=== PATIENT | male | born 1955 | race Caucasian/White ===

== ENCOUNTER 2020-01-29 11:48 | Outpatient (REF) | payer OTHER, SELFPAY | END 2020-01-29 11:49 | disposition home or self-care (01) | LOC: HO.WFDLDS 11:48 | PROVIDERS: Visit Provider Internal Medicine | DX: Z20.828 Contact with and (suspected) exposure to other viral communicable diseases (principal) | CPT/HCPCS: C9803; U0003 ==

== ENCOUNTER 2023-11-16 15:26 | Outpatient (AMB) | payer MEDICARE, OTHER, SELFPAY ==
--- NOTE | 2023-11-16 15:16 | MHC.PC.OV ---
Vital Signs 11/16/23 15:43 Height 5 ft 7.13 in Weight 189 lb BMI 29.5 BP 126/74 Blood Pressure Location Lt brachial Respiration 16 Pulse 92 Pulse Source Pulse Oximeter Pulse Oximetry (%) 96 Oxygen Delivery Method Room Air Intake Visit Reasons: [facility]era from [facility]/sick with cough of 2+weeks Intake Note: New patient visit [employer] Required: No Allergies No Known Allergies Allergy (Verified 11/16/23 15:36) Tobacco use date assessed: 11/16/23 Fall risk assessment: No Falls in past year Last assessed Fall Risk: 11/16/23 Dental Screening Dental Screen Date: 11/16/23 Did you have a dental visit in the last 12 months?: No Did you have a dental problem in the last 6 months where you did not have access to dental care?: Yes Was dental information given to patient?: Patient declined (Patient will go through the [place]) HPI HPI Comments History of Present Illness Details 68 year male with a past medical history of type hyperlipidemia, tobacco use, presenting to [facility]. He was recently seen in the emergency room after presenting with persistent shortness of breath and wheezing. CXR (-) for pneumonia. ACS r/o though EKG with non specific ST changes. He is frequently short of breath and has chest heaviness at times. Given steroids, breathing treatments discharged on prednisone albuterol. He has been using his sisters nebulizer machine and her vials. He just quit smoking ~3 weeks ago. CV: History of hyperlipidemia. On pravastatin. Exertional dyspnea as noted Due for colon cancer screening. ROS see HPI PHYSICAL EXAM: GENERAL: Alert and oriented x 3. NAD EYES: EOMI. Anicteric. HENT: Moist mucous membranes. No scleral icterus. No cervical lymphadenopathy. LUNGS: Clear to auscultation bilaterally. CARDIOVASCULAR: Regular rate and rhythm. No murmur. No JVD. ABDOMEN: Soft, non-tender +bs EXTREMITIES: No edema. Non-tender. SKIN: No rashes or lesions. Warm. NEUROLOGIC: No focal neurological deficits. CN II-XII grossly intact PSYCHIATRIC: Cooperative. Appropriate mood and affect [facility] Social History Housing: House Patient Tobacco Use Status: Former Tobacco user Cigarette Packs Per Day: 1 Years Smoked: 51 e-Cigarette/Vaping Use: Never Used Second Hand Smoke Exposure: No service: Yes Current occupational status: retired Cognitive needs: No Hearing needs: No Vision needs: Yes (needs glasses, [facility]) Questionnaire AUDIT C Alcohol Use Questionnaire (AUDIT-C) 1. How often do you have a drink containing alcohol?: Never 3. How often do you have six or more drinks on one occasion?: Never Total Score: 0 Physical exam (Primary Care) Vital Signs: Last Vital Signs Pulse 92 11/16/23 15:43 Resp 16 11/16/23 15:43 BP 126/74 11/16/23 15:43 Pulse Ox 96 11/16/23 15:43 Oxygen Delivery Method Room Air 11/16/23 15:43 BMI result Body Mass Index 29.5 Tobacco/Smoking Status: Tobacco use Status Tobacco use date assessed 11/16/23 11/16/23 15:46 Patient Tobacco Use Status Former Tobacco user 11/16/23 15:46 e-Cigarette/Vaping Use Never Used 11/16/23 15:46 Coding Level of Care Code New Pt Level 4 (57489) Complex EM visit Add On G2211 Diagnoses Chronic obstructive pulmonary disease with acute exacerbation J44.1 COPD type: COPD with acute exacerbation Exertional dyspnea R06.09 Encounter to establish care Z76.89 Assessment & Plan Assessment & Plan (1) COPD (chronic obstructive pulmonary disease): Code(s): J44.9 - Chronic obstructive pulmonary disease, unspecified Category: Medical Qualifiers: COPD type: COPD with acute exacerbation Qualified Code(s): J44.1 - Chronic obstructive pulmonary disease with (acute) exacerbation Plan: Prednisone completed Still coughing more than baseline. Wheezing has improved. Azithromycin ordered Referral to pulmonary placed PFTs ordered (2) Exertional dyspnea: Code(s): R06.09 - Other forms of dyspnea Category: Medical Plan: Stress test ordered (3) Encounter to establish care: Code(s): Z76.89 - Persons encountering health services in other specified circumstances Category: Medical Plan: 68 y/o to establish care. Past medical, surgical, social and family history reviewed. Orders: Orders Complete Blood Count Auto Diff 11/16/23 E78.5 - Hyperlipidemia, unspecified, R05.9 - Cough, unspecified, Z13.228 - Encounter for screening for other metabolic disorders, Z76.89 - Persons encountering health services in other specified circumstances Lipid Panel 11/16/23 E78.5 - Hyperlipidemia, unspecified, R05.9 - Cough, unspecified, Z13.228 - Encounter for screening for other metabolic disorders, Z76.89 - Persons encountering health services in other specified circumstances Comprehensive Met. Panel 11/16/23 E78.5 - Hyperlipidemia, unspecified, R05.9 - Cough, unspecified, Z13.228 - Encounter for screening for other metabolic disorders, Z76.89 - Persons encountering health services in other specified circumstances Hemoglobin A1c 11/16/23 E78.5 - Hyperlipidemia, unspecified, R05.9 - Cough, unspecified, Z13.228 - Encounter for screening for other metabolic disorders, Z76.89 - Persons encountering health services in other specified circumstances IRON PROFILE 11/16/23 E78.5 - Hyperlipidemia, unspecified, R05.9 - Cough, unspecified, Z13.228 - Encounter for screening for other metabolic disorders, Z76.89 - Persons encountering health services in other specified circumstances PFT pulmonary function test 11/16/23 J44.9 - Chronic obstructive pulmonary disease, unspecified CA stress test 11/16/23 R06.09 - Other forms of dyspnea Referrals Pulmonology Referral J44.9 - Chronic obstructive pulmonary disease, unspecified Medications: New albuterol sulfate 90 mcg/actuation 2 inhalations inhalation .every 4 hour PRN 8.5 grams 3RF shortness of breath or wheezing pravastatin 20 mg PO BEDTIME 90 tabs 3RF azithromycin 500 mg PO DAILY 6 tabs 0RF 6 days Trelegy Ellipta 200-62.5-25 mcg (smzjmyewlis-hpwbckynz-qrohytye) 1 inh inhalation DAILY 3 ea 3RF NS J44.9 - Chronic obstructive pulmonary disease, unspecified albuterol sulfate 2.5 mg (3 mL) inhalation Q4-6H PRN 90 mL 3RF shortness of breath or wheezing
[2023-11-16 15:43] VITALS: BP 126/74; PULSE 92; RESP 16; O2SAT 96; BMI 29.5
== END 2023-11-16 16:17 | disposition home or self-care (01) ==
PROVIDERS: Visit Provider Internal Medicine
DX: J44.1 Chronic obstructive pulmonary disease with (acute) exacerbation (principal); R06.09 Other forms of dyspnea; Z76.89 Persons encountering health services in other specified circumstances

== ENCOUNTER → 2023-11-16 15:26 | Outpatient (BNVA) | payer MEDICARE, SELFPAY | PROVIDERS: Visit Provider Internal Medicine | DX: J44.1 Chronic obstructive pulmonary disease with (acute) exacerbation (principal); R06.09 Other forms of dyspnea; Z76.89 Persons encountering health services in other specified circumstances | CPT/HCPCS: 99202 ==

== ENCOUNTER 2023-11-24 13:17 | Outpatient (AMB) | payer MEDICARE, SELFPAY ==
--- NOTE | 2023-11-24 12:37 | MHC.OFFVIS ---
Vital Signs 11/24/23 13:19 Height 5 ft 7.13 in Weight 190 lb 2 oz BMI 29.7 BP 130/76 Blood Pressure Location Lt brachial Position Sitting Pulse 82 Pulse Source Pulse Oximeter Pulse Oximetry (%) 96 Oxygen Delivery Method Room Air Intake Visit Reasons: COPD Allergies No Known Allergies Allergy (Verified 11/24/23 13:22) HPI HPI COPD: Details: Dave is a pleasant 68 year old male, former smoker, recently quit 1 month ago with 50+ pyh with underlying COPD and HLD. He was referred by PCP for pulmonary evaluation. He was seen at [facility] ED on 11/03 with worsening respiratory symptoms related to COPD exacerbation, treated with prednisone and discharged. CXR revealed findings suggestive of emphysema. He denies prior ED evaluations/admission for respiratory symptoms. He followed up with PCP on 11/15 who started patient on Trelegy and gave azithromycin 500 mg x 5 days given chest congestion and productive cough. He continues to report dyspnea with moderate exertion, cough and wheezing, however did not picking supervisor Trelegy. He has been using albuterol MDI/neb frequently. He denies prior h/o asthma. He reports significant environmental allergies as a child and recently noted symptoms recurring in the spring/fall. He does have cats at home which he is reportedly allergic to. 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 [facility] Social History (Reviewed 11/24/23 @ 13:21 by Xochilt Soares [facility]) Housing: House Patient Tobacco Use Status: Former Tobacco user Cigarette Packs Per Day: 1 Years Smoked: 51 e-Cigarette/Vaping Use: Never Used Second Hand Smoke Exposure: No service: Yes Current occupational status: retired Cognitive needs: No Hearing needs: No Vision needs: Yes (needs glasses, will go [facility]) Review of Systems Const Denies chills, Denies excessive sweating, Denies fever(s), Denies headache(s) and Denies night sweats Eyes Denies dry eyes, Denies irritation and Denies itchy eyes ENT Reports Normal hearing present, Denies headache(s), Denies nasal congestion, Denies nasal discharge, Denies post nasal drip and Denies sore throat Card Denies chest pain, Denies chest pain at rest, Denies chest pain with activity, Denies claudication, Denies leg edema, Reports dyspnea on exertion, Denies orthopnea and Denies paroxysmal nocturnal dyspnea Resp Denies chest congestion, Reports cough, Denies excessive phlegm production, Denies pain on inspiration, Denies pain with cough, Reports dyspnea on exertion, Denies stridor and Reports wheezing Musc Denies myalgias Neuro Reports Normal hearing present and Denies headache(s) Endo Denies excessive sweating Gaurav/Lymph Denies lymphadenopathy Aller/Immun Denies itchy eyes, Denies seasonal rhinorrhea and Reports wheezing Physical Exam Vital Signs: Last Vital Signs Pulse 82 11/24/23 13:19 BP 130/76 11/24/23 13:19 Pulse Ox 96 11/24/23 13:19 Oxygen Delivery Method Room Air 11/24/23 13:19 BMI result Body Mass Index 29.7 Const General: cooperative, healthy appearing, comfortable, no acute distress, well developed and alert Nutritional Appearance: obese Orientation/consciousness: patient oriented x3 Limitations: no limitations HEENT Head: Yes normal to inspection, Yes normocephalic and Yes atraumatic Ears: hearing grossly normal bilaterally and external ears normal Eyes General: appearance normal, both eyes and all related structures Eyelids: Yes eyelids normal Sclerae: sclerae normal EOM: EOMs intact bilaterally Neck Neck: Yes normal visual inspection and Yes no lymphadenopathy Lymphatic: no lymphadenopathy noted Chest Chest palpation & inspection: normal inspection of the chest Resp Effort & Inspection: normal respiratory effort, able to speak in complete sentences, no audible wheezes, no cough, no stridor, not tachypneic, no tripod positioning and no use of accessory muscles Auscultation: wheezes expiratory wheezes and throughout and diminished lung sounds Cardio Jugular venous distension: no JVD Rate: regular rate Rhythm: regular rhythm Skin Other: warm, dry General skin exam: no rashes or lesions noted Neuro General: patient oriented x3 Cranial nerves: Yes Normal hearing present Cognition (Neuro): normal cognition Gait exam (Neuro): Normal gait present Extrem General: Yes normal to inspection, Yes capillary refill normal, Yes no clubbing, cyanosis or edema and Yes no pedal edema Psych Appearance: grossly normal and well kempt Speech and movement: Normal speech and movement present and Clear speech present Affect: normal affect Attitude: cooperative Thought process: Normal thought process present Thought content: Normal thought content present Insight: Good insight present (Psych) Judgement: Good judgement present (Psych) Assessment & Plan Assessment & Plan (1) COPD (chronic obstructive pulmonary disease): Code(s): J44.9 - Chronic obstructive pulmonary disease, unspecified Category: Medical Qualifiers: COPD type: COPD with acute exacerbation Qualified Code(s): J44.1 - Chronic obstructive pulmonary disease with (acute) exacerbation (2) Nicotine dependence, cigarettes, uncomplicated: Code(s): F17.210 - Nicotine dependence, cigarettes, uncomplicated Category: Medical Plan Dave's symptoms are likely related to underlying COPD, unknown severity. Will send for PFT to assess as well as RAST given multiple allergies. Will also send for chest CT given significant smoking history to assess for any underlying parenchymal disease such as emphysema. He is requesting this order be sent to [facility]. Encouraged patient to picking supervisor Trelegy as he has suboptimal effect with albuterol. Discussed importance of good oral hygiene to prevent thrush. He is aware to call office if there are any issues obtaining inhaler. On exam patient with wheezing throughout. Will send prednisone. All questions were answered and patient is in agreement of plan. Will follow up to review results or sooner if needed. Orders: Orders Resp Allergy Profile Region I Today Z91.09 - Other allergy status, other than to drugs and biological substances PFT pulmonary function test Today J44.1 - Chronic obstructive pulmonary disease with (acute) exacerbation Immunoglobulin E Today Z91.09 - Other allergy status, other than to drugs and biological substances CT chest wo IV con Today F1210 - Nicotine dependence, cigarettes, uncomplicated Medications: New prednisone 40 mg (2 x 20 mg) PO DAILY 10 tabs 0RF Coding Level of Care Code New Pt Level 4 (99117) Diagnoses Chronic obstructive pulmonary disease with acute exacerbation J44.1 COPD type: COPD with acute exacerbation Nicotine dependence, cigarettes, uncomplicated F17.210
[2023-11-24 13:19] VITALS: BP 130/76; PULSE 82; O2SAT 96; BMI 29.7
== END 2023-11-24 14:05 | disposition home or self-care (01) ==
PROVIDERS: PCP Internal Medicine; Referring Provider Internal Medicine; Visit Provider Nurse Practitioner Family
DX: J44.1 Chronic obstructive pulmonary disease with (acute) exacerbation (principal); F17.210 Nicotine dependence, cigarettes, uncomplicated
CPT/HCPCS: 99204

== ENCOUNTER 2023-11-24 14:07 | Outpatient (REF) | payer OTHER, SELFPAY ==
[2023-11-24 17:39] LABS: MANUAL DIFF FLAG NO
[2023-11-24 17:44] LABS: Basophils Absolute Auto 0.1 X10*3/uL (0.0-0.2); Basophils Percent Auto 0.9 % (0-2); Eosinophils Absolute Auto 0.6 X10*3/uL (0.0-0.4); Eosinophils Percent Auto 7.9 % (0-4); Hematocrit 47.5 % (42.0-52.0); Hemoglobin 15.7 g/dl (14.0-18.0); Imm Gran Abs Auto 0.04 X10*3/uL (0.00-0.03); Imm Gran Pct Auto 0.6 % (0.0-0.4); Lymphocytes Absolute Auto 1.8 X10*3/uL (1.2-4.9); Lymphocytes Percent Auto 25.2 % (20-40); Mean Corpuscular HGB Conc 33.1 g/dl (31.0-36.0); Mean Corpuscular Volume 90.6 fL (80.0-98.0); Mean Platelet Volume 10.9 fL (9.4-12.4); Monocytes Absolute Auto 0.6 X10*3/uL (0.1-1.2); Neutrophils Percent Auto 57.4 % (45-73); Platelet Count 287 X10*3/uL (160-400); Red Blood Count 5.24 X10*6/uL (4.60-5.80); Red Cell Distribution Width 13.4 % (11.0-16.0)
[2023-11-24 17:54] LABS: Alanine Aminotransferase 24 U/L (0-40); Albumin Level 4.4 g/dL (3.5-5.0); Alkaline Phosphatase 73 U/L (39-117); Anion Gap 12 (12-20); Aspartate Amino Transferase 21 U/L (5-37); Bilirubin Total 0.7 mg/dL (0.0-1.0); Blood Urea Nitrogen 7 mg/dL (9-16); Calcium 9.7 mg/dL (8.4-10.2); Carbon Dioxide 28 mmol/L (22-29); Chloride 104 mmol/L (96-108); Cholesterol 204 mg/dL (<200); Estimated Average Glucose 111 mg/dL; Estimated Glomerular Filt Rate > 60; Glucose Random 85 mg/dL (60-115); HDL Cholesterol 68 mg/dL (>40); Hemoglobin A1C 143.3982 umol/L; Hemoglobin A1c % 5.5 % (<6.0); Iron 123 mcg/dL (45-160); LDL Cholesterol Calculated 122 mg/dL (<100); Percent Iron Saturation 45 % (15-50); Sodium 140 mmol/L (135-145); Total Hemoglobin (HGBA1C) 3970.8163 umol/L; Total Iron Binding Capacity 271 mcg/dL (228-428); Total Protein 7.6 g/dL (6.5-8.0); Triglycerides 74 mg/dL (<150); Unsaturated Iron Binding 148 ug/dL
[2023-11-25 19:09] LABS: Immunoglobulin E 423 kU/L (<OR=114)
[2023-11-29 10:26] LABS: Immunoglobulin E 422 (H)
[2023-11-29 10:27] LABS: Class Cat Dander 5; Class Cockroach 0; Class Dermatophagoides farinae 0; Class Dog Dander 2; Class Mouse Urine Protein 1; D002 - IgE D farinae <0.10; E001 - IgE Cat Dander 91.20 (H); E005 - IgE Dog Dander 3.25 (H); E072-IgE Mouse Urine 0.41 (H); I006-IgE Cockroach, German <0.10
[2023-11-29 10:28] LABS: Class Aspergillus fumigatus 0; Class Cladosporium herbarum 0; Class Timothy Grass 0/1; G006 - IgE Timothy Grass 0.21 (H); M002 - IgE Cladosporium herbar <0.10; M003 - IgE Aspergillus fumigat <0.10
[2023-11-29 10:29] LABS: Class Alternaria alternata 1; Class Mountain Cedar 0/1; Class Oak 0/1; Class Walnut Tree 0/1; M006 - IgE Alternaria alternat 0.38 (H); T006 - IgE Cedar, Mountain 0.32 (H); T007 - IgE Oak, White 0.24 (H); T010 - IgE Walnut 0.20 (H); T011 - IgE Maple Leaf Sycamore 0.33 (H)
[2023-11-29 10:30] LABS: Class Common Ragweed 0; Class Cottonwood 0/1; Class Derm. pterony 0; Class Mugwort 0; Class Sycamore 0/1; Class White Ash 0/1; Class White Mulberry 0/1; D001 IgE D pteronyssinus <0.10; T014 - IgE Cottonwood 0.27 (H); T015 - IgE Ash, White 0.26 (H); T070 - IgE White Mulberry 0.13 (H); W001 - IgE Ragweed, Short <0.10; W006 - IgE Mugwort <0.10
[2023-11-29 10:31] LABS: Class Bermuda Grass 0/1; G002 IgE Bermuda Grass 0.14 (H); M001 IgE Penicillium chrysogen <0.10
[2023-11-29 10:32] LABS: Class Birch 0/1; Class Penicillium crysogenum 0; T003 IgE Common Silver Birch 0.23 (H); T008 IgE Elm, American 0.13 (H)
[2023-11-29 10:33] LABS: Class Elm 0/1; Class Maple Box Elder 0/1; Class Rough Pigweed 0/1; Class Sheep Sorrel 0; T001 IgE Maple/Box Elder 0.34 (H); W014 IgE Pigweed, Common 0.14 (H); W018 IgE Sheep Sorrel <0.10
== END 2023-11-24 14:08 | disposition home or self-care (01) ==
LOC: HO.WFDLDS 14:07
PROVIDERS: Nurse Practitioner Family; Visit Provider Internal Medicine
DX: Z76.89 Persons encountering health services in other specified circumstances (principal); E78.5 Hyperlipidemia, unspecified; R05.9 Cough, unspecified; Z13.228 Encounter for screening for other metabolic disorders; Z91.09 Other allergy status, other than to drugs and biological substances; J44.1 Chronic obstructive pulmonary disease with (acute) exacerbation; F17.210 Nicotine dependence, cigarettes, uncomplicated; Z13.1 Encounter for screening for diabetes mellitus
CPT/HCPCS: 36415; 80053; 80061; 82785; 83036; 83540; 85025; 86003; 99202

== ENCOUNTER 2023-12-30 13:53 | Outpatient (REF) | payer MEDICARE, SELFPAY ==
[2023-12-30 11:28] VITALS: PULSE 91; O2SAT 96
--- NOTE | 2023-12-30 13:58 | PFT_ITS ---
indication: Lung nodule Spirometry [ FEV1 to FVC 81%; FEV1 2.04 L; FVC 2.52 L. No significant response to bronchodilators noted. Maximum voluntary ventilation 105% predicted] Lung Volumes [ total lung capacity 76%] Diffusion Capacity [ DLCO 73% predicted] comparisons [ none] Interpretation [ no obstructive ventilatory defects. No significant response to bronchodilators noted. Normal maximum voluntary ventilation. The patient does have a restrictive ventilatory defect consistent mild restrictive lung disease. In addition to that there is a mild diffusion impairment. Clinical correlation warranted.] MTDD
--- NOTE | 2023-12-31 13:10 | PFT_ITS ---
Indication: COPD Spirometry [FEV1 to FVC 31%; FEV1 1.24 L; FVC 3.98 L. there is a significant response to bronchodilators noted.] Lung Volumes [Total lung capacity 106% predicted; residual volume 126% predicted] Diffusion Capacity [DLCO 80% predicted] Comparisons [none] Interpretation [There is an obstructive ventilatory defect consistent with severe COPD. There was a significant response to bronchodilators noted. Significant air trapping due to the COPD. Diffusing capacity low normal. Clinical correlation warranted.] MTDD
== END 2023-12-30 13:54 | disposition home or self-care (01) ==
LOC: HO.RESP 13:53
PROVIDERS: PCP Internal Medicine; Visit Provider Internal Medicine
DX: J44.1 Chronic obstructive pulmonary disease with (acute) exacerbation (principal)
CPT/HCPCS: 94010; 94640; 94727; 94729

== ENCOUNTER → 2023-12-30 13:58 | Outpatient (BNV) | payer MEDICARE, SELFPAY | PROVIDERS: PCP Internal Medicine; Visit Provider Hospitalist | DX: J44.1 Chronic obstructive pulmonary disease with (acute) exacerbation (principal) | CPT/HCPCS: 94060; 94727; 94729 ==

== ENCOUNTER → 2023-12-31 13:10 | Outpatient (BNV) | payer MEDICARE, SELFPAY | PROVIDERS: PCP Internal Medicine; Visit Provider Hospitalist | DX: J44.9 Chronic obstructive pulmonary disease, unspecified (principal) | CPT/HCPCS: 94060; 94727; 94729 ==

== ENCOUNTER 2024-01-11 13:54 | Outpatient (AMB) | payer OTHER, SELFPAY ==
--- NOTE | 2024-01-11 13:56 | A.OFFVIS_ITS ---
Vital Signs 01/11/24 13:57 Height 5 ft 7.13 in Weight 201 lb 2 oz BMI 31.4 BP 142/70 H Blood Pressure Location Rt brachial Position Sitting Pulse 81 Pulse Source Pulse Oximeter Pulse Oximetry (%) 100 Oxygen Delivery Method Room Air Intake Visit Reasons: COPD Allergies No Known Allergies Allergy (Verified 01/11/24 14:00) HPI HPI COPD: Details: Dave is a pleasant 68 year old male, former smoker, recently quit 1 month ago with 50+ pyh with underlying COPD and HLD. He was recently seen at [facility] ED on 11/03 with worsening respiratory symptoms related to COPD exacerbation, treated with prednisone and discharged with moderate improvement in symptoms. He then followed up with PCP on 11/15 who started patient on Trelegy and gave azithromycin 500 mg x 5 days given chest congestion and productive cough. He continues to report dyspnea with moderate exertion, cough and wheezing, however did not waste picker Trelegy due to costs and had been using albuterol MDI/neb frequently. At the last visit he was started on Symbicort in addition to Spiriva which he receives through the [place] and [facility]. He was also given prednisone as he had moderate wheezing on exam. He reports significant improvements in symptoms with intermittent productive cough and minimal dyspnea/wheezing. Today he presents to review RAST testing and PFT. Orders placed for chest CT however this has not been performed yet. [facility] Social History (Reviewed 01/11/24 @ 14:02 by Xochilt Soares [facility]) Housing: House Patient Tobacco Use Status: Former Tobacco user Cigarette Packs Per Day: 1 Years Smoked: 51 e-Cigarette/Vaping Use: Never Used Second Hand Smoke Exposure: No service: Yes Current occupational status: retired Cognitive needs: No Hearing needs: No Vision needs: Yes (needs glasses, will go to [place]) Review of Systems Const Denies chills, Denies excessive sweating, Denies fever(s), Denies headache(s) and Denies night sweats Eyes Denies dry eyes, Denies irritation and Denies itchy eyes ENT Reports Normal hearing present, Denies headache(s), Denies nasal congestion, Denies nasal discharge, Denies post nasal drip and Denies sore throat Card Denies chest pain, Denies chest pain at rest, Denies chest pain with activity, Denies claudication, Denies leg edema, Reports dyspnea on exertion, Denies orthopnea and Denies paroxysmal nocturnal dyspnea Resp Denies chest congestion, Reports cough, Denies excessive phlegm production, Denies pain on inspiration, Denies pain with cough, Reports dyspnea on exertion, Denies stridor and Reports wheezing Musc Denies myalgias Neuro Reports Normal hearing present and Denies headache(s) Endo Denies excessive sweating Gaurav/Lymph Denies lymphadenopathy Aller/Immun Denies itchy eyes, Denies seasonal rhinorrhea and Reports wheezing Physical Exam Vital Signs: Last Vital Signs Pulse 81 01/11/24 13:57 BP 142/70 H 01/11/24 13:57 Pulse Ox 100 01/11/24 13:57 Oxygen Delivery Method Room Air 01/11/24 13:57 BMI result Body Mass Index 31.4 Const General: cooperative, healthy appearing, comfortable, no acute distress, well developed and alert Nutritional Appearance: obese Orientation/consciousness: patient oriented x3 Limitations: no limitations HEENT Head: Yes normal to inspection, Yes normocephalic and Yes atraumatic Ears: hearing grossly normal bilaterally and external ears normal Eyes General: appearance normal, both eyes and all related structures Eyelids: Yes eyelids normal Sclerae: sclerae normal EOM: EOMs intact bilaterally Neck Neck: Yes normal visual inspection and Yes no lymphadenopathy Lymphatic: no lymphadenopathy noted Chest Chest palpation & inspection: normal inspection of the chest Resp Effort & Inspection: normal respiratory effort, able to speak in complete sentences, no audible wheezes, no cough, no stridor, not tachypneic, no tripod positioning and no use of accessory muscles Auscultation: no wheezes and diminished lung sounds Cardio Jugular venous distension: no JVD Rate: regular rate Rhythm: regular rhythm Skin Other: warm, dry General skin exam: no rashes or lesions noted Neuro General: patient oriented x3 Cranial nerves: Yes Normal hearing present Cognition (Neuro): normal cognition Gait exam (Neuro): Normal gait present Extrem General: Yes normal to inspection, Yes capillary refill normal, Yes no clubbing, cyanosis or edema and Yes no pedal edema Psych Appearance: grossly normal and well kempt Speech and movement: Normal speech and movement present and Clear speech present Affect: normal affect Attitude: cooperative Thought process: Normal thought process present Thought content: Normal thought content present Insight: Good insight present (Psych) Judgement: Good judgement present (Psych) Assessment & Plan Assessment & Plan (1) COPD (chronic obstructive pulmonary disease): Code(s): J44.9 - Chronic obstructive pulmonary disease, unspecified Category: Medical Qualifiers: COPD type: COPD with acute exacerbation Qualified Code(s): J44.1 - Chronic obstructive pulmonary disease with (acute) exacerbation (2) Nicotine dependence, cigarettes, uncomplicated: Code(s): F17.210 - Nicotine dependence, cigarettes, uncomplicated Category: Medical Plan Reviewed PFT which revealed an obstructive ventilatory defect consistent with severe COPD. There was a significant response to bronchodilators noted. Elevated lung volumes suggestive of air trapping due to COPD. Diffusing capacity low normal, 80%. Awaiting chest CT to assess for any underlying parenchymal condition. Reviewed RAST which revealed multiple environmental allergies including cat. Discussed ways to minimize allergen exposures and has been doing well with zyrtec. Advised to continue symbicort 1 inhalation twice daily and spiriva as he has had significant improvement in symptoms. All questions were answered and patient is in agreement of plan. Will follow up in three months or sooner if needed. Coding Level of Care Code Est Pt Level 4 (64586) Diagnoses Chronic obstructive pulmonary disease with acute exacerbation J44.1 COPD type: COPD with acute exacerbation Nicotine dependence, cigarettes, uncomplicated F17.210
[2024-01-11 13:57] VITALS: BP 142/70; PULSE 81; O2SAT 100; BMI 31.4
--- OUTSIDE RECORDS SUMMARY | 2024-01-18 14:44 | XMS_ITS ---
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 This section includes the names of all active insurance providers for the patient. Insurance Provider Type of Coverage Plan Name Start of Policy Coverage End of Policy Coverage Group Number Member ID Insurance Provider's Telephone Number Policy Chao's Name Patient's Relationship to Policy Chao MEDICARE (WNR) MEDICARE (M) PART B Jul 09, 2020 PART B [id number] [id number] AMARA CHI PATIENT MEDICARE (WNR) MEDICARE (M) PART A Jan 09, 2020 PART A [id number] CHI MALONEY PATIENT Selected Encounter This section includes the information on record at [place] for the Encounter. Date/Time Encounter Type Encounter Description Reason Pro vider Source Oct 07, 2023 04:28 PM Outpatient Encounter ADMIN PAT ACTIVTIES (MASNONCT) IHE Encounter Template Text not used by [place] Plan of Treatment: Future Appointments (+ 6 months) and Future Tests (+/- 45 days) The Plan of Treatment section includes future care activities for the patient from all [facility]. This section includes future appointments and future orders which are active, pending or scheduled. Future Appointments This section includes appointments that were scheduled to occur 6 months from the date of the Encounter, up to a maximum of 20 appointments. The data comes from all [facility]. Appointment Date/Time Appointment Type Appointme nt Facility Name Mar 20, 2024 02:00 PM AMBULATORY - MEDICINE [facility] Active, Pending, and Scheduled Orders This section includes a listing of several types of active, pending, and scheduled orders, including clinic medications orders, diagnostic test orders, procedure orders and consult orders; where the start date of the order is 45 days before the date of the Encounter or 45 days after the date of theEncounter. The data comes from all [facility]. Test Date/Time Test Type Test Details Facility Name Sep 21, 2023 12:00 AM Laboratory - Chemi stry Order OCCULT BLOOD FIT X1 SCREEN(IN-HOUSE) [facility] Oct 30, 2023 12:00 AM Laboratory - Chemi stry Order BASIC METABOLIC PANEL (non-fasting) BLOOD (SST-SERUM) [facility] Oct 30, 2023 12:00 AM Laboratory - Chemi stry Order LIVER FUNCTION BLOOD (SST-SERUM) [facility] Oct 30, 2023 12:00 AM Laboratory - Chemi stry Order LIPID PANEL FASTING BLOOD (SST-SERUM) [facility] Oct 30, 2023 12:00 AM Laboratory - Chemi stry Order VITAMIN D (25-OH) BLOOD (SST-SERUM) [facility] Lab Results: +/- 30 days of the encounter This section includes the Chemistry and Hematology Lab Results on record with [place] for the patient. Radiology Reports and Pathology Reports are provided separately, in subsequent sections. Lab Results This section contains the Chemistry/Hematology Results that were resulted 30 days before or 30 daysafter the date of the Encounter. Date/Time Source Result Type Result - Unit Interpretation Reference Range Comment Sep 21, 2023 01:54 PM [facility] LIPID PANEL FASTING Specimen Type: SERUM No comment entered. Ordering Provider: PAPA LANGLEY Report Released Date/Time: Sep 21, 2023 01:41 PM Reporting Lab: [address] [address] Performing Lab: [address] [address] CHOLESTEROL 201 mg/dL H TRIGLYCERIDE 69 mg/dL 0-150 LDL calculated 129 mg/dL 0-129 CHOL/HDL 3.5 HDL CHOLESTEROL 58 mg/dL 40-60 Sep 21, 2023 01:54 PM [facility] BASIC METABOLIC PANEL (non-fasting) Specimen Type: SERUM No comment entered. Ordering Provider: PAPA LANGLEY Report Released Date/Time: Sep 21, 2023 01:41 PM Reporting Lab: [address] [address] Performing Lab: [address] [address] UREA NITROGEN 8 mg/dL 7-25 GLUCOSE 80 mg/dL 65-100 SODIUM 138 mmol/L 135-145 POTASSIUM 4.2 mmol/L 3.5-5.0 CHLORIDE 104 mmol/L 100-110 CO2 23 meq/L 20-30 CREATININE, Serum 0.85 mg/dL 0.50-1.40 eGFR(CKD-EPI 2020) >90 mL/min >60 Sep 21, 2023 01:54 PM [facility] VITAMIN D (25-OH) Specimen Type: SERUM No comment entered. Ordering Provider: PAPA LANGLEY Report Released Date/Time: Sep 21, 2023 01:41 PM Reporting Lab: [address] [address] Performing Lab: [address] [address] VITAMIN D (25-OH) 26 ng/mL 20-50 Sep 21, 2023 01:54 PM [facility] LIVER FUNCTION Specimen Type: SERUM No comment entered. Ordering Provider: PAPA LANGLEY Report Released Date/Time: Sep 21, 2023 01:41 PM Reporting Lab: [address] [address] Performing Lab: [address] [address] PROTEIN,TOTAL 7.5 g/dL 6.0-8.3 ALBUMIN 4.2 g/dL 3.5-5.0 ALKALINE PHOSPHATASE 69 U/L 40-150 AST 21 U/L 5-34 ALT 21 U/L BILIRUBIN, TOTAL 0.6 mg/dL 0.2-1.2 Encounter Notes: All associated encounter notes This section contains the clinical notes associated to the Encounter. Date/Time Encounter Note(s) Provider Source Oct 07, 2023 04:28 PM ADMINISTRATIVE NOTE: LOCAL TITLE: CCC: SCHEDULING ADMINISTRATION STANDARD TITLE: ADMINISTRATIVE NOTE DATE OF NOTE: OCT 07, 2023@16:28:34 ENTRY DATE: OCT 07, 2023@16:28:34 AUTHOR: MONIQUE KNOX EXP COSIGNER: URGENCY: STATUS: COMPLETED CCC: SCHEDULING ADMINISTRATION Has ADDENDA Patient Demographics Patient Name: CHI MALONEY Patient Primary Phone: [phone] Patient Primary [address] [address] [place] [address] Patient : 1955 Patient Age: 68 Current Location: [facility] Call Back Number: [phone] Caller/Recipient Relation to Patient: Self If Other Describe Relation to Patient: OTHER Caller Name: AMARA Scheduling Patient Expects Callback: Yes Administrative Administrative Note Reason: Returned Call Administrative Note Comments: 's returning missed phone regarding recent blood test result. Please reached out to vet at [phone]. Thanks IMPORTANT: This note was created by [facility] Clinical Contact Center staff. Please do not alert the staff member by adding them as a signer for future communications. Alerts are not monitored by this user. /valentín/ MONIQUE MORLEY Signed: 10/07/2023 16:28 Receipt Acknowledged By: 10/08/2023 11:35 /valentín/ JADIEL LARSEN LPN LPN 10/08/2023 08:43 /valentín/ MAURA WOODS,RN-BC REGISTERED NURSE (RN) 10/08/2023 ADDENDUM STATUS: COMPLETED Lab results were provided to . /valentín/ MAURA WOODS,RN-BC REGISTERED NURSE (RN) Signed: 10/08/2023 08:46 [facility]OMONI[facility]
--- OUTSIDE RECORDS SUMMARY | 2024-01-18 14:44 | XMS_ITS | Continuity of Care Document ---
Author Name [facility] Organization [facility] Care Team Providers Care Manager Developmental Name Role Phone [facility] Unavailable Unavailable Problems Combined list of problems from Department of Defense and Veterans Affairs facilities. It does not include entries that were removed or entered in error. Problem Status Onset Date Problem Type Date of Resolution Comments Source cannabinoid user Active Condition [facility] Chronic venous insufficiency Active Condition Mar 10, 2019 Entered By: ROSANGELA LANGLEY Comment: with symptomatic varicositiesMar 10, 2019 Entered By: ROSANGELA LANGLEY Comment: followed by Dr. Rakan Gasca, [facility] Co-management Active Condition Feb Entered By: ROSANGELA LANGLEY Comment: Dr. Saida Gomez, [facility] [place] [facility] Hyperlipidemia (SCT [id number]) Active Condition Mar 10, 2019 Entered By: ROSANGELA LANGLEY Comment: on pravastatinNov 14, 2019 Entered By: ROSANGELA LANGLEY Comment: LDL 03/2019 226; 08/2019 176 [facility] Insomnia Active Condition Jun 03 Entered By: CESAR CHRISTIAN Comment: reviewed [facility] Obstructive sleep apnea Active Condition Jul 09, 2020 Entered By: ROSANGELA LANGLEY Comment: 06/2020 overall Apnea-Hypopnea Index of 9.5/hr. [facility] Smokes tobacco daily (SNOMED CT [id number]) Active Condition [place] Tobacco use Active Condition Mar 10, 2019 Entered By: ROSANGELA LANGLEY Comment: 1 ppdJun 03, 2021 Entered By: CESAR CHRISTIAN Comment: reviewed [facility] Diagnosis: ICD-10-CM Z00.01 Encounter for general adult medical exam w abnormal findings Active Diagnosis [facility] [place] Diagnosis: ICD-10-CM E78.5 Hyperlipidemia, unspecified Active Diagnosis [place] Diagnosis: ICD-10-CM G47.00 Insomnia, unspecified Active Diagnosis [place] Diagnosis: ICD-10-CM Z13.6 Encounter for screening for cardiovascular disorders Active Diagnosis [facility] Diagnosis: ICD-10-CM Z72.0 Tobacco use Active Diagnosis [place] Medications Combined list of outpatient medications from Department of Defense and Veterans Affairs facilities.Medications provided include 1) outpatient medications from the last 15 months, and 2) patient-reported medications. Medication Details Route Status Patient Instructions Prescription Expires Prescription Number Last Dispense Date Ordering Provider Order Date Order Qty Source CETIRIZINE HCL 10MG TAB TAKE ONE TABLET BY MOUTH ONCE DAILY FOR ALLERGIE S ORAL ACTIVE 12/31/2024 [id number] MICHELINE LANGLEY O 2023 90 IELD FLUTICASONE 500MCG/SALM ETEROL 50MCG INHL,ORAL,D ISKUS,60 INHALE 1 PUFF BY MOUTH TWICE DAILY FOR [place] PREVENTI ON WITH COPD - RINSE MOUTH AFTER USE INSTEAD OF BRETZI RESPIR ATORY (INHAL ATION) ACTIVE 12/31/2024 [id number] MICHELINE LANGLEY O 2023 3 IELD MELATONIN 5MG CAP/TAB TAKE ONE CAPSULE/ TABLET BY MOUTH AT BEDTIME NEEDED FOR INSOMNIA ORAL 04/02/2023 [id number] FRANCISCA CHRISTIAN 2022 90 IELD PRAVASTATIN NA 20MG TAB TAKE ONE TABLET BY MOUTH ONCE DAILY FOR CHOLESTE ROL ORAL ACTIVE 06/17/2024 [id number] MICHELINE LANGLEY O 2023 90 IELD PRAVASTATIN NA 20MG TAB TAKE ONE TABLET BY MOUTH ONCE DAILY FOR CHOLESTE ROL ORAL DISCONT INUED 06/23/2023 [id number] MICHELINE LANGLEY O 2022 90 IELD TIOTROPIUM 2.5MCG/ACTU AT INHL,ORAL,6 0D,4GM INHALE 2 PUFFS BY MOUTH ONCE DAILY FOR [place] PREVENTI ON WITH COPD RESPIR ATORY (INHAL ATION) ACTIVE 12/31/2024 [id number] SHIVAM, APOLINARI O 2023 3 IELD TIOTROPIUM 2.5MCG/ACTU AT INHL,ORAL,6 0D,4GM INHALE 2 PUFFS BY MOUTH ONCE DAILY FOR BRONCHOS [place] PREVENTI ON WITH COPD RESPIR ATORY (INHAL ATION) 05/16/2023 [id number] SHIVAM, APOLINARI O 2023 3 IELD TRAZODONE HCL 100MG TAB TAKE ONE-HALF TO ONE TABLET BY MOUTH AT BEDTIME NEEDED -FOR SLEEP ORAL 09/22/2023 [id number] 3 SHIVAM, APOLINARI O 2022 90 IELD Immunizations Combined list of available immunizations from the Department of Defense and Veterans Affairs facilities. Immunization Series Date Given Administered By Site Reaction Lot Number CVX Code Drug Clinical Science Consultant Status Comments Source PNEUMOCOCCAL CONJUGATE PCV20, POLYSACCHARID E MSI039 CONJUGATE, ADJUVANT, PF 2022 WADE LARSEN RIGHT DELTO ID [id number] 216 complet ed [facility] TDAP 2022 WADE LARSEN RIGHT DELTO ID L 115 complet ed [facility] INFLUENZA, UNSPECIFIED FORMULATION 2022 88 complet ed [facility] INFLUENZA, UNSPECIFIED FORMULATION 2021 88 complet ed [facility] COVID-19 (MODERNA), MRNA, LNP-S, PF, 100 MCG/0.5ML DOSE OR 50 MCG/0.25ML DOSE 3 2020 207 complet ed [facility] INFLUENZA VACCINE, QUADRIVALENT, ADJUVANTED 2020 205 complet ed [facility] COVID-19 (MODERNA), MRNA, LNP-S, PF, 100 MCG/0.5 ML DOSE 2 2020 207 complet ed MOD; [id number]; 1 [facility] COVID-19 (MODERNA), MRNA, LNP-S, PF, 100 MCG/0.5 ML DOSE 1 2020 207 complet ed MOD; [id number]; 1 [place] INFLUENZA, INJECTABLE, QUADRIVALENT, PRESERVATIVE FREE 2019 150 complet ed [place] INFLUENZA, SEASONAL, INJECTABLE 2018 141 complet ed [facility] DTAP, UNSPECIFIED FORMULATION 2012 107 complet ed Site: Left Deltoid [place] PNEUMOCOCCAL, UNSPECIFIED FORMULATION 2012 109 complet ed Site: Right Deltoid [place] FLU,3 YRS (HISTORICAL) 2012 88 complet ed Site: Left Deltoid [place] Results Combined list of recent chemistry, hematology and other laboratory results from Department of Defense and Veterans Affairs, ranging from 15 months to all on record, depending upon the facility. Order Name Results Value Reference Range Date Interpretation Specimen Comments Source BASIC METABOLIC PANEL (non-fast ing) UREA NITROGEN [MASS/VOLUM E] IN SERUM OR PLASMA 8 mg/dL 7 - 25 09/20 Specimen Type: SERUM No comment entered. Ordering Provider: AMAIRANI LANGLEY Report Released Date/Time: Sep 21, 2023 01:41 PM Reporting Lab: [facility] [address] [facility] [address] Performing Lab: [facility] [address] [facility] [address] [facility] BASIC METABOLIC PANEL (non-fast ing) GLUCOSE [MASS/VOLUM E] IN SERUM OR PLASMA 80 mg/dL 65 - 100 09/20 Specimen Type: SERUM No comment entered. Ordering Provider: AMAIRANI LANGLEY Report Released Date/Time: Sep 21, 2023 01:41 PM Reporting Lab: [facility] [address] [facility] [address] Performing Lab: [facility] [employer] [address] [facility] BASIC METABOLIC PANEL (non-fast ing) SODIUM [MOLES/VOLU ME] IN SERUM OR PLASMA 138 mmol/L 135 - 145 09/20 Specimen Type: SERUM No comment entered. Ordering Provider: AMAIRANI LANGLEY Report Released Date/Time: Sep 21, 2023 01:41 PM Reporting Lab: [facility] [place] [facility] [address] [address] [facility] [address] Performing Lab: [facility] [place] [facility] [address] [facility] [facility] [address] [facility] [place] [facility] BASIC METABOLIC PANEL (non-fast ing) POTASSIUM [MOLES/VOLU ME] IN SERUM OR PLASMA 4.2 mmol/L 3.5 - 5.0 09/20 Specimen Type: SERUM No comment entered. Ordering Provider: AMAIRANI LANGLEY Report Released Date/Time: Sep 21, 2023 01:41 PM Reporting Lab: [facility] [place] [facility] [address] [address] [facility] [address] Performing Lab: [place] [facility] [address] [address] [facility] [place] [facility] BASIC METABOLIC PANEL (non-fast ing) CHLORIDE [MOLES/VOLU ME] IN SERUM OR PLASMA 104 mmol/L 100 - 110 09/20 Specimen Type: SERUM No comment entered. Ordering Provider: AMAIRANI LANGLEY Report Released Date/Time: Sep 21, 2023 01:41 PM Reporting Lab: [facility] [place] [address] [address] Performing Lab: [place] [facility] [place] [facility] [address] [facility] [facility] [address] [facility] [place] [facility] BASIC METABOLIC PANEL (non-fast ing) CARBON DIOXIDE, TOTAL [MOLES/VOLU ME] IN SERUM OR PLASMA 23 meq/L 20 - 30 09/20 Specimen Type: SERUM No comment entered. Ordering Provider: AMAIRANI LANGLEY Report Released Date/Time: Sep 21, 2023 01:41 PM Reporting Lab: [facility] [place] [facility] [address] [facility] [address] Performing Lab: [place] [facility] [place] [address] [address] [facility] BASIC METABOLIC PANEL (non-fast ing) CREATININE [MASS/VOLUM E] IN SERUM OR PLASMA 0.85 mg/dL 0.50 - 1.40 09/20 Specimen Type: SERUM No comment entered. Ordering Provider: AMAIRANI LANGLEY Report Released Date/Time: Sep 21, 2023 01:41 PM Reporting Lab: [facility] [address] [facility] [address] Performing Lab: [address] [address] [facility] BASIC METABOLIC PANEL (non-fast ing) GLOMERULAR FILTRATION RATE/1.73 SQ M.PREDICTED [VOLUME RATE/AREA] IN SERUM, PLASMA OR BLOOD BY CREATININE- BASED FORMULA (CKD-EPI 2020) >90mL/ min 60 09/20 Specimen Type: SERUM No comment entered. Ordering Provider: AMAIRANI LANGLEY Report Released Date/Time: Sep 21, 2023 01:41 PM Reporting Lab: [address] [address] Performing Lab: [address] [address] [facility] LIPID PANEL FASTING CHOLESTEROL [MASS/VOLUM E] IN SERUM OR PLASMA 201 mg/dL 09/20 H Specimen Type: SERUM No comment entered. Ordering Provider: AMAIRANI LANGLEY Report Released Date/Time: Sep 21, 2023 01:41 PM Reporting Lab: [address] [address] Performing Lab: [address] [address] [facility] LIPID PANEL FASTING TRIGLYCERID E [MASS/VOLUM E] IN SERUM OR PLASMA 69 mg/dL 0 - 150 09/20 Specimen Type: SERUM No comment entered. Ordering Provider: AMAIRANI LANGLEY Report Released Date/Time: Sep 21, 2023 01:41 PM Reporting Lab: [facility] [address] [facility] [address] Performing Lab: [facility] TRN [facility] [address] [facility] [address] [facility] LIPID PANEL FASTING CHOLESTEROL IN LDL [MASS/VOLUM E] IN SERUM OR PLASMA BY CALCULATION 129 mg/dL 0 - 129 09/20 Specimen Type: SERUM No comment entered. Ordering Provider: AMAIRANI LANGLEY Report Released Date/Time: Sep 21, 2023 01:41 PM Reporting Lab: [facility]ITALRNORTH MISSISSIP[facility] CENTERTRN [facility]OSPITALUSEUNIV[facility] [address] [facility] [address] Performing Lab: [facility]OSPITALRST. VINCENT'S CHILTONN [facility] HOSPITALUSEUNIVERSITY OF [facility] [address] [facility] [address] [facility] LIPID PANEL FASTING CHOLESTEROL .TOTAL/CHOL ESTEROL IN HDL [MASS RATIO] IN SERUM OR PLASMA 3.5 09/20 Specimen Type: SERUM No comment entered. Ordering Provider: AMAIRANI LANGLEY Report Released Date/Time: Sep 21, 2023 01:41 PM Reporting Lab: [facility]OSPITALRST. VINCENT'S CHILTONN [facility]OSPITALUSEUNIVERSITY [facility] [address] [facility] [address] Performing Lab: [facility]ITALRNORTH MISSISSIP[facility] MEDICAL CENTERTRN [facility]OSPITALUSEUNIVERSITY OF [facility] [address] [facility] [facility] [address] [facility] LIPID PANEL FASTING CHOLESTEROL IN HDL [MASS/VOLUM E] IN SERUM OR PLASMA 58 mg/dL 40 - 60 09/20 Specimen Type: SERUM No comment entered. Ordering Provider: AMAIRANI LANGLEY Report Released Date/Time: Sep 21, 2023 01:41 PM Reporting Lab: [facility]ITALRNORTH MISSISSIPPI MEDICAL CENTERTRN [facility]OSPITALUSEUNIVERSITY [facility] [address] [facility] [address] Performing Lab: [facility]ITALRNORTH MISSISSIP[facility] MEDICAL CENTERTRN [facility]OSPITALUSEUNIVERSITY OF [facility] [address] [facility] [address] [facility] LIVER FUNCTION PROTEIN [MASS/VOLUM E] IN SERUM OR PLASMA 7.5 g/dL 6.0 - 8.3 09/20 Specimen Type: SERUM No comment entered. Ordering Provider: SHIVAM,AP OLINARIO Report Released Date/Time: Sep 21, 2023 01:41 PM Reporting Lab: [facility] [place] [facility] [address] [facility] [address] Performing Lab: [facility] [place] [facility] [address] [facility] [address] [facility] [place] [facility] LIVER FUNCTION ALBUMIN [MASS/VOLUM E] IN SERUM OR PLASMA 4.2 g/dL 3.5 - 5.0 09/20 Specimen Type: SERUM No comment entered. Ordering Provider: AMAIRANI LANGLEY Report Released Date/Time: Sep 21, 2023 01:41 PM Reporting Lab: [facility] [place] [facility] [address] [address] Performing Lab: [facility] [place] [facility] [address] [facility] [address] [place] [facility] [place] [facility] LIVER FUNCTION ALKALINE PHOSPHATASE [ENZYMATIC ACTIVITY/VO LUME] IN SERUM OR PLASMA 69 U/L 40 - 150 09/20 Specimen Type: SERUM No comment entered. Ordering Provider: AMAIRANI LANGLEY Report Released Date/Time: Sep 21, 2023 01:41 PM Reporting Lab: [facility] [place] [facility] [address] [address] Performing Lab: [facility] [place] [facility] [address] [facility] [address] [facility] [place] [facility] LIVER FUNCTION ASPARTATE AMINOTRANSF ERASE [ENZYMATIC ACTIVITY/VO LUME] IN SERUM OR PLASMA 21 U/L 5 - 34 09/20 Specimen Type: SERUM No comment entered. Ordering Provider: AMAIRANI LANGLEY Report Released Date/Time: Sep 21, 2023 01:41 PM Reporting Lab: [facility] [place] [facility] [address] [address] Performing Lab: [facility] [place] [facility] [address] [address] [facility] [place] [facility] LIVER FUNCTION ALANINE AMINOTRANSF ERASE [ENZYMATIC ACTIVITY/VO LUME] IN SERUM OR PLASMA 21 U/L 09/20 Specimen Type: SERUM No comment entered. Ordering Provider: AMAIRANI LANGLEY Report Released Date/Time: Sep 21, 2023 01:41 PM Reporting Lab: [facility] [address] [facility] [address] Performing Lab: [facility] [address] [facility] [address] [facility] LIVER FUNCTION BILIRUBIN.T OTAL [MASS/VOLUM E] IN SERUM OR PLASMA 0.6 mg/dL 0.2 - 1.2 09/20 Specimen Type: SERUM No comment entered. Ordering Provider: AMAIRANI LANGLEY Report Released Date/Time: Sep 21, 2023 01:41 PM Reporting Lab: [facility] [address] [address] Performing Lab: [address] [address] [facility] VITAMIN D (25-OH) 25-HYDROXYV ITAMIN D3 [MASS/VOLUM E] IN SERUM OR PLASMA 26 ng/mL 20 - 50 09/20 Specimen Type: SERUM No comment entered. Ordering Provider: AMAIRANI LANGLEY Report Released Date/Time: Sep 21, 2023 01:41 PM Reporting Lab: [address] [address] Performing Lab: [address] [address] [facility] HEMOGLOBI N A1C PANEL HEMOGLOBIN A1C/HEMOGLO BIN.TOTAL IN BLOOD BY HPLC 5.0 4.0 - 5.6 04/14 Specimen Type: BLOOD Comment: Values obtained from A1C measurement s can vary. For atypical A1C assays, a reported value of 7.0 could actually be between 6.72 and 7.28 if measured by a reference method. A reported value of 9.0 could actually be between 8.73 and 9.27. Ref: http://www. ngsp.org/[place] Pdata.asp Ordering Provider: AMAIRANI LANGLEY Report Released Date/Time: Apr 08, 2023 09:54 AM Reporting Lab: [facility] [address] [address] Performing Lab: [facility] [address] [address] [facility] [place] TSH THYROTROPIN [UNITS/VOLU ME] IN SERUM OR PLASMA 3.60 u[IU]/ mL 0.35 - 5.00 04/14 Specimen Type: SERUM No comment entered. Ordering Provider: AMAIRANI LANGLEY Report Released Date/Time: Apr 08, 2023 09:54 AM Reporting Lab: [facility] [address] [address] Performing Lab: [facility] [place] [facility] [address] [facility] [address] [place] [facility] [place] [facility] CALCIUM CALCIUM [MASS/VOLUM E] IN SERUM OR PLASMA 9.0 mg/dL 8.5 - 10.2 04/14 Specimen Type: SERUM No comment entered. Ordering Provider: AMAIRANI LANGLEY Report Released Date/Time: Apr 08, 2023 09:54 AM Reporting Lab: [facility] [address] [address] Performing Lab: [facility] [place] [facility] [address] [address] [place] [facility] [facility] MAGNESIUM MAGNESIUM [MASS/VOLUM E] IN SERUM OR PLASMA 2.1 mg/dL 1.6 - 2.6 04/14 Specimen Type: SERUM No comment entered. Ordering Provider: AMAIRANI LANGLEY Report Released Date/Time: Apr 08, 2023 09:54 AM Reporting Lab: [facility] [address] [facility] [address] Performing Lab: [facility] [address] [address] [facility] [place] [facility] VITAMIN D (25-OH) 25-HYDROXYV ITAMIN D3 [MASS/VOLUM E] IN SERUM OR PLASMA 24 ng/mL 20 - 50 04/14 Specimen Type: SERUM No comment entered. Ordering Provider: AMAIRANI LANGLEY Report Released Date/Time: Apr 08, 2023 09:54 AM Reporting Lab: [facility] [place] [address] [address] Performing Lab: [facility] [place] [address] [address] [place] [facility] [place] [facility] MICROALBU MIN CREATININ E RATIO PANEL MICROALBUMI N/CREATININ E [MASS RATIO] IN URINE cancmg /g 0 - 29.9 04/14 Specimen Type: URINE No comment entered. Ordering Provider: AMAIRANI LANGLEY Report Released Date/Time: Apr 08, 2023 09:54 AM Reporting Lab: [facility] [place] [place] [address] [address] Performing Lab: [place] [facility] [place] [address] [address] [facility] MICROALBU MIN CREATININ E RATIO PANEL MICROALBUMI N [MASS/VOLUM E] IN URINE < 0.5mg/ dL 04/14 Specimen Type: URINE No comment entered. Ordering Provider: AMAIRANI LANGLEY Report Released Date/Time: Apr 08, 2023 09:54 AM Reporting Lab: [facility] [place] [address] [address] Performing Lab: [facility] [place] [address] [address] [facility] [facility] MICROALBU MIN CREATININ E RATIO PANEL CREATININE [MASS/VOLUM E] IN URINE 51.63 mg/dL 04/14 Specimen Type: URINE No comment entered. Ordering Provider: AMAIRANI LANGLEY Report Released Date/Time: Apr 08, 2023 09:54 AM Reporting Lab: [facility] [place] [address] [address] Performing Lab: [facility] [place] [facility] [address] [facility] [address] [facility] [place] [facility] Vital Signs Combined list of inpatient and outpatient Vital Signs from Department of Defense and Veterans Affairs, ranging from 12 months to all on record, depending upon the facility. Vital Sign Value Date Comments Source SYSTOLIC BLOOD PRESSURE 119 09/21/19 24 14:28:36 [facility] [place] DIASTOLIC BLOOD PRESSURE 79 024 14:28:36 [facility] [place] PULSE OXIMETRY 97 09/21/2023 14:28:36 [facility] WEIGHT 196.4 09/21/2023 14:28:36 [facility] BMI 29kg/m2 09/21/2023 14:28:36 [facility] PAIN 0 09/21/2023 14:28:36 [facility] HEIGHT 69 09/21/2023 14:28:36 [facility] TEMPERATURE 96.6 09/21/2023 14:28:36 [facility] PULSE 87 09/21/2023 14:28:36 [facility] [place] RESPIRATION 20 09/21/2023 14:28:36 [facility] [place] [facility] SYSTOLIC BLOOD PRESSURE 122 02/15/19 24 15:04:21 [facility] [place] [facility] DIASTOLIC BLOOD PRESSURE 78 024 15:04:21 [facility] [place] [facility] PULSE OXIMETRY 98% 02/15/2023 15:04:21 [facility] WEIGHT 201 02/15/2023 15:04:21 [facility] [place] [facility] BMI 30kg/m2 02/15/2023 15:04:21 [facility] [place] PAIN 0 02/15/2023 15:04:21 [facility] HEIGHT 69 02/15/2023 15:04:21 [facility] [place] [facility] TEMPERATURE 96.9 02/15/2023 15:04:21 [facility] [place] [facility] PULSE 82 02/15/2023 15:04:21 [facility] RESPIRATION 20 02/15/2023 15:04:21 [facility] [place] [facility] Encounters Combined list of: 1) Encounters from Department of Veterans Affairs facilities going back up to thelast 18 months. 2) Encounters from the Department of [facility] facilities going back up to 280 months. Location Location Details Encounter Type Encounter Number Reason For Visit Attending Provider ADM Date DC Date Status Disposition Source [facility] [place] [facility] Outpatient Encounter [id number] 09[place]18 [place] [facility] [facility] [place] [facility] Outpatient Encounter [id number] 09[place]21 [place] [facility] [facility] OFFICE O/P EST MOD 30-39 MIN [id number] Diagnos is: ICD-10- CM Z72.0 Tobacco use<br/ > Steven LANGLEY 09/21 [facility] ELECTROCAR DIOGRAM REPORT [id number] Diagnos is: ICD-10- CM Z13.6 Encount er for screeni ng for cardiov ascular disorde rs
IFEOMA [place] 09/21 [facility] LD OFFICE O/P EST LOW 20-29 MIN [id number] Diagnos is: ICD-10- CM G47.00 Insomni a, unspeci fied
OLE CHRISTIAN 09/30 [facility] [place] [facility] Outpatient Encounter [id number] 12/21 [place] [facility] [place] [facility] [place] [facility] Out[facility] Encounter [id number] 12/21 [facility] [place] En[facility] [id number] 01/11 [facility] [place] En[facility] [id number] 01/21 [facility] [place] En[facility] [id number] 01/21 [facility] [place] [facility] OFFICE O/P EST MOD 30 MIN [id number] Diagnos is: ICD-10- CM Z00.01 Encount er for general adult medical exam w abnorma l finding s
SHIVAM,A POLINARIO 02/15 [place] [facility] OFF[facility] O/P EST MOD 30 MIN [id number] Diagnos is: ICD-10- CM E78.5 Hyperli pidemia , unspeci fied
SHIVAM,A POLINARIO 04/28 [place] [facility] En[facility] [id number] 06/14 [facility] [place] En[facility] [id number] 06/14 [facility] En[facility] [id number] 06/15 [facility] Encounter [id number] 06/21 [facility] Outpatient Encounter [id number] ELIZA ESCOBAR 06/21 [facility] Outpatient Encounter [id number] 06/30 [facility] Outpatient Encounter [id number] 08/15 [facility] [place] OFFICE O/P EST MOD 30 MIN [id number] Diagnos is: ICD-10- CM Z00.01 Encount er for general adult medical exam w abnorma l finding s
Steven LANGLEY 09/20 [facility] Outpatient Encounter [id number] 10/06 [facility] Out[facility] Encounter [id number] 1.10/06 [facility] Out[facility] Encounter [id number] [facility] Outpatient Encounter [id number] 11/04 [facility] Out[facility] Encounter [id number] 12/28 [facility] Out[facility] Encounter [id number] 12/28 [facility] Encounter [id number] 1.12/28 [facility] Outpatient Encounter [id number] 12/30 [facility] Social History Combined list of available smoking, tobacco, and other social history from Department of Defense and Veterans Affairs facilities. 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 [place] Plan of Care List of future care activities from Department of Veterans Affairs facilities. Additional future care activities may be listed in the Assessment and Plan section. Date/Time Care Activity Care Activity Detail Facili ty 03/20/2024 AMBULATORY - MEDICINE AMBULATORY - MEDICI [facility] [place] [facility]
--- OUTSIDE RECORDS SUMMARY | 2024-01-18 14:44 | XMS_ITS | Encounter Summary ---
Author Name [facility] [place] Organization [place] Address [address] [place] [address] Care Team Providers Care Central Office Operator Name Role Phone SHERI LANGLEY Primary Care [...] PART B Jul 09, 2020 PART B [id number] CHI MALONEY PATIENT MEDICARE (WNR) MEDICARE (M) PART A Jan 09, 2020 PART A [id number] [id number] CHI MALONEY PATIENT Selected Encounter This section includes the information on record at [place] for the Encounter. Date/Time Encounter Type Encounter Description Reason Pro vider Source Oct 07, 2023 10:00 AM Outpatient Encounter PRIMARY CARE/MEDICINE IHE Encounter Template Text not used by [place] Plan of Treatment: Future Appointments (+ 6 [...] 20 appointments. The data comes from all [facility]. Appointment Date/Time Appointment Type Appointme nt Facility Name Mar 20, 2024 02:00 PM AMBULATORY - MEDICINE [facility] Active, Pending, and Scheduled Orders This section includes a listing of several types of active, pending, and scheduled orders, including clinic medications orders, diagnostic test orders, procedure orders and consult orders; where the start date of the order is 45 days before the date of the Encounter or 45 days after the date of theEncounter. The data comes from all [facility]. Test Date/Time Test Type Test Details Facility Name Sep 21, 2023 12:00 AM Laboratory - Chemi stry Order OCCULT BLOOD FIT X1 SCREEN(IN-HOUSE) [facility] Oct 30, 2023 12:00 AM Laboratory - Chemi stry Order BASIC METABOLIC PANEL (non-fasting) BLOOD (SST-SERUM) [facility] Oct 30, 2023 12:00 AM Laboratory - Chemi stry Order LIPID PANEL FASTING BLOOD (SST-SERUM) [facility] Oct 30, 2023 12:00 AM Laboratory - Chemi stry Order LIVER FUNCTION BLOOD (SST-SERUM) [facility] Oct 30, 2023 12:00 AM Laboratory - Chemi stry Order VITAMIN D (25-OH) BLOOD (SST-SERUM) [facility] Lab Results: +/- 30 days of the encounter This section includes the Chemistry and Hematology Lab Results on record with [place] for the patient. Radiology Reports and Pathology Reports are provided separately, in subsequent sections. Lab Results This section contains the Chemistry/Hematology Results that were resulted 30 days before or 30 daysafter the date of the Encounter. Date/Time Source Result Type Result - Unit Interpretation Reference Range Comment Sep 21, 2023 01:54 PM [facility] BASIC METABOLIC PANEL (non-fasting) Specimen Type: SERUM No comment entered. Ordering Provider: PAPA LANGLEY Report Released Date/Time: Sep 21, 2023 01:41 PM Reporting Lab: [address] [address] Performing Lab: [address] [address] UREA NITROGEN 8 mg/dL 7-25 GLUCOSE 80 mg/dL 65-100 SODIUM 138 mmol/L 135-145 POTASSIUM 4.2 mmol/L 3.5-5.0 CHLORIDE 104 mmol/L 100-110 CO2 23 meq/L 20-30 CREATININE, Serum 0.85 mg/dL 0.50-1.40 eGFR(CKD-EPI 2020) >90 mL/min >60 Sep 21, 2023 01:54 PM [facility] LIPID PANEL FASTING Specimen Type: SERUM No comment entered. Ordering Provider: PAPA LANGLEY Report Released Date/Time: Sep 21, 2023 01:41 PM Reporting Lab: [address] [address] Performing Lab: [address] [address] CHOLESTEROL 201 mg/dL H TRIGLYCERIDE 69 mg/dL 0-150 LDL calculated 129 mg/dL 0-129 CHOL/HDL 3.5 HDL CHOLESTEROL 58 mg/dL 40-60 Sep 21, 2023 01:54 PM [facility] VITAMIN D (25-OH) Specimen Type: SERUM No comment entered. Ordering Provider: PAPA LANGLEY Report Released Date/Time: Sep 21, 2023 01:41 PM Reporting Lab: [address] [address] Performing Lab: [address] [address] VITAMIN D (25-OH) 26 ng/mL 20-50 Sep 21, 2023 01:54 PM [facility] LIVER FUNCTION Specimen Type: SERUM No comment entered. Ordering Provider: PAPA LANGLEY Report Released Date/Time: Sep 21, 2023 01:41 PM Reporting Lab: [address] [address] Performing Lab: [address] [address] PROTEIN,TOTAL 7.5 g/dL 6.0-8.3 ALBUMIN 4.2 g/dL 3.5-5.0 ALKALINE PHOSPHATASE 69 U/L 40-150 AST 21 U/L 5-34 ALT 21 U/L BILIRUBIN, TOTAL 0.6 mg/dL 0.2-1.2 Encounter Notes: All associated encounter notes This section contains the clinical notes associated to the Encounter. Date/Time Encounter Note(s) Provider Source Oct 07, 2023 10:00 AM LETTERS: LOCAL TITLE: PATIENT LETTER (T) STANDARD TITLE: LETTERS DATE OF NOTE: OCT 07, 2023@10:00 ENTRY DATE: OCT 07, 2023@10:00:32 AUTHOR: ARAVIND GRACE COSIGNER: URGENCY: STATUS: COMPLETED DEPARTMENT OF [facility] [place] Toll Free Number Primary Care Telephone Assistance can be reached at extension [phone] [facility] scheduling can be reached at extension [phone] [facility] scheduling can be reached at ext [phone] [facility] Outpatient [address] [address] [phone] * [phone] * CHI MALONEY [address], [place] [address] Date: OCT 07, 2023 Dear : Our goal at the [facility] is to provide you with quality medical care. We have been trying to reach you unsuccessfully to schedule a appt with you at the [facility], [address] [place] [address] Please call us at Wednesday through Wednesday, 8am-4pm to schedule this appointment. Sincerely, Office Staff for: Primary Care [facility] [address] [place] [address] T [phone] Upcoming Appointments: No data available APPOINTMENT ABBREVIATION BUSTOS (SPOPC OR SO = [facility], [facility]) (GOPC OR GO = [place], [address] [facility]) (NHM or NO = [facility]) (VVC - Video Call) (Tel-X Telephone Visit) (TH - Telehealth) CHI MALONEY [address], [place], [address] [place], Sincerely, Your Primary Care Team [facility] [address] [facility] [address] [place] [address] [place] [address] [phone] [facility] [address] [place] [address] [place] [address] [phone] [facility] [address] [facility],[address]st Floor [address] [place] [phone] [place] [address] ARAVIND GRACE [place]
--- OUTSIDE RECORDS SUMMARY | 2024-01-18 14:44 | XMS_ITS ---
Author Name [facility] [place] Organization [facility] Address [address] [place] [address] Care Team Providers Care Hand Roller Engraver Name Role Phone SHERI LANGLEY Primary Care [...] PART B Jul 09, 2020 PART B [id number] AMARA CHI PATIENT MEDICARE (WNR) MEDICARE (M) PART A Jan 09, 2020 PART A [id number] [id number] CHI MALONEY PATIENT Selected Encounter This section includes the information on record at [place] for the Encounter. Date/Time Encounter Type Encounter Description Reason Pro vider Source Oct 07, 2023 01:21 PM Outpatient Encounter ADMIN PAT ACTIVTIES (MASNONCT) IHE Encounter Template Text not used by [place] Plan of Treatment: Future Appointments (+ 6 [...] 20 appointments. The data comes from all [facility]. Appointment Date/Time Appointment Type Appointme nt Facility Name Mar 20, 2024 02:00 PM AMBULATORY - MEDICINE [facility] Active, Pending, and Scheduled Orders This section includes a listing of several types of active, pending, and scheduled orders, including clinic medications orders, diagnostic test orders, procedure orders and consult orders; where the start date of the order is 45 days before the date of the Encounter or 45 days after the date of theEncounter. The data comes from all [facility]. Test Date/Time Test Type Test Details Facility Name Sep 21, 2023 12:00 AM Laboratory - Chemi stry Order OCCULT BLOOD FIT X1 SCREEN(IN-HOUSE) STOOL [facility] Oct 30, 2023 12:00 AM Laboratory - Chemi stry Order BASIC METABOLIC PANEL (non-fasting) BLOOD (SST-SERUM) [facility] Oct 30, 2023 12:00 AM Laboratory - Chemi stry Order LIPID PANEL FASTING BLOOD (SST-SERUM) [facility] Oct 30, 2023 12:00 AM Laboratory - Chemi stry Order LIVER FUNCTION BLOOD (SST-SERUM) [facility] Oct 30, 2023 12:00 AM Laboratory - Chemi stry Order VITAMIN D (25-OH) BLOOD (SST-SERUM) [facility] Lab Results: +/- 30 days of the encounter This section includes the Chemistry and Hematology Lab Results on record with [place] for the patient. Radiology Reports and Pathology Reports are provided separately, in subsequent sections. Lab Results This section contains the Chemistry/Hematology Results that were resulted 30 days before or 30 daysafter the date of the Encounter. Date/Time Source Result Type Result - Unit Interpretation Reference Range Comment Sep 21, 2023 01:54 PM [facility] BASIC METABOLIC PANEL (non-fasting) Specimen Type: SERUM No comment entered. Ordering Provider: PAPA LANGLEY Report Released Date/Time: Sep 21, 2023 01:41 PM Reporting Lab: [address] [address] Performing Lab: [address] [place] [address] UREA NITROGEN 8 mg/dL 7-25 GLUCOSE 80 mg/dL 65-100 SODIUM 138 mmol/L 135-145 POTASSIUM 4.2 mmol/L 3.5-5.0 CHLORIDE 104 mmol/L 100-110 CO2 23 meq/L 20-30 CREATININE, Serum 0.85 mg/dL 0.50-1.40 eGFR(CKD-EPI 2020) >90 mL/min >60 Sep 21, 2023 01:54 PM [facility] LIPID PANEL FASTING Specimen Type: SERUM No comment entered. Ordering Provider: PAPA LANGLEY Report Released Date/Time: Sep 21, 2023 01:41 PM Reporting Lab: [address] [address] Performing Lab: [address] [address] CHOLESTEROL 201 mg/dL H TRIGLYCERIDE 69 mg/dL 0-150 LDL calculated 129 mg/dL 0-129 CHOL/HDL 3.5 HDL CHOLESTEROL 58 mg/dL 40-60 Sep 21, 2023 01:54 PM [facility] VITAMIN D (25-OH) Specimen Type: SERUM No comment entered. Ordering Provider: PAPA LANGLEY Report Released Date/Time: Sep 21, 2023 01:41 PM Reporting Lab: [address] [address] Performing Lab: [address] [address] VITAMIN D (25-OH) 26 ng/mL 20-50 Sep 21, 2023 01:54 PM [facility] LIVER FUNCTION Specimen Type: SERUM No comment entered. Ordering Provider: PAPA LANGLEY Report Released Date/Time: Sep 21, 2023 01:41 PM Reporting Lab: [address] [address] Performing Lab: [address] [address] PROTEIN,TOTAL 7.5 g/dL 6.0-8.3 ALBUMIN 4.2 g/dL 3.5-5.0 ALKALINE PHOSPHATASE 69 U/L 40-150 AST 21 U/L 5-34 ALT 21 U/L BILIRUBIN, TOTAL 0.6 mg/dL 0.2-1.2 Encounter Notes: All associated encounter notes This section contains the clinical notes associated to the Encounter. Date/Time Encounter Note(s) Provider Source Oct 07, 2023 01:22 PM ADMINISTRATIVE NOTE: LOCAL TITLE: CCC: SCHEDULING ADMINISTRATION STANDARD TITLE: ADMINISTRATIVE NOTE DATE OF NOTE: OCT 07, 2023@13:22 ENTRY DATE: OCT 07, 2023@13:22 AUTHOR: NOAH FIELDS EXP COSIGNER: URGENCY: STATUS: COMPLETED CCC: SCHEDULING ADMINISTRATION Has ADDENDA Patient Demographics Patient Name: CHI MALONEY Patient Primary Phone: [phone] Patient Primary Address: [address] [place], [place] [id number] Patient : 1955 Patient Age: 68 Caller/Recipient Relation to Patient: Self Administrative Administrative Note Reason: Other Administrative Note Comments: [place] is requesting a call back. Reason: would like to know the results of his labs done a couple of weeks ago. Patient is getting low on his cholesterol medication and would like to know if he should continue it. requests Pact Team call him tomorrow. IMPORTANT: This note was created by [facility] Clinical Contact Center staff. Please do not alert the staff member by adding them as a signer for future communications. Alerts are not monitored by this user. /valentín/ NOAH FIELDS Visn 1 [facility] AMSA Signed: 10/07/2023 13:22 Receipt Acknowledged By: 10/08/2023 16:31 /valentín/ JADIEL LARSEN LPN LPN 10/07/2023 13:52 /valentín/ MAURA WOODS,RN-BC REGISTERED NURSE (RN) 10/07/2023 ADDENDUM STATUS: COMPLETED Left a vm message requesting him to call the clinic back to discuss his concerns. /valentín/ MAURA WOODS,RN-BC REGISTERED NURSE (RN) Signed: 10/07/2023 14:05 NOAH FIELDS [place] [facility]
--- OUTSIDE RECORDS SUMMARY | 2024-01-18 14:45 | XMS_ITS | Encounter Summary ---
Author Name [facility] [place] Organization [place] Address [address] [place] [address] Care Team Providers Care Provider Education Specialist Name Role Phone SHERI LANGLEY Primary Care [...] PART B Jul 09, 2020 PART B [id number] CHI MALONEY PATIENT MEDICARE (WNR) MEDICARE (M) PART A Jan 09, 2020 PART A [id number] [id number] SAI MALONEYALD PATIENT Selected Encounter This section includes the information on record at [place] for the Encounter. Date/Time Encounter Type Encounter Description Reason Pro vider Source July 01, 2023 02:18 PM Outpatient Encounter PRIMARY CARE/MEDICINE IHE Encounter Template Text not used by [place] Plan of Treatment: Future Appointments (+ 6 [...] 20 appointments. The data comes from all [place] treatment facilities. Appointment Date/Time Appointment Type Appointme nt Facility Name Sep 09, 2023 02:30 PM AM[place]ULATORY - [place]ICINE [place] [facility] [place] [facility] Sep 21, 2023 02:00 PM [facility] [place] [facility] Encounter Notes: All associated encounter notes This section contains the clinical notes associated to the Encounter. Date/Time Encounter Note(s) Provider Source July 01, 2023 02:18 PM ADMINISTRATIVE NOT E: LOCAL TITLE: ADMINISTRATIVE NOTE STANDARD TITLE: ADMINISTRATIVE NOTE DATE OF NOTE: JULY 01, 2023@14:18 ENTRY DATE: JULY 01, 2023@14:18:53 AUTHOR: NARAYAN CALDWELL EXP COSIGNER: URGENCY: STATUS: COMPLETED ADMINISTRATIVE NOTE Has ADDENDA Please request Colonoscopy/biopsy/lab results/ immunization and medication list from Dr. Saida Gomez, [facility] /valentín/ MAURA WOODS,RN-BC REGISTERED NURSE (RN) Signed: 07/01/2023 14:20 Receipt Acknowledged By: 07/01/2023 15:28 /valentín/ ARAVIND EARLY 07/01/2023 ADDENDUM STATUS: COMPLETED Parks Worker requested medical records from [facility] /valentín/ ARAVIND EARLY Signed: 07/01/2023 15:28 NARAYAN CALDWELL
--- OUTSIDE RECORDS SUMMARY | 2024-01-18 14:45 | XMS_ITS | Encounter Summary ---
Author Name [facility] [place] Address [address] [place] [address] Care Team Providers Care Barrel Scraper Name Role Phone SHERI LANGLEY Primary Care [...] PART B Jul 09, 2020 PART B [id number] [id number] CHI MALONEY PATIENT MEDICARE (WNR) MEDICARE (M) PART A Jan 09, 2020 PART A [id number] [id number] CHI MALONEY PATIENT Selected Encounter This section includes the information on record at [place] for the Encounter. Date/Time Encounter Type Encounter Description Reason Provider Source June 22, 2023 11:10 AM Outpatient Encounter TELEPHONE TRIAGE PRANAV ESCOBAR Shaan Encounter Template Text not used by [place] Plan of Treatment: Future Appointments (+ 6 [...] 20 appointments. The data comes from all [place] treatment facilities. Appointment Date/Time Appointment Type Appointme nt Facility Name Sep 09, 2023 02:30 PM AMBULATORY - [place]ICINE [place] [facility] [place] [facility] Sep 21, 2023 02:00 PM AMBULATORY - MEDICINE [facility] NTR [facility] Encounter Notes: All associated encounter notes This section contains the clinical notes associated to the Encounter. Date/Time Encounter Note(s) Provider Source June 22, 2023 11:10 AM RN PROGRESS NOTE: LOCAL TITLE: CCC: CLINICAL TRIAGE STANDARD TITLE: RN PROGRESS NOTE DATE OF NOTE: JUNE 22, 2023@11:10:09 ENTRY DATE: JUNE 22, 2023@11:10:09 AUTHOR: PRANAV ESCOBAR EXP COSIGNER: URGENCY: STATUS: COMPLETED CCC: CLINICAL TRIAGE Has ADDENDA Patient Demographics Patient Name: CHI MALONEY Patient Primary Address: [address] [place] [address] Patient Primary Phone: [phone] Patient : 1955 Patient Age: 68 Call Back Number: [phone] Caller/Recipient Relation to Patient: Self Emergency Contact: JUAN MONTOYA Triage Summary Chief Complaint: R/S physical Nursing Plan and Disposition Advised of [place] Act UC Benefits Other course(s) of action Generated msg to PACT/Provider Nurse Summary Nurse Summary: [place] calling to reschedule appointment for yearly Physical. He reports current ? allergy symptoms but declines Triage or acute scheduling Forwarding to PC team for f/u scheduling Clinical Contact Center Codes Clinic/Location: V1 CWM PHONE CCC RN /valentín/ PRANAV ESCOBAR VISN1 ROBB RN Signed: 06/22/2023 11:10 Receipt Acknowledged By: 06/22/2023 11:27 /es/ ARAVIND EARLY 06/24/2023 10:23 /es/ JADIEL LARSEN LPN LPN 06/22/2023 11:39 /es/ MAURA WOODS,RN-BC REGISTERED NURSE (RN) 06/22/2023 ADDENDUM STATUS: COMPLETED [employer] spoke to and informed him of his next scheduled appt on 08/16/23 @ 2:00 pm. Also advised of sick call hours if needed. /valentín/ ARAVIND EARLY Signed: 06/22/2023 11:26 PRANAV ESCOBAR [facility]
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
--- OUTSIDE RECORDS SUMMARY | 2024-01-18 14:45 | XMS_ITS ---
Author Name [facility] of [facility] ([place]) Organization [facility] Address [address] [place] [id number] Care Team Providers Care Joint Terminal Attack Controller Name Role Phone SHERI LANGLEY Primary Care [...] PART B Jul 09, 2020 PART B [id number] [facility]ARA [facility] PATIENT MEDICARE (WNR) MEDICARE (M) PART A Jan 09, 2020 PART A [id number] [facility] PATIENT Selected Encounter This section includes the information on record at [place] for the Encounter. Date/Time Encounter Type Encounter Description Reason Pro vider Source Aug 16, 2023 07:14 AM Outpatient Encounter ADMIN PAT ACTIVTIES (MASNONCT) IHE Encounter Template Text not used by [place] Plan of Treatment: Future Appointments (+ 6 [...] 20 appointments. The data comes from all [facility]. Appointment Date/Time Appointment Type Appointme nt Facility Name Sep 09, 2023 02:30 PM AMBULATORY - MEDICINE [facility] Sep 21, 2023 02:00 PM AMBULATORY - MEDICINE [facility] Active, Pending, and Scheduled Orders This section includes a listing of several types of active, pending, and scheduled orders, including clinic medications orders, diagnostic test orders, procedure orders and consult orders; where the start date of the order is 45 days before the date of the Encounter or 45 days after the date of theEncounter. The data comes from all [facility]. Test Date/Time Test Type Test Details Facility Name Sep 21, 2023 12:00 AM Laboratory - Chemi stry Order OCCULT BLOOD FIT X1 SCREEN(IN-HOUSE) STOOL [facility]EC[facility] Encounter Notes: All associated encounter notes This section contains the clinical notes associated to the Encounter. Date/Time Encounter Note(s) Provider Source Aug 16, 2023 07:14 AM ADMINISTRATIVE NOT E: LOCAL TITLE: CCC: SCHEDULING ADMINISTRATION STANDARD TITLE: ADMINISTRATIVE NOTE DATE OF NOTE: AUG 16, 2023@07:14 ENTRY DATE: AUG 16, 2023@07:14:32 AUTHOR: QUIQUELARISA JACINTO COSIGNER: URGENCY: STATUS: COMPLETED Verify Patient Demographics Successfully verified patient demographics vet cancelled his appt for 08/15 @ 2:00PM with pact pcp and R/s for 09/20 @ 2:00PM /valentín/ LARISA EARLY Signed: 08/16/2023 07:15 Receipt Acknowledged By: 08/16/2023 08:39 /valentín/ LARISA [facility]
--- OUTSIDE RECORDS SUMMARY | 2024-01-18 14:46 | XMS_ITS | Encounter Summary ---
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 Date/Time Encounter Type Encounter Description Reason Provider Source Feb 15, 2023 02:30 PM OFFICE O/P EST MOD 30 MIN PRIMARY CARE/MEDICINE ICD-10-CM Z00.01 Encounter for general adult medical exam w abnormal findings RICKY LANGLEY IHShaan Encounter Template Text not used by [place] Assessments - Encounter Diagnoses This section includes the primary and secondary diagnoses documented for the Encounter. Date/Time Primary/Secondary Diagnosis Diagnosis Name Provider Source Feb 15, 2023 04:35 PM PRIMARY Encounter for general adult medical exam w abnormal findings ANNELIESE LANGLEY [place] Feb 15, 2023 04:35 PM SECONDARY Hyperlipidemia, unspecified SHIVAMANNELIESE Harris [place] Feb 15, 2023 04:35 PM SECONDARY Tobacco use ANNELIESE LANGLEY [place] Plan of Treatment: Future Appointments (+ 6 months) and Future Tests (+/- 45 days) The Plan of Treatment section includes future care activities for the patient from all [place] treatmentfacilities. This section includes future appointments and future orders which are active, pending or scheduled. Future Appointments This section includes appointments that were scheduled to occur 6 months from the date of the Encounter, up to a maximum of 20 appointments. The data comes from all [place] treatment facilities. Appointment Date/Time Appointment Type Appointme nt Facility Name Apr 29, 2023 12:30 PM AMBULATORY - MEDICINE [facility] Social History: Smoking Status (Most current) and Tobacco Use (All prior to encounter date) This section includes the most current, and the historical, smoking and tobacco- related health factors from the [place] facility where the Encounter took place. Current Smoking Status This section includes the most current smoking, or tobacco-related health factor, from the [place] facility where the Encounter took place. Date/Time Current Smoking Status Comment Facil itnam June 22, 2022 02:30 PM VA-TOBACCO USER EVERY DAY [place] Tobacco Use History This section includes a history of the smoking, or tobacco-related health factors, that were collected on or before the date of the Encounter. The data comes from the [place] facility where the Encounter took place. Date/Time Smoking Status/Tobacco Use Comment F acility June 22, 2022 02:30 PM VA-TOBACCO USE ADVICE [facility] June 22, 2022 02:30 PM VA-TOBACCO USE CARE TRANSITION MGR NO [place] June 22, 2022 02:30 PM VA-TOBACCO USE MED NO [place] June 22, 2022 02:30 PM VA-TOBACCO USE WI 30 MIN OF WAKEUP [place] June 22, 2022 02:30 PM VA-TOBACCO USER EVERY DAY [facility] Jun 03, 2021 01:30 PM VA-TOBACCO USE 30 YEARS OR MORE [facility] Jun 03, 2021 01:30 PM VA-TOBACCO USE ADVICE [place] Jun 03, 2021 01:30 PM VA-TOBACCO USE CARE TRANSITION MGR NO [place] Jun 03, 2021 01:30 PM VA-TOBACCO USE MED NO [place] Jun 03, 2021 01:30 PM VA-TOBACCO USE WI 30 MIN OF WAKEUP [place] Jun 03, 2021 01:30 PM VA-TOBACCO USER EVERY DAY [facility] Apr 22, 2020 01:00 PM VA-TOBACCO USE 30 YEARS OR MORE [place] Apr 22, 2020 01:00 PM VA-TOBACCO USE ADVICE [place] Apr 22, 2020 01:00 PM VA-TOBACCO USE CARE TRANSITION MGR NO [place] Apr 22, 2020 01:00 PM VA-TOBACCO USE MED NO [place] Apr 22, 2020 01:00 PM VA-TOBACCO USE WI 30 MIN OF WAKEUP [place] Apr 22, 2020 01:00 PM VA-TOBACCO USER EVERY DAY [facility] Feb 21, 2019 12:24 PM VA-TOBACCO USE 30 YEARS OR MORE [place] Feb 21, 2019 12:24 PM VA-TOBACCO USE ADVICE [place] Feb 21, 2019 12:24 PM VA-TOBACCO USE CARE TRANSITION MGR NO [place] Feb 21, 2019 12:24 PM VA-TOBACCO USE MED NO [place] Feb 21, 2019 12:24 PM VA-TOBACCO USE WI 30 MIN OF RIVERSIDEUP [place] Feb 21, 2019 12:24 PM VA-TOBACCO USER EVERY DAY [facility] Apr 20, 2012 09:05 AM CURRENT SMOKER pt smokes a half a pack of cigaretts a day. [facility] Apr 20, 2012 09:05 AM V1-PT DECLINES REF TO TOBACCO CESS PRGM [place] Apr 20, 2012 09:05 AM V1-PT THINKING ABO UT QUIT TOBACCO USE [place] Encounter Notes: All associated encounter notes This section contains the clinical notes associated to the Encounter. Date/Time Encounter Note(s) Provider Source Apr 08, 2023 10:00 AM ADDENDUM: LOCAL TITLE: Addendum STANDARD TITLE: ADDENDUM DATE OF NOTE: APR 08, 2023@10:00:09 ENTRY DATE: APR 08, 2023@10:00:09 AUTHOR: SHERI LANGLEY EXP COSIGNER: URGENCY: STATUS: COMPLETED Apparently was unable to do labs amd cancelled his [facility] appt. Noted he also has not been able to do his PFT. Studies reordered. Ms. Nava - please reschedule VVC in one week for discussion of labs. 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 Daughter and two grandkids lives with him. Antitiffanie. Rents half og house to [id number] Problem list and medications reviewed. Last Labs: summer 2022 Active problems - Computerized Problem List is the source for the followin. Obstructive sleep apnea 06/2020 overall Apnea-Hypopnea Index of 9.5/hr. 2. cannabinoid user 3. Insomnia reviewed 4. Hyperlipidemia (SCT [id number]) on pravastatin LDL 03/2019 226; 08/2019 176 5. Tobacco use 1 ppd reviewed 6. Chronic venous insufficiency with symptomatic varicosities followed by Dr. Rakan Gasca, Vascular 7. Co-management Dr. Saida Gomez, [facility] 8. 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 In the interim significant lifestyle changes including intentional weight loss, cessation of alcohol intake, dramatic decrease in tobacco use (switched to cheaper cigarettes of which makes him sick). Comanagement -similarly declined usual preventative measures including pulmonary function tests/colon cancer screening/etc. Suspected COPD - declined PFT; trial of anticholinergic agent History of tobacco use -declines cancer screening; encouraged to continue smoking cessation completely. History of alcohol use Intentional weight loss > May recheck lipids, video appointment for follow-up Chronic issues reviewed briefly; no changes to management unless specified above. RTC 6 months with labs. TIME ATTESTATION: Time spent directly with the patient was ( x ) 30 minutes More than 50% of the time spent with the patient included counselling regarding the admission Medical Review, History and Physical Examination, discussion of the findings, both remote and local data in the medical record, management, and patient education for the annotated medical conditions above. Discussed with patient and agrees to plan. VA and Non VA meds were reconciled. Today's documentation was made using voice recognition software. This note may contain spelling/grammatical errors secondary to this software. Patient provided copies of labs/studies and medication list. Upcoming Appointments: 06/22/2023 14:00 CWM/SO/PACT 9 Med Reconciliation: Active Outpatient Medications (including Supplies): Active Outpatient Medications Status 1) MELATONIN 5MG CAP/TAB TAKE ONE CAPSULE/TABLET BY ACTIVE MOUTH AT BEDTIME NEEDED FOR INSOMNIA 2) PRAVASTATIN NA 20MG TAB TAKE ONE TABLET BY MOUTH ONCE ACTIVE DAILY FOR CHOLESTEROL 3) TRAZODONE HCL 100MG TAB TAKE ONE-HALF TO ONE TABLET ACTIVE BY MOUTH AT BEDTIME NEEDED -FOR SLEEP Medication (Local) Status No local medications found. Medication (Remote) Status No remote medications found. /valentín/ SHERI LANGLEY MD PHYSICIAN Signed: 02/15/2023 16:35 04/08/2023 ADDENDUM STATUS: COMPLETED Supervisor Sound Technician scheduled VVC on 04/29/23 @ 12:30 pm. /valentín/ ARAVIND EARLY Signed: 04/08/2023 10:28 SHERI LANLGEY [place] Feb 15, 2023 03:05 PM PREVENTIVE MEDICIN E NURSING NOTE: LOCAL TITLE: CLINICAL REMINDERS/NURSING STANDARD TITLE: PREVENTIVE MEDICINE NURSING NOTE DATE OF NOTE: FEB 15, 2023@15:05 ENTRY DATE: FEB 15, 2023@15:05:18 AUTHOR: JADIEL LARSENIGNER: URGENCY: STATUS: COMPLETED CLINICAL REMINDERS/NURSING Has ADDENDA Suicide Screen: C-SSRS Screening [place] Suicide Severity Rating Scale (C-SSRS) screener 1. Over the past month, have you wished you were or wished you could go to sleep and not wake up? No 2. Over the past month, have you had any actual thoughts of killing yourself? No 3. Over the past month, have you been thinking about how you might do this? Response not required due to responses to other questions. 4. Over the past month, have you had these thoughts and had some intention of acting on them? Response not required due to responses to other questions. 5. Over the past month, have you started to work out or worked out the details of how to kill yourself? Response not required due to responses to other questions. 6. If yes, at any time in the past month did you intend to carry out this plan? Response not required due to responses to other questions. 7. In your lifetime, have you ever done anything, started to do anything, or prepared to do anything to end your life (for example, collected pills, obtained a gun, gave away valuables, went to the roof but didn't jump)? No 8. If YES, was this within the past 3 months? Response not required due to responses to other questions. BMI>30/>24.99 High Risk: Patient declines to discuss weight management. Patient declined weight discussion. Discussed revisiting at a future visit. Influenza Immunization: The patient has received the seasonal influenza vaccine for the current season at another location. Documented: INFLUENZA, UNSPECIFIED FORMULATION Historical Date Administered: 2022 Exact date unknown Outside Location: Outside Healthcare Provider Information Source: SOURCE UNSPECIFIED COVID-19 Immunization: Refused Moderna Monovalent COVID-19 vaccine Immunization: COVID-19 (MODERNA), MRNA, LNP-S, PF, 50 MCG/0.5 ML (AGES 12+ YEARS) Refusal Reason: PATIENT DECISION Patient refuses the COVID-19 (MODERNA), MRNA, LNP-S, PF, 50 MCG/0.5 ML (AGES 12+ YEARS) immunization Date Documented: 02/15/23 15:08 Eye Care At-Risk Screen : Patient identified to be at risk for the following eye condition(s): MACULAR DEGENERATION: Macular Degeneration Risk Factors Information: Reminder Term: VA-AMD RISK FACTORS Encounter Diagnosis: 09/21/2022@13:30 Z72.0 (ICD-10-CM) Tobacco use rank: PRIMARY Prov. Narr. - Tobacco use ([facility] [id number]) Action: Referral Ordered: Comprehensive Eye Exam Patient has active eye problems/symptoms. Schedule for a comprehensive eye exam ordered. MED REC COMPLETED BY PROVIDER Screen for Abd Aortic Aneurysm: The patient declines to undergo ultrasound to screen for possible abdominal aortic aneurysm. Comment: REFUSED ULTRASOUND. MED REC COMPLETED BY PROVIDER DURING VISIT. /valentín/ JADIEL LARSEN LPN LPN Signed: 02/15/2023 15:12 06/29/2023 ADDENDUM STATUS: COMPLETED Influenza Immunization: The patient has received the seasonal influenza vaccine for the current season at another location. Documented: INFLUENZA, UNSPECIFIED FORMULATION Historical Date Administered: Oct 24, 2021 Outside Location: Outside Healthcare Provider Information Source: [employer] COVID-19 Immunization: Moderna Patient received a prior dose of the Moderna COVID-19 Vaccine. 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 Daughter and two grandkids lives with him. Rents half og house to [id number] Problem list and medications reviewed. Last Labs: summer 2022 Active problems - Computerized Problem List is the source for the followin. Obstructive sleep apnea 06/2020 overall Apnea-Hypopnea Index of 9.5/hr. 2. cannabinoid user 3. Insomnia reviewed 4. Hyperlipidemia ([facility] [id number]) on pravastatin LDL 03/2019 226; 08/2019 176 5. Tobacco use 1 ppd reviewed 6. Chronic venous insufficiency with symptomatic varicosities followed by Dr. Rakan Gasca, [facility] 7. Co-management Dr. Saida Gomez, [facility] 8. 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 In the interim significant lifestyle changes including intentional weight loss, cessation of alcohol intake, dramatic decrease in tobacco use (switched to cheaper cigarettes of which makes him sick). Comanagement -similarly declined usual preventative measures including pulmonary function tests/colon cancer screening/etc. Suspected COPD - declined PFT; trial of anticholinergic agent History of tobacco use -declines cancer screening; encouraged to continue smoking cessation completely. History of alcohol use Intentional weight loss > May recheck lipids, video appointment for follow-up Chronic issues reviewed briefly; no changes to management unless specified above. RTC 6 months with labs. TIME ATTESTATION: Time spent directly with the patient was ( x ) 30 minutes More than 50% of the time spent with the patient included counselling regarding the admission Medical Review, History and Physical Examination, discussion of the findings, both remote and local data in the medical record, management, and patient education for the annotated medical conditions above. Discussed with patient and agrees to plan. VA and Non VA meds were reconciled. Today's documentation was made using voice recognition software. This note may contain spelling/grammatical errors secondary to this software. Patient provided copies of labs/studies and medication list. Upcoming Appointments: 06/22/2023 14:00 CWM/SO/PACT 9 Med Reconciliation: Active Outpatient Medications (including Supplies): Active Outpatient Medications Status 1) MELATONIN 5MG CAP/TAB TAKE ONE CAPSULE/TABLET BY ACTIVE MOUTH AT BEDTIME NEEDED FOR INSOMNIA 2) PRAVASTATIN NA 20MG TAB TAKE ONE TABLET BY MOUTH ONCE ACTIVE DAILY FOR CHOLESTEROL 3) TRAZODONE HCL 100MG TAB TAKE ONE-HALF TO ONE TABLET ACTIVE BY MOUTH AT BEDTIME NEEDED -FOR SLEEP Medication (Local) Status No local medications found. Medication (Remote) Status No remote medications found. /shekhar LANGLEY MD PHYSICIAN Signed: 02/15/2023 16:35 04/08/2023 ADDENDUM STATUS: COMPLETED Apparently was unable to do labs amd cancelled his VVC appt. Noted he also has not been able to do his PFT. Studies reordered. Ms. Nava - please reschedule VVC in one week for discussion of labs. /shekhar LANGLEY MD PHYSICIAN Signed: 04/08/2023 10:01 Receipt Acknowledged By: 04/08/2023 10:28 /shekhar EARLY 04/08/2023 ADDENDUM STATUS: COMPLETED Supervisor Sound Technician scheduled VVC on 04/29/23 @ 12:30 pm. /shekhar EARLY Signed: 04/08/2023 10:28 SHERI LANGLEY [facility]
--- OUTSIDE RECORDS SUMMARY | 2024-01-18 14:46 | XMS_ITS | Encounter Summary ---
Author Name [facility] [place] Organization [place] Address [address] [place] [address] Care Team Providers Care Silo Man Name Role Phone SHERI LANGLEY Primary Care [...] PART B Jul 09, 2020 PART B [id number] [facility] PATIENT MEDICARE (WNR) MEDICARE (M) PART A Jan 09, 2020 PART A [id number] [facility] MALONE[facility] PATIENT Selected Encounter This section includes the information on record at [place] for the Encounter. Date/Time Encounter Type Encounter Description Reason Provider Source Apr 29, 2023 12:30 PM OFFICE O/P EST MOD 30 MIN PRIMARY CARE/MEDICINE ICD-10-CM E78.5 Hyperlipidemia, unspecified SHIVAM,APOLI NARIO IHE Encounter Template Text not used by [facility] Assessments - Encounter Diagnoses This section includes the primary and secondary diagnoses documented for the Encounter. Date/Time Primary/Secondary Diagnosis Diagnosis Name Provider Source Apr 29, 2023 01:14 PM PRIMARY Hyperlipidemia, unspecified SHIVAM,APOLIN ARIO JACKPOT Apr 29, 2023 01:14 PM SECONDARY Tobacco use ANNELIESE LANGLEY JACKPOT Plan of Treatment: Future Appointments (+ 6 months) and Future Tests (+/- 45 days) The Plan of Treatment section includes future care activities for the patient [facility] [place] [facility]. This section includes future appointments and future orders which are active, pending or scheduled. Future Appointments This section includes appointments that were scheduled to occur 6 months from the date of the Encounter, up to a maximum of 20 appointments. The data comes from all [facility] facilities. Appointment Date/Time Appointment Type Appointme nt Facility Name Sep 09, 2023 02:30 PM AMBULATORY - MEDICINE [facility] Sep 21, 2023 02:00 PM AMBULATORY MEDICINE [facility] Active, Pending, and Scheduled Orders This section includes a listing of several types of active, pending, and scheduled orders, including clinic medications orders, diagnostic test orders, procedure orders and consult orders; where the start date of the order is 45 days before the date of the Encounter or 45 days after the date of theEncounter. The data comes from all [facility]. Test Date/Time Test Type Test Details Facility Name Apr 08, 2023 12:00 AM Laboratory - Chemi stry Order OCCULT BLOOD FIT X1 SCREEN(IN-HOUSE) STOOL FECES SP [facility] Lab Results: +/- 30 days of the encounter This section includes the Chemistry and Hematology Lab Results on record with [place] for the patient. Radiology Reports and Pathology Reports are provided separately, in subsequent sections. Lab Results This section contains the Chemistry/Hematology Results that were resulted 30 days before or 30 daysafter the date of the Encounter. Date/Time Source Result Type Result - Unit Interpretation Reference Range Comment Apr 15, 2023 12:00 PM [facility] HEMOGLOBIN A1C PANEL Specimen Type: BLOOD Comment: Values obtained from A1C measurements can vary. For atypical A1C assays, a reported value of 7.0 could actually be between 6.72 and 7.28 if measured by a reference method. A reported value of 9.0 could actually be between 8.73 and 9.27. Ref: http://www.ngs p.org/CAPdata. asp Ordering Provider: RICKY LANGLEY Report Released Date/Time: Apr 08, 2023 09:54 AM Reporting Lab: [facility] [place] [facility] [address] [facility] [address] Performing Lab: [place] [facility] [address] [facility] [address] HEMOGLOBIN A1C 5.0 4.0-5.6 Apr 15, 2023 12:00 PM [facility] TSH Specimen Type: SERUM No comment entered. Ordering Provider: RICKY LANGLEY Report Released Date/Time: Apr 08, 2023 09:54 AM Reporting Lab: [facility] [address] [facility] [address] Performing Lab: [facility] [address] [address] TSH 3.60 u[IU]/mL 0.35-5.00 Apr 15, 2023 12:00 PM [facility] CALCIUM Specimen Type: SERUM No comment entered. Ordering Provider: RICKY LANGLEY Report Released Date/Time: Apr 08, 2023 09:54 AM Reporting Lab: [facility] [address] [address] Performing Lab: [facility] [address] [address] CALCIUM 9.0 mg/dL 8.5-10.2 Apr 15, 2023 12:00 PM [facility] MAGNESIUM Specimen Type: SERUM No comment entered. Ordering Provider: RICKY LANGLEY Report Released Date/Time: Apr 08, 2023 09:54 AM Reporting Lab: [facility] [address] [address] Performing Lab: [facility] [address] [address] MAGNESIUM 2.1 mg/dL 1.6-2.6 Apr 15, 2023 12:00 PM [facility] VITAMIN D (25-OH) Specimen Type: SERUM No comment entered. Ordering Provider: RICKY LANGLEY Report Released Date/Time: Apr 08, 2023 09:54 AM Reporting Lab: [facility] [address] [facility] [address] Performing Lab: [facility] [address] [address] VITAMIN D (25-OH) 24 ng/mL 20-50 Apr 15, 2023 12:00 PM [facility] MICROALBUMIN CREATININE RATIO PANEL Specimen Type: URINE No comment entered. Ordering Provider: RICKY LANGLEY Report Released Date/Time: Apr 08, 2023 09:54 AM Reporting Lab: [address] [address] Performing Lab: [address] [address] MICROALBUMIN/C REATININE RATIO canc mg/g 0-29.9 MICROALBUMIN,Q UANTITATIVE < 0.5 mg/dL RR UNAVAIL CREATININE URINE 51.63 mg/dL Apr 15, 2023 12:00 PM [facility] VITAMIN B12 Specimen Type: SERUM No comment entered. Ordering Provider: RICKY LANGLEY Report Released Date/Time: Apr 08, 2023 09:54 AM Reporting Lab: [facility] [address] [facility] [address] Performing Lab: [address] [address] VITAMIN B12 333 pg/mL 200-900 Apr 15, 2023 12:00 PM [facility] BASIC METABOLIC PANEL (fasting) Specimen Type: SERUM No comment entered. Ordering Provider: RICKY LANGLEY Report Released Date/Time: Apr 08, 2023 09:54 AM Reporting Lab: [facility] [address] [facility] [address] Performing Lab: [address] [address] UREA NITROGEN 9 mg/dL 7-25 GLUCOSE 88 mg/dL 65-100 SODIUM 140 mmol/L 135-145 POTASSIUM 4.2 mmol/L 3.5-5.0 CHLORIDE 105 mmol/L 100-110 CO2 25 meq/L 20-30 CREATININE, Serum 0.84 mg/dL 0.50-1.40 eGFR(CKD-EPI 2020) >90 mL/min >60 Apr 15, 2023 12:00 PM [facility] LIPID PANEL FASTING Specimen Type: SERUM No comment entered. Ordering Provider: RICKY LANGLEY Report Released Date/Time: Apr 08, 2023 09:54 AM Reporting Lab: [address] [address] Performing Lab: [address] [address] CHOLESTEROL 198 mg/dL TRIGLYCERIDE 71 mg/dL 0-150 LDL calculated 121 mg/dL 0-129 CHOL/HDL 3.1 HDL CHOLESTEROL 63 mg/dL H 40-60 Apr 15, 2023 12:00 PM [facility] LIVER FUNCTION Specimen Type: SERUM No comment entered. Ordering Provider: RICKY LANGLEY Report Released Date/Time: Apr 08, 2023 09:54 AM Reporting Lab: [address] [address] Performing Lab: [address] [address] PROTEIN,TOTAL 7.6 g/dL 6.0-8.3 ALBUMIN 4.0 g/dL 3.5-5.0 ALKALINE PHOSPHATASE 68 U/L 40-150 AST 20 U/L 5-34 ALT 18 U/L BILIRUBIN, TOTAL 0.6 mg/dL 0.2-1.2 Apr 15, 2023 12:00 PM [facility] CBC AND DIFF (AUTO) Specimen Type: BLOOD No comment entered. Ordering Provider: RICKY LANGLEY Report Released Date/Time: Apr 08, 2023 09:54 AM Reporting Lab: [address] [address] Performing Lab: [facility] [address] [facility] [address] WBC 8.87 10*3/uL 4.50-11.00 RBC 5.25 10*6/uL 4.23-5.66 HGB 16.1 g/dL 12.8-17 HCT 48.1 39.2-50.4 MCV 91.6 fL 82-99 MCHC 33.5 g/dL 30.8-35.1 PLT 244 10*3/uL 140-360 RDW-CV 13.5 12.0-16.0 [place], Abs 0.72 10*3/uL 0.30-1.10 MCH 30.7 pg 26.2-32.6 Neut % 66.9 43.7-75.8 Lymph % 21.4 14.0-42.3 [place] % 8.1 5.1-13.7 Eos % 2.3 0.4-6.8 Baso % 0.7 0.1-2.0 Neut, Abs 5.94 10*3/uL 2.20-7.60 Lymph, Abs 1.90 10*3/uL 1.00-3.20 Eos, Abs 0.20 10*3/uL 0.03-0.44 Baso, Abs 0.06 10*3/uL 0.01-0.13 Immature Gran % 0.6 0.0-0.7 Immature Gran, Abs 0.05 10*3/uL 0.00-0.06 Social History: Smoking Status (Most current) and Tobacco Use (All prior to encounter date) This section includes the most current, and the historical, smoking and tobacco- related health factors from the [place] facility where the Encounter took place. Current Smoking Status This section includes the most current smoking, or tobacco-related health factor, from the [place] facility where the Encounter took place. Date/Time Current Smoking Status Comment Viky itnam June 22, 2022 02:30 PM VA-TOBACCO USE [place] 30 MIN OF WAKE UP JACKPOT Tobacco Use History This section includes a history of the smoking, or tobacco-related health factors, that were collected on or before the date of the Encounter. The data comes from the [place] facility where the Encounter took place. 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 JACKPOT June 22, 2022 02:30 PM VA-TOBACCO USE MED NO JACKPOT June 22, 2022 02:30 PM VA-TOBACCO USE WI 30 MIN OF WAKEUP JACKPOT June 22, 2022 02:30 PM VA-TOBACCO USER EVERY DAY JACKPOT Jun 03, 2021 01:30 PM VA-TOBACCO USE 30 YEARS OR MORE JACKP[place] Jun 03, 2021 01:30 PM VA-TOBACCO USE ADVICE [place] Jun 03, 2021 01:30 PM VA-TOBACCO USE STAFF MECHANICAL ENGINEER NO JACKPOT Jun 03, 2021 01:30 PM VA-TOBACCO USE MED NO JACKPOT Jun 03, 2021 01:30 PM VA-TOBACCO [place] 30 MIN [place] Jun 03, 2021 01:30 PM VA-TOBACCO USER EVERY DAY JACKPOT Apr 22, 2020 01:00 PM VA-TOBACCO USE 30 YEARS OR MORE JACKP[place] Apr 22, 2020 01:00 PM VA-TOBACCO USE ADVICE [place] Apr 22, 2020 01:00 PM VA-TOBACCO USE STAFF MECHANICAL ENGINEER NO JACKPOT Apr 22, 2020 01:00 PM VA-TOBACCO USE MED NO JACKPOT Apr 22, 2020 01:00 PM VA-TOBACCO USE WI 30 MIN OF [facility] Apr 22, 2020 01:00 PM VA-TOBACCO USER EVERY DAY JACKPOT Feb 21, 2019 12:24 PM VA-TOBACCO USE 30 YEARS OR MORE JACKPOT Feb 21, 2019 12:24 PM VA-TOBACCO USE ADVICE JACKPOT Feb 21, 2019 12:24 PM VA-TOBACCO USE STAFF MECHANICAL ENGINEER NO JACKPOT Feb 21, 2019 12:24 PM VA-TOBACCO USE MED NO JACKPOT Feb 21, 2019 12:24 PM VA-TOBACCO USE [place] 30 MIN OF [place] Feb 21, 2019 12:24 PM VA-TOBACCO USER EVERY DAY JACKP[place] Apr 20, 2012 09:05 AM CURRENT SMOKER pt smokes a half a pack of cigaretts a day. JACKPOT Apr 20, 2012 09:05 AM V1-PT DECLINES REF TO TOBACCO CESS PRGM JACKPOT Apr 20, 2012 09:05 AM V1-PT THINKING ABO UT QUIT TOBACCO USE JACKPOT Encounter Notes: All associated encounter notes This section contains the clinical notes associated to the Encounter. Date/Time Encounter Note(s) Provider Source Apr 29, 2023 12:47 PM PHYSICIAN TELEPHON E ENCOUNTER NOTE: LOCAL TITLE: TELEPHONE NOTE/MD STANDARD TITLE: PHYSICIAN TELEPHONE ENCOUNTER NOTE DATE OF NOTE: APR 29, 2023@12:47 ENTRY DATE: APR 29, 2023@12:47:57 AUTHOR: SHERI LANGLEY EXP COSIGNER: URGENCY: STATUS: COMPLETED Called SAI MALONEYJAK HDZ , a 68 year old WHITE MALE PATIENT PHONE - PHONE NUMBER [CELLULAR] - NONE FOUND APR 29, 2023 12:48 Cig 1/2 ppd (down) No other cncerns; has LDCT for lung CA with outside specialist [facility]'ll be using [facility]. Discussed med; no changes at this time (declines melatonin renewal) He's trying to get off trazodone. Last Labs: Report Released Date/Time: Apr 15, 2023@16:22 Provider: SHERI LANGLEY Specimen: URINE. [place] [id number] Specimen Collection Date: Apr 15, 2023@12:00 Test name Result units Ref. range Site Code mALB/Cr canc mg/G 0 - 29.9 [631] CALCIUM 9.0 mg/dL 8.5 - 10.2 [631] VITAMIN B12 333 pg/mL 200 - 900 [631] TSH 3.60 uIU/mL 0.35 - 5.00 [631] CREATININE, Serum 0.84 mg/dL 0.50 - 1.40 [631] VITAMIN D (25-OH) 24 ng/mL 20 - 50 [631] eGFR(CKD-EPI 2020) >90 mL/min Ref: >=60 [631] SODIUM 140 mmol/L 135 - 145 [631] POTASSIUM 4.2 mmol/L 3.5 - 5.0 [631] CHLORIDE 105 mmol/L 100 - 110 [631] CO2 25 mEq/L 20 - 30 [631] UREA NITROGEN 9 mg/dL 7 - 25 [631] GLUCOSE 88 mg/dL 65 - 100 [631] PROTEIN,TOTAL 7.6 g/dL 6.0 - 8.3 [631] ALBUMIN 4.0 g/dL 3.5 - 5.0 [631] ALKALINE PHOSPHATASE 68 U/L 40 - 150 [631] AST 20 U/L 5 - 34 [631] BILIRUBIN, TOTAL 0.6 mg/dL 0.2 - 1.2 [631] CHOLESTEROL 198 mg/dL <7 - 199 [631] TRIGLYCERIDE 71 mg/dL 0 - 150 [631] LDL calculated 121 mg/dL 0 - 129 [631] CHOL/HDL 3.1 [631] ALT 18 U/L <6 - 55 [631] MAGNESIUM 2.1 mg/dL 1.6 - 2.6 [631] HDL CHOLESTEROL 63 H mg/dL 40 - 60 [631] HEMOGLOBIN A1C 5.0 % 4.0 - 5.6 [631] WBC 8.87 K/cmm 4.50 - 11.00 [631] Neut % 66.9 % 43.7 - 75.8 [631] Lymph % 21.4 % 14.0 - 42.3 [631] [place] % 8.1 % 5.1 - 13.7 [631] Eos % 2.3 % 0.4 - 6.8 [631] Baso % 0.7 % 0.1 - 2.0 [631] Immature Gran % 0.6 % 0.0 - 0.7 [631] Neut, Abs 5.94 K/cmm 2.20 - 7.60 [631] Lymph, Abs 1.90 K/cmm 1.00 - 3.20 [631] [place], Abs 0.72 K/cmm 0.30 - 1.10 [631] Eos, Abs 0.20 K/cmm 0.03 - 0.44 [631] Baso, Abs 0.06 K/cmm 0.01 - 0.13 [631] Immature Gran, Abs 0.05 K/cmm 0.00 - 0.06 [631] RBC 5.25 M/cmm 4.23 - 5.66 [631] HGB 16.1 g/dL 12.8 - 17 [631] HCT 48.1 % 39.2 - 50.4 [631] MCV 91.6 fl 82 - 99 [631] MCH 30.7 pg 26.2 - 32.6 [631] MCHC 33.5 g/dL 30.8 - 35.1 [631] RDW-CV 13.5 % 12.0 - 16.0 [631] PLT 244 K/cmm 140 - 360 [631] Last seen Feb 2023(excerpted and edited): ...ASSESSMENT & PLAN: 68 year old MALE [facility] comanage presents for semiannual [facility] encounter. In [...] May recheck lipids, video appointment for follow-up RTC 6 months with labs. IMPRESSION AND PLAN: Hyperlipidemia on low intensity pravastatin with high HDL; recheck in 6 mos Collection DT Spec CHOL HDL CHO/HDL LDL-c TRIG 04/15/2023 12:00 SERUM 198 63 H 3.1 121 71 09/21/2022 13:15 SERUM 249 H 63 H 4.0 169 H 85 03/05/2022 12:15 SERUM 214 H 58 3.7 144 H 59 05/03/2020 09:45 SERUM 160 55 2.9 94 57 08/29/2019 08:22 SERUM 238 H 50 4.8 176 H 62 Smoker - not ready to quit Mild Vit D def - discussed; declines supplementation; recheck in 6 mos RTC 6 mos for physical Problem List: (reviewed but not necessarily discussed with patient/family on this encounter) Active problems - Computerized Problem List is the source for the followin. Obstructive sleep apnea 06/2020 overall Apnea-Hypopnea Index of 9.5/hr. 2. cannabinoid user 3. Insomnia reviewed 4. Hyperlipidemia ([facility] [id number]) on pravastatin LDL 03/2019 226; 08/2019 176 5. Tobacco use 1 ppd reviewed 6. Chronic venous insufficiency with symptomatic varicosities followed by Dr. Rakan Gasca, Vascular 7. Co-management Dr. Saida Gomez, Latonya Corporama 8. Smokes tobacco daily (SNOMED CT [id number]) Active Meds: Active Outpatient Medications (including Supplies): Active Outpatient Medications Status 1) PRAVASTATIN NA 20MG TAB TAKE ONE TABLET BY MOUTH ONCE ACTIVE DAILY FOR CHOLESTEROL 2) TIOTROPIUM 2.5MCG/ACTUAT 60D ORAL INHL INHALE 2 PUFFS ACTIVE BY MOUTH ONCE DAILY FOR BRONCHOSPASM PREVENTION WITH COPD 3) TRAZODONE HCL 100MG TAB TAKE ONE-HALF TO ONE TABLET ACTIVE BY MOUTH AT BEDTIME NEEDED -FOR SLEEP Upcoming Appointments: 06/22/2023 14:00 CWM/SO/PACT 9 07/22/2023 08:30 NHM/PULMONARY FUNCTION TE 08/16/2023 14:00 CWM/SO/PACT 9 Recent Visits: Past Clinic Visits (Past 3 Months) 04/29/2023 12:30 CWM/SO/VVC/PACT 9 02/18/2023 12:30 CWM/SO/VVC/PACT 9 CANCELLED BY PATIENT 02/15/2023 14:30 CWM/SO/PACT 9 01/11/2023 14:00 CWM/SO/PACT 9 CANCELLED BY PATIENT 01/08/2023 14:00 CWM/SO/PACT 9 CANCELLED BY CLINIC 01/06/2023 14:30 SPOPC/MHC/LARROW CANCELLED BY PATIENT 12/21/2022 14:00 CWM/SO/PACT 9 CANCELLED BY CLINIC 12/17/2022 14:30 NHM/PULMONARY FUNCTION TE CANCELLED BY PATIENT 09/30/2022 14:30 SPOPC/MHC/LARROW 09/21/2022 13:30 CWM/SO/PACT 9 30 minutes spent in patient care and education Today's documentation was made using voice recognition software. This note may contain spelling/grammatical errors secondary to this software. /es/ SHERI LANGLEY MD PHYSICIAN Signed: 04/29/2023 13:14 SHERI LANGLEY JACKPOT
--- OUTSIDE RECORDS SUMMARY | 2024-01-18 14:46 | XMS_ITS | Encounter Summary ---
Author Name [facility] [place] Address [address] [place] [address] Care Team Providers Care Lithographers Printer Name Role Phone SHERI LANGLEY Primary Care [...] PART B Jul 09, 2020 PART B [id number] RC96 [id number] [facility] PATIENT MEDICARE (WNR) MEDICARE (M) PART A Jan 09, 2020 PART A [id number] RC96 SAI MALONEYALD PATIENT Selected Encounter This section includes the information on record at [place] for the Encounter. Date/Time Encounter Type Encounter Description Reason Pro vider Source Jan 21, 2023 12:00 AM Outpatient Encounter EVENT (HISTORICAL) IHE Encounter Template Text not used by [place] Plan of Treatment: Future Appointments (+ 6 [...] 20 appointments. The data comes from all [place] treatment facilities. Appointment Date/Time Appointment Type Appointme nt Facility Name Feb 15, 2023 02:30 PM AM[place]ULAT[place] [facility] Apr 29, 2023 12:30 PM [facility]
--- OUTSIDE RECORDS SUMMARY | 2024-01-18 14:46 | XMS_ITS ---
Author Name [facility] [place] [facility] [place] Address [address] [place] [place] [address] Care Team Providers Care Furniture Restorer Name Role Phone SHERI LANGLEY Primary Care [...] PART B Jul 09, 2020 PART B [id number] [id number] [facility] PATIENT MEDICARE (WNR) MEDICARE (M) PART A Jan 09, 2020 PART A [id number] [id number] [facility] PATIENT Selected Encounter This section includes the information on record at [place] for the Encounter. Date/Time Encounter Type Encounter Description Reason Pro vider Source Nov 05, 2023 11:41 AM Outpatient Encounter COMMUNITY CARE CONSULT IHE Encounter Template Text not used by VA Plan of Treatment: Future Appointments (+ 6 [...] 20 appointments. The data comes from all [facility]. Appointment Date/Time Appointment Type Appointme nt Facility Name Mar 20, 2024 02:00 PM AMBULATORY - MEDICINE [facility] Active, Pending, and Scheduled Orders This section includes a listing of several types of active, pending, and scheduled orders, including clinic medications orders, diagnostic test orders, procedure orders and consult orders; where the start date of the order is 45 days before the date of the Encounter or 45 days after the date of theEncounter. The data comes from all [facility]. Test Date/Time Test Type Test Details Facility Name Sep 21, 2023 12:00 AM Laboratory - Chemi stry Order OCCULT BLOOD FIT X1 SCREEN(IN-HOUSE) STOOL FECES [facility] Oct 30, 2023 12:00 AM Laboratory - Chemi stry Order BASIC METABOLIC PANEL (non-fasting) BLOOD (SST-SERUM) [facility] Oct 30, 2023 12:00 AM Laboratory - Chemi stry Order LIPID PANEL FASTING BLOOD (SST-SERUM) [facility] Oct 30, 2023 12:00 AM Laboratory - Chemi stry Order LIVER FUNCTION BLOOD (SST-SERUM) [facility] Oct 30, 2023 12:00 AM Laboratory - Chemi stry Order VITAMIN D (25-OH) BLOOD (SST-SERUM) [facility] Encounter Notes: All associated encounter notes This section contains the clinical notes associated to the Encounter. Date/Time Encounter Note(s) Provider Source Nov 05, 2023 12:52 PM ADDENDUM: LOCAL TITLE: Addendum STANDARD TITLE: ADDENDUM DATE OF NOTE: NOV 05, 2023@12:52:26 ENTRY DATE: NOV 05, 2023@12:52:26 AUTHOR: KASSY BELLAMY EXP COSIGNER: URGENCY: STATUS: COMPLETED AMSA--Please obtain records. Thanks /valentín/ Kassy Bellamy RN Registered Nurse (RN) Signed: 11/05/2023 12:52 Receipt Acknowledged By: 11/05/2023 12:56 /shekhar GRACE AMSA --- Original Document --- 11/05/23 COMMUNITY CARE-NEELA SELF PRESENTING CARE COORD PLAN NOTE: Emergency Notification Intake Date Presenting to the Facility: Oct Method of Contact: Notified from ECR worklist Notification ID: [id number] HSRM Referral [facility] Hospital Name: Hospital: [facility] Address: City: [facility]: [place] Zip Code: Phone : [facility] Point of Contact: Name: [facility] Phone: Chief complaint: Sob/ chest pain Primary Diagnosis: Disposition Unknown at time of intake note entry /es/ MIKE EARLY Signed: 11/05/2023 11:43 Receipt Acknowledged By: * AWAITING SIGNATURE * BRETT SORIANO * AWAITING SIGNATURE * JOHNNY TODD * AWAITING SIGNATURE * SHERI LANGLEY * AWAITING SIGNATURE * PETE HUNT * AWAITING SIGNATURE * PEG SAAVEDRA 11/05/2023 12:52 /valentín/ Kassy Bellamy, RN Registered Nurse (RN) for NARAYAN CALDWELL 11/05/2023 ADDENDUM STATUS: COMPLETED Transport Tank Technician requested ED summary from [facility]. /es/ ARAVIND EARLY Signed: 11/05/2023 12:56 [facility] Nov 05, 2023 11:41 AM NONVA NOTE: LOCAL TITLE: COMMUNITY CARE-NEELA SELF PRESENTING CARE COORD PLAN STANDARD TITLE: NONVA NOTE DATE OF NOTE: NOV 05, 2023@11:41 ENTRY DATE: NOV 05, 2023@11:41:49 AUTHOR: MIKE LI COSIGNER: URGENCY: STATUS: COMPLETED COMMUNITY CARE-NEELA SELF PRESENTING CARE COORD PLAN NOTE Has ADDENDA Emergency Notification Intake Date Presenting to the Facility: Oct Method of Contact: Notified from [employer] worklist Notification ID: [id number] HSRM Referral #: [facility] Hospital Name: Hospital: [facility] Address: City: [facility]: [place] Zip Code: Phone : [facility] Point of Contact: Name: [facility] Phone: Chief complaint: Sob/ chest pain Primary Diagnosis: Disposition Unknown at time of intake note entry /valentín/ MIKE LI AMSA Signed: 11/05/2023 11:43 Receipt Acknowledged By: * AWAITING SIGNATURE * BRETT SORIANO * AWAITING SIGNATURE * JOHNNY TODD * AWAITING SIGNATURE * SHERI LANGLEY * AWAITING SIGNATURE * PETE HUNT * AWAITING SIGNATURE * PEG SAAVEDRA 11/05/2023 12:52 /valentín/ Kassy Bellamy RN Registered Nurse (RN) for NARAYAN CALDWELL 11/05/2023 ADDENDUM STATUS: COMPLETED AMSA--Please obtain records. Thanks /valentín/ Kassy Bellamy RN Registered Nurse (RN) Signed: 11/05/2023 12:52 Receipt Acknowledged By: 11/05/2023 12:56 /valentín/ ARAVIND EARLY 11/05/2023 ADDENDUM STATUS: COMPLETED Transport Tank Technician requested ED summary from [facility]. /valentín/ ARAVIND GRACE AMSA Signed: 11/05/2023 12:56 MIKE LI KITTRELL
--- OUTSIDE RECORDS SUMMARY | 2024-01-18 14:46 | XMS_ITS | Encounter Summary ---
Author Name [facility] [place] Organization [place] Address [address] [place] [address] Care Team Providers Care Measurement Psychologist Name Role Phone SHERI LANGLEY Primary Care [...] PART B Jul 09, 2020 PART B [id number] CHI MALONEY PATIENT MEDICARE (WNR) MEDICARE (M) PART A Jan 09, 2020 PART A [id number] [id number] CHI MALONEY PATIENT Selected Encounter This section includes the information on record at [place] for the Encounter. Date/Time Encounter Type Encounter Description Reason Pro vider Source Jan 21, 2023 11:48 AM Outpatient Encounter PRIMARY CARE/MEDICINE IHE Encounter Template Text not used by [place] Plan of Treatment: Future Appointments (+ 6 [...] 15, 2023 02:30 PM AMBULATORY - MEDICINE [place] C NTRL [facility] Apr 29, 2023 12:30 PM AMBULATORY - MEDICINE [facility] Encounter Notes: All associated encounter notes This section contains the clinical notes associated to the Encounter. Date/Time Encounter Note(s) Provider Source Jan 21, 2023 11:48 AM PREVENTIVE MEDICIN E NURSING NOTE: LOCAL TITLE: CLINICAL REMINDERS/NURSING STANDARD TITLE: PREVENTIVE MEDICINE NURSING NOTE DATE OF NOTE: JAN 21, 2023@11:48 ENTRY DATE: JAN 21, 2023@11:48:08 AUTHOR: JADIEL LARSEN EXP COSIGNER: URGENCY: STATUS: COMPLETED Avg Risk Colorectal Cancer Screen: AVERAGE RISK colorectal cancer screening is due based on information available to this clinical reminder FOBT/FIT (Fecal Immunochemical Testing) has been ordered. See order tab for details. CALLED BY THIS DIRECTOR HR COMMUNICATIONS TO F/U ON FIT TEST ORDERED STATED HE MAY HAVE LOST IT OR THROWED IT AWAY. ORDERS UPDATED AND FIT TEST X2 MAILED TO THE /valentín/ JADIEL LARSEN LPN LPN Signed: 01/21/2023 12:00 JADIEL LARSEN [place]
--- OUTSIDE RECORDS SUMMARY | 2024-01-18 14:46 | XMS_ITS | Encounter Summary ---
Author Name Department [place] Organization [facility] [place] Address [address] [place] [address] Care Team Providers Care Chick Grader Name Role Phone SHERI LANGLEY Primary Care [...] PART B Jul 09, 2020 PART B [id number] CHI MALONEY PATIENT MEDICARE (WNR) MEDICARE (M) PART A Jan 09, 2020 PART A [id number] [id number] LINHCANDACESAI HO[place]ALD PATIENT Selected Encounter This section includes the information on record at [place] for the Encounter. Date/Time Encounter Type Encounter Description Reason Pro vider Source June 16, 2023 12:00 AM Outpatient Encounter EVENT (HISTORICAL) IHE Encounter Template Text not used by [place] Plan of Treatment: Future Appointments (+ 6 [...] 20 appointments. The data comes from all [place] treatment facilities. Appointment Date/Time Appointment Type Appointme nt Facility Name Sep 09, 2023 02:30 PM AMBULATORY - MEDICINE [facility] Sep 21, 2023 02:00 PM AMBULATORY - MEDICINE [facility] Encounter Notes: All associated encounter notes This section contains the clinical notes associated to the Encounter. Date/Time Encounter Note(s) Provider Source June 16, 2023 12:00 AM NONVA NOTE: LOCAL TITLE: NON-VA OUTPATIENT NOTES STANDARD TITLE: NONVA NOTE DATE OF NOTE: JUNE 16, 2023 ENTRY DATE: JUNE 22, 2023@14:13:14 AUTHOR: FLORES EMANUEL EXP COSIGNER: URGENCY: STATUS: COMPLETED VistA Imaging - Scanned Document SCANNED DOCUMENT SIGNATURE NOT REQUIRED Electronically Filed: 06/22/2023 by: FLORES EMANUEL NET MENDER FLORES EMANUEL [facility]
--- OUTSIDE RECORDS SUMMARY | 2024-01-18 14:46 | XMS_ITS | Encounter Summary ---
Author Name [facility] [place] Address [address] [place] [address] Care Team Providers Care Relocation Commissioner Name Role Phone SHERI LANGLEY Primary Care [...] PART B Jul 09, 2020 PART B [id number] CHI MALONEY PATIENT MEDICARE (WNR) MEDICARE (M) PART A Jan 09, 2020 PART A [id number] RC96 CHI MALONEY PATIENT Selected Encounter This section includes the information on record at [place] for the Encounter. Date/Time Encounter Type Encounter Description Reason Pro vider Source June 15, 2023 11:25 AM Outpatient Encounter PRIMARY CARE/MEDICINE IHE Encounter Template Text not used by [place] Plan of Treatment: Future Appointments (+ 6 [...] 20 appointments. The data comes from all [place] treatment facilities. Appointment Date/Time Appointment Type Appointme nt Facility Name Sep 09, 2023 02:30 PM AMBULATORY - MEDICINE [place] [facility] Sep 21, 2023 02:00 PM AMBULATORY - MEDICINE [facility] Encounter Notes: All associated encounter notes This section contains the clinical notes associated to the Encounter. Date/Time Encounter Note(s) Provider Source June 15, 2023 11:25 AM MEDICATION MGT NOT E: LOCAL TITLE: OUTPATIENT MEDICATION REQUEST STANDARD TITLE: MEDICATION MGT NOTE DATE OF NOTE: JUNE 15, 2023@11:25 ENTRY DATE: JUNE 15, 2023@11:25:19 AUTHOR: NARAYAN CALDWELL EXP COSIGNER: URGENCY: STATUS: COMPLETED Mail PRAVASTATIN TAB 20MG TAKE ONE TABLET BY MOUTH ONCE DAILY FOR CHOLESTEROL Collection DT Spec LDL-c HDL TRIG TSH B12 SR- VIT D25 04/15/2023 12:00 SERUM 121 63 H 71 3.60 333 24 09/21/2022 13:15 SERUM 169 H 63 H 85 3.53 03/05/2022 12:15 SERUM 144 H 58 59 3.64 25 05/03/2020 09:45 SERUM 94 55 57 4.00 25 08/29/2019 08:22 SERUM 176 H 50 62 /valentín/ MAURA WOODS,RN-BC REGISTERED NURSE (RN) Signed: 06/15/2023 11:25 Receipt Acknowledged By: 06/17/2023 16:07 /es/ SHERI LANGLEY MD PHYSICIAN [place]AN [place]
--- OUTSIDE RECORDS SUMMARY | 2024-01-18 14:46 | XMS_ITS ---
Author Name [facility] [place] Organization [place] Address [address] [place] [address] Care Team Providers Care Land Commissioner Name Role Phone SHERI LANGLEY Primary [...] PART B Jul 09, 2020 PART B [id number] CHI MALONEY PATIENT MEDICARE (WNR) MEDICARE (M) PART A Jan 09, 2020 PART A [id number] [id number] CHI MALONEY PATIENT Selected Encounter This section includes the information on record at [place] for the Encounter. Date/Time Encounter Type Encounter Description Reason Pro vider Source June 15, 2023 10:57 AM Outpatient Encounter PRIMARY CARE/MEDICINE IHE Encounter Template Text not used by [place] Plan of Treatment: Future Appointments (+ 6 [...] 20 appointments. The data comes from all [place] treatment facilities. Appointment Date/Time Appointment Type Appointme nt Facility Name Sep 09, 2023 02:30 PM AMBULATORY - MEDICINE [place] [facility] Sep 21, 2023 02:00 PM AMBULATORY - MEDICINE [facility] Encounter Notes: All associated encounter notes This section contains the clinical notes associated to the Encounter. Date/Time Encounter Note(s) Provider Source June 15, 2023 10:57 AM PRIMARY CARE NOTE: LOCAL TITLE: WALK-IN NOTE PRIMARY CARE (T) STANDARD TITLE: PRIMARY CARE NOTE DATE OF NOTE: JUNE 15, 2023@10:57 ENTRY DATE: JUNE 15, 2023@10:57:52 AUTHOR: ARAVIND GRACE EXP COSIGNER: URGENCY: STATUS: COMPLETED <====Click to Start Advanced Medical Support presents to the Primary Care clinic with the following request: [ X ]Medication Renewal/RefillPRAVASTATIN TAB 20MG [ ]Consultation with Team RN [ ]Symptoms [ ]Other The [place] states they are: [ ]Waiting [ ]Not Waiting No Walk in visit scheduled with PACT Nurse [ X ] At this encounter the 's demographics were verified. [ X ] At this encounter the 's Insurance information was verified. [ X ] At this encounter the below scheduled visits for the [place] were discussed and appointment reminder card was offered. Future appointments: 06/22/2023 14:00 CWM/SO/PACT 9 08/16/2023 14:00 CWM/SO/PACT 9 09/09/2023 14:30 NHM/PULMONARY FUNCTION TE 10/29/2023 14:15 SPOPC/EKG 10/29/2023 14:30 CWM/SO/PACT 9 [place] requesting medication refill on the following: PRAVASTATIN TAB 20MG /es/ ARAVIND EARLY Signed: 06/15/2023 10:58 Receipt Acknowledged By: 06/17/2023 11:15 /es/ JADIEL LARSEN LPN LPN 06/15/2023 11:24 /es/ MAURA WOODS,RN-BC REGISTERED NURSE (RN) ARAVIND GRACE
--- OUTSIDE RECORDS SUMMARY | 2024-01-18 14:47 | XMS_ITS ---
Author Name [facility] [place] Organization [place] Address [address] [place] [address] Care Team Providers Care Air Technician Name Role Phone SHERI LANGLEY Primary Care [...] PART B Jul 09, 2020 PART B [id number] CHI MALONEY PATIENT MEDICARE (WNR) MEDICARE (M) PART A Jan 09, 2020 PART A [id number] [id number] CHI MALONEY PATIENT Selected Encounter This section includes the information on record at [place] for the Encounter. Date/Time Encounter Type Encounter Description Reason Pro vider Source Dec 31, 2023 08:21 AM Outpatient Encounter TELEPHONE TRIAGE IHE Encounter Template Text not used by [...] 20, 2024 02:00 PM AMBULATORY - MEDICINE [place] C NTRL [place] [facility] Encounter Notes: All associated encounter notes This section contains the clinical notes associated to the Encounter. Date/Time Encounter Note(s) Provider Source Dec 31, 2023 08:21 AM RN PROGRESS NOTE: LOCAL TITLE: CCC: CLINICAL TRIAGE STANDARD TITLE: RN PROGRESS NOTE DATE OF NOTE: DEC 31, 2023@08:21:22 ENTRY DATE: DEC 31, 2023@08:21:23 AUTHOR: VERNON MCDONOUGH COSIGNER: URGENCY: STATUS: COMPLETED CCC: CLINICAL TRIAGE Has ADDENDA Patient Demographics Patient Name: CHI MALONEY Patient Primary Address: [address] [place] [address] Patient Primary Phone: [phone] Patient : 1955 Patient Age: 68 Caller/Recipient Relation to Patient: Self Caller Name: CHI MALONEY Emergency Contact: JUAN MONTOYA Triage Summary Conducted triage/discussed symptoms Pain Score: 0 (No Pain) Utilized the Triage Tool: Yes Chief Complaint: Difficulty Breathing (wheezing) System WHEN: Now Nurse's Recommendation / WHEN: Now System WHERE: Emergency department Nurse's Recommendation / WHERE: ED Other WHEN/WHERE modifier reason: Distance from Hospital COVID Screening Patient confirms the following symptoms Cough Shortness of breath POSITIVE symptom/s or exposure Patient Disposition Patient/Caregiver agrees to plan of care: Yes Patient WHERE: Refused Nursing Plan and Disposition Other course(s) of action Generated msg to PACT/Provider Provided guidance for worsening symptoms: *Caller/Patient* advised to call facilities [place] Clinical Contact Center or seek immediate medical attention for new or worsening symptoms Nurse Summary Nurse Summary: Vet called, requesting to speak with his PCP to discuss status of getting his Non-[place] meds filled at the [place] pharmacy C/o worsening difficulty breathing X3 mths especially when laying down at night Reports poor sleep and feels like he has phlegm in his throat His rescue inhaler and neb tx helps per Vet but using inhaler more than prescribed and running low Hx of COPD with flare ups per Vet Reports prescribed TIOTROPIUM 2.5MCG/ACTUAT 60D ORAL INHL not effective States he went to [facility] 5 weeks ago for same and saw his non-VA Media Clerk who prescribed Cetirizine and Budesonide-formoterol 160-4.5 mcg/actuation hfa aersol inhaler but can't afford to pay for it and still waiting to see if meds will be dispensed through the [place] pharmacy Vet declined to go to ER again for further eval, stating all I want is to speak with my PCP about my meds, I know when to get emergency care Discussed potential serious sequelae for delaying care, Vet verbalized understanding Will forward note to PACT for f/u per Vet's request Clinical Contact Center Codes Clinic/Location: V1 CWM PHONE CCC RN Decision Support System Output: Triage Complete Triage Date: 12/31/2023, 08:03 AM Triage Note: Decision Support Tool Used: TXCC Phone Triage 31 Dec 2023 12:56:56 +0000 [facility] Demographics 68 y/o Male Results CC: Difficulty Breathing (wheezing) Software suggested: Now Software suggested follow-up location: Emergency department Values and Measures Duration of CC: 3 Months Positive Responses HPI: dyspnea, severe HPI: wheezing, within past hour PMH: COPD VS: respiratory rate not taken Negative Responses Denies: HPI: blue discoloration, lips or nail beds Denies: HPI: difficulty speaking, sudden onset Denies: HPI: dysphagia, sudden onset Denies: HPI: dyspnea, struggling to breathe Denies: HPI: mental status change, confusion Denies: HPI: mental status change, lethargy Denies: HPI: swelling in face or mouth or tongue Denies: PMH: asthma Education Verbal Education Provided: Based on your responses, you should be treated in the emergency room. Take action: You need to see a provider now or your condition could worsen. Consider calling an ambulance. Sit in an upright position so that breathing is easier. Try to remain calm. IMPORTANT: This note was created by [facility] Clinical Contact Center staff. Please do not alert the staff member by adding them as a signer for future communications. Alerts are not monitored by this user. 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 [place] states he seen his pulmonology provider yesterday and his concerns addressed. /valentín/ MAURA WOODS,RN-BC REGISTERED NURSE (RN) Signed: 12/31/2023 16:11 [facility] [place] [facility]
--- OUTSIDE RECORDS SUMMARY | 2024-01-18 14:47 | XMS_ITS ---
Author Name [facility] [place] Organization [facility] Address [address] [place] [address] Care Team Providers Care Brick And Tile Making Machine Operator Name Role Phone SHERI LANGLEY Primary [...] PART B Jul 09, 2020 PART B [id number] AMARA CHI PATIENT MEDICARE (WNR) MEDICARE (M) PART A Jan 09, 2020 PART A [id number] [id number] CHI MALONEY PATIENT Selected Encounter This section includes the information on record at [place] for the Encounter. Date/Time Encounter Type Encounter Description Reason Pro vider Source Dec 29, 2023 09:58 AM Outpatient Encounter ADMIN PAT ACTIVTIES (MASNONCT) IHE Encounter Template Text not used by [place] Plan of Treatment: Future Appointments (+ 6 [...] 20 appointments. The data comes from all [place] treatment facilities. Appointment Date/Time Appointment Type Appointme nt Facility Name Mar 20, 2024 02:00 PM AMBULATORY - MEDICINE [facility] Encounter Notes: All associated encounter notes This section contains the clinical notes associated to the Encounter. Date/Time Encounter Note(s) Provider Source Dec 29, 2023 09:58 AM ADMINISTRATIVE NOTE: LOCAL TITLE: CCC: SCHEDULING ADMINISTRATION STANDARD TITLE: ADMINISTRATIVE NOTE DATE OF NOTE: DEC 29, 2023@09:58:14 ENTRY DATE: DEC 29, 2023@09:58:14 AUTHOR: PEG RUDOLPH EXP COSIGNER: URGENCY: STATUS: COMPLETED CCC: SCHEDULING ADMINISTRATION Has ADDENDA Patient Demographics Patient Name: CHI MALONEY Patient Primary Phone: [phone] Patient Primary [address]: [address] [place] [address] Patient : 1955 Patient Age: 68 Caller/Recipient Relation to Patient: Self Caller Name: CHI MALONEY Administrative Administrative Note Reason: Other Administrative Note Comments: [place] stated he has copd and would like to now receive an inhaler he spoke with an outside ice delivery driver, please call him to assist. He thought there was a fax sent over yesterday regarding this script. [phone] IMPORTANT: This note was created by [facility] Clinical Contact Center staff. Please do not alert the staff member by adding them as a signer for future communications. Alerts are not monitored by this user. /es/ PEG RUDOLPH VISN1 [facility] A[facility] Signed: 12/29/2023 09:58 Receipt Acknowledged By: 12/29/2023 15:03 /es/ JADIEL LARSEN LPN LPN 12/29/2023 10:58 /es/ MAURA WOODS,RN-BC REGISTERED NURSE (RN) 12/29/2023 ADDENDUM STATUS: COMPLETED Called and informed him we have not received his prescription yet. Chairlift Operator provided with the clinic fax number to provide to his ice delivery driver. Chairlift Operator also requested a MEANS test to be mailed to his home. Chairlift Operator reached out to the enrollment department and forward veterans message. /valentín/ MAURA WOODS,RN-BC REGISTERED NURSE (RN) Signed: 12/29/2023 11:02 PEG RUDOLPH [place] CNTRL [facility]
--- OUTSIDE RECORDS SUMMARY | 2024-01-18 14:47 | XMS_ITS | Encounter Summary ---
Author Name [place] Organization [place] Address [address] [place] [address] Care Team Providers Care Floor Attendant Name Role Phone SHERI LANGLEY Primary Care [...] PART B Jul 09, 2020 PART B [id number] CHI MALONEY PATIENT MEDICARE (WNR) MEDICARE (M) PART A Jan 09, 2020 PART A [id number] [id number] CHI MALONEY PATIENT Selected Encounter This section includes the information on record at [place] for the Encounter. Date/Time Encounter Type Encounter Description Reason Pro vider Source Dec 29, 2023 06:30 PM Outpatient Encounter PRIMARY CARE/MEDICINE IHE Encounter Template Text not used by [place] Plan of Treatment: Future Appointments (+ 6 [...] 20 appointments. The data comes from all [place] treatment facilities. Appointment Date/Time Appointment Type Appointme nt Facility Name Mar 20, 2024 02:00 PM AMBULATORY - MEDICINE [place] C [facility]TRL [facility] Encounter Notes: All associated encounter notes This section contains the clinical notes associated to the Encounter. Date/Time Encounter Note(s) Provider Source Dec 29, 2023 06:30 PM MEDICATION MGT NOT E: LOCAL TITLE: OUTPATIENT MEDICATION REQUEST STANDARD TITLE: MEDICATION MGT NOTE DATE OF NOTE: DEC 29, 2023@18:30 ENTRY DATE: DEC 29, 2023@18:30:57 AUTHOR: NARAYAN CALDWELL EXP COSIGNER: URGENCY: STATUS: COMPLETED PHARMACY STAPLER MACHINE [facility] Pulmonology Services [phone] F# [phone] Kim Brown NP NPI#: [id number] Oredr Date: 12/28/23 Cetirizine (Zyrtec) 10 mg tablet 10 mg PO daily as needed allergy symptoms Qty: 90 tab REFILL 3 Budesonide-formoterol 160-4.5 mcg/actuation hfa aersol inhaler 2 puff inhalation q12h #3 each 3 QTY 3 REFILL 3 /es/ MAURA WOODS,RN-BC REGISTERED NURSE (RN) Signed: 12/29/2023 18:45 Receipt Acknowledged By: * AWAITING SIGNATURE * SHERI LANGLEY [facility]
--- OUTSIDE RECORDS SUMMARY | 2024-01-18 14:47 | XMS_ITS | Encounter Summary ---
Author Name [place] Organization [place] Address [address] [place] [address] Care Team Providers Care Water Supply Technician Name Role Phone SHERI LANGLEY Primary [...] PART B Jul 09, 2020 PART B [id number] CHI MALONEY PATIENT MEDICARE (WNR) MEDICARE (M) PART A Jan 09, 2020 PART A [id number] CHI MALONEY PATIENT Selected Encounter This section includes the information on record at [place] for the Encounter. Date/Time Encounter Type Encounter Description Reason Pro vider Source Dec 29, 2023 11:03 AM Outpatient Encounter PRIMARY CARE/MEDICINE IHE Encounter [...] 20 appointments. The data comes from all [place] treatment facilities. Appointment Date/Time Appointment Type Appointme nt Facility Name Mar 20, 2024 02:00 PM AMBULATORY - [place]ICINE [place] [facility] Encounter Notes: All associated encounter notes This section contains the clinical notes associated to the Encounter. Date/Time Encounter Note(s) Provider Source Dec 29, 2023 11:03 AM MEDICATION MGT NOT E: LOCAL TITLE: OUTPATIENT MEDICATION REQUEST STANDARD TITLE: MEDICATION MGT NOTE DATE OF NOTE: DEC 29, 2023@11:03 ENTRY DATE: DEC 29, 2023@11:03:16 AUTHOR: NARAYAN CALDWELL EXP COSIGNER: URGENCY: STATUS: COMPLETED MAIL TIOTROPIUM 2.5MCG/ACTUAT 60D ORAL INHL OUT RX 02/15/2023 05/16/2023 02/15/2023 SHERI LANGLEY Sig: INHALE 2 PUFFS BY MOUTH ONCE DAILY FOR BRONCHOSPASM PREVENTION WITH ... [+] /valentín/ MAURA WOODS,RN-BC REGISTERED NURSE (RN) Signed: 12/29/2023 11:04 NARAYAN CALDWELL [place]
== END 2024-01-11 14:31 | disposition home or self-care (01) ==
PROVIDERS: PCP Internal Medicine; Visit Provider Nurse Practitioner Family
DX: J44.1 Chronic obstructive pulmonary disease with (acute) exacerbation (principal); F17.210 Nicotine dependence, cigarettes, uncomplicated
CPT/HCPCS: 99214

== ENCOUNTER → 2024-01-11 13:54 | Outpatient (BNVA) | payer OTHER, SELFPAY | PROVIDERS: PCP Internal Medicine; Visit Provider Nurse Practitioner Family ==

== ENCOUNTER 2024-08-08 13:40 | Outpatient (AMB) | payer OTHER, SELFPAY ==
--- OUTSIDE RECORDS SUMMARY | 2024-03-20 10:00 | XMS_ITS | Encounter Summary ---
Author Name [facility] [place] Organization [facility] [place] Address [address] [place] [id number] Care Team Providers Care Account Management Specialist Name Role Phone TUAN BACH Primary Care Provider Unavailabl e Insurance Providers: All historical and current Section [...] PART B Jul 09, 2020 PART B [id number] [facility] [id number] [facility] PATIENT MEDICARE (WNR) MEDICARE (M) PART B Jul 09, 2020 PART B [id number] [facility] PATIENT MEDICARE (WNR) MEDICARE (M) PART A Jan 09, 2020 PART A [id number] [facility] PATIENT MEDICARE (WNR) MEDICARE (M) PART A Jan 09, 2020 PART A [id number] [facility] PATIENT Selected Encounter This section includes the information on record at CT for the Encounter. Date/Time Encounter Type Encounter Description Reason Provider Source Mar 20, 2024 02:00 PM OFFICE O/P EST MOD 30 MIN PRIMARY CARE/MEDICINE ICD-10-CM J44.9 Chronic obstructive pulmonary disease, unspecified ISREALTUAN Simmons [facility] Encounter Template Text not used by CT Assessments - Encounter Diagnoses This section includes the primary and secondary diagnoses documented for the Encounter. Date/Time Primary/Secondary Diagnosis Diagnosis Name Provider Source May 14, 2024 12:09 PM PRIMARY Chronic obstructive pulmonary disease, unspecified TUAN BACH May 14, 2024 12:09 PM SECONDARY Hyperlipidemia, unspecified TUAN BACH TRAN Plan of Treatment: Future Appointments (+ 6 months) and Future Tests (+/- 45 days) The Plan of Treatment section includes future care activities for the patient from all CT treatmentfacilities. This section includes future appointments and future orders which are active, pending or scheduled. Active, Pending, and Scheduled Orders This section includes a listing of several types of active, pending, and scheduled orders, including clinic medications orders, diagnostic test orders, procedure orders and consult orders; where the start date of the order is 45 days before the date of the Encounter or 45 days after the date of theEncounter. The data comes from all CT treatment facilities. Test Date/Time Test Type Test Details Facility Name Feb 23, 2024 12:00 AM Laboratory - Chemi stry Order OCCULT BLOOD FIT X1 SCREEN (MFP ONLY) STOOL FECES SP CT [facility] Social History: Smoking Status (Most current) and Tobacco Use (All prior to encounter date) This section includes the most current, and the historical, smoking and tobacco- related health factors from the CT facility where the Encounter took place. Current Smoking Status This section includes the most current smoking, or tobacco-related health factor, from the CT facility where the Encounter took place. Date/Time Current Smoking Status Comment Viky ity Sep 21, 2023 02:00 PM VA-TOBACCO USER EVERY DAY [facility] Tobacco Use History This section includes a history of the smoking, or tobacco-related health factors, that were collected on or before the date of the Encounter. The data comes from the CT facility where the Encounter took place. 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 [facility] June 22, 2022 02:30 PM VA-TOBACCO USE MED NO [facility] June 22, 2022 02:30 PM VA-TOBACCO USE WI 30 MIN OF WAKEUP [facility] June 22, 2022 02:30 PM VA-TOBACCO USER EVERY DAY [facility] Jun 03, 2021 01:30 PM VA-TOBACCO USE 30 YEARS OR MORE [facility] Jun 03, 2021 01:30 PM VA-TOBACCO USE ADVICE [facility] Jun 03, 2021 01:30 PM 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 [facility] Jun 03, 2021 01:30 PM VA-TOBACCO USE MED NO [facility] Jun 03, 2021 01:30 PM VA-TOBACCO USE WI 30 MIN OF [facility] Jun 03, 2021 01:30 PM VA-TOBACCO USER EVERY DAY [facility] [place] Apr 22, 2020 01:00 PM VA-TOBACCO USE 30 YEARS OR MORE [facility] Apr 22, 2020 01:00 PM VA-TOBACCO USE ADVICE [facility] Apr 22, 2020 01:00 PM 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 [facility] Apr 22, 2020 01:00 PM VA-TOBACCO USE MED [facility] Apr 22, 2020 01:00 PM VA-TOBACCO USE WI 30 MIN OF [facility] Apr 22, 2020 01:00 PM VA-TOBACCO USER EVERY DAY [facility] [place] Feb 21, 2019 12:24 PM VA-TOBACCO USE 30 YEARS OR MORE [facility] Feb 21, 2019 12:24 PM VA-TOBACCO USE ADVICE [facility] Feb 21, 2019 12:24 PM 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 [facility] Apr 20, 2012 09:05 AM V1-PT DECLINES REF TO TOBACCO CESS PRGM [facility] Apr 20, 2012 09:05 AM V1-PT THINKING ABO UT QUIT TOBACCO USE [facility] Encounter Notes: All associated encounter notes This section contains the clinical notes associated to the Encounter. Date/Time Encounter Note(s) Provider Source Mar 20, 2024 09:10 AM PHYSICIAN NOTE: LOCAL TITLE: MD NOTE STANDARD TITLE: PHYSICIAN NOTE DATE OF NOTE: MAR 20, 2024@09:10 ENTRY DATE: MAR 20, 2024@09:10:20 AUTHOR: TUAN BACH EXP COSIGNER: URGENCY: STATUS: COMPLETED Primary Care Progress Note CC: is here to follow up the medical problems listed below HPI: he is feeling and doing well, better since quitting tobacco in 10/2023. He is seeing pulmonary in the community. 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 Obstructive sleep apnea 06/2020 overall Apnea-Hypopnea Index of 9.5/hr. 2. cannabinoid user 3. Insomnia reviewed 4. Hyperlipidemia ([facility] [id number]) on pravastatin LDL 03/2019 226; 08/2019 176 5. Tobacco use 1 ppd reviewed 6. Chronic venous insufficiency with symptomatic varicosities followed by Dr. Rakan Gasca, Vascular 7. Co-management Dr. Saida Gomez, [facility] 8. Smokes tobacco daily (SNOMED CT [id number]) Meds:Active Outpatient Medications (including Supplies): CETIRIZINE HCL 10MG TAB TAKE ONE TABLET BY MOUTH ONCE ACTIVE DAILY Indication: FOR ALLERGIES FLUTICAS 500/SALMETEROL 50 INHL DISK 60 INHALE 1 PUFF BY ACTIVE MOUTH TWICE DAILY - RINSE MOUTH AFTER USE INSTEAD OF BRETZI Indication: FOR BRONCHOSPASM PREVENTION WITH COPD PRAVASTATIN NA 20MG TAB TAKE ONE TABLET BY MOUTH ONCE ACTIVE DAILY FOR CHOLESTEROL TIOTROPIUM 2.5MCG/ACTUAT 60D ORAL INHL INHALE 2 PUFFS BY ACTIVE MOUTH ONCE DAILY Indication: FOR BRONCHOSPASM PREVENTION WITH COPD No Active Remote Medications for this patient All:Patient has answered NKA PEx: Wt: 196.4 lb [89.09 kg] (09/21/2023 14:); Ht: 69 in [175.3 cm] (09/21/2023:) Blood Pressure: 128/78 (03/20/2024 14:12) Pain: 0 (09/21/2023) Patient Height: 69 in [175.3 cm] (09/21/2023) Patient Weight: 224.7 lb [101.92 kg] (03/20/2024 14:12) Pulse: 88 (03/20/2024 14:12) Respiration: 20 (09/21/2023:) Temperature: 98.9 F [37.2 C] (03/20/2024 14:12) [place] is pleasant and appropriate; gait is normal; HEENT: PERRL, EOMI, mucous membranes are moist; neck is without nodes, bruits or JVD; lungs are CTA bilaterally, + occasional wheezes in the left base cleared with deep breathing, rales or rhonchi; heart is with rrr, no m,r,g. abd-soft and nontender; extrems are without cce; neuro--a&ox3 and coop, nonfocal; He has large diffuse varicose veins bilateral lower extremities Data: All available test results were reviewed with the SERUM Apr 14 Reference 2023 12:00 Units Ranges ------- B12 333 pg/mL 200 - 900 SERUM Aug Apr 14 Reference 2023 2023 13:54 12:00 Units Ranges ------- GLUCOSE 80 88 mg/dL 65 - 100 BUN 8 9 mg/dL 7 - 25 CREATININE 0.85 0.84 mg/dL .5 - 1.4 eGFR(IDMS) Ref: >=60 CREAT mg/dL .5 - 1.5 eGFR See Eval Ref: See Eval Sodium 138 140 mmol/L 135 - 145 K+/Pot 4.2 4.2 mmol/L 3.5 - 5 CL 104 105 mmol/L 100 - 110 CO2 23 25 mEq/L 20 - 30 CA 9.0 mg/dL 8.5 - 10.2 UricAci mg/dL 3.5 - 7.2 NH3/Amm PO4 mg/dL 2.5 - 5 T. PROT 7.5 7.6 g/dL 6 - 8.3 ALBUMIN 4.2 4.0 g/dL 3.5 - 5 T BILI 0.6 0.6 mg/dL .2 - 1.2 D. BILI mg/dL 0 - .5 AST 21 20 U/L 5 - 34 ALT 21 18 U/L <6 - 55 GGT U/L 10 - 65 ALK JESSICA 69 68 U/L 40 - 150 AMYLASE U/L 25 - 125 MAG 2.1 mg/dL 1.6 - 2.6 ACETONE Ref: Neg T3 Total ng/dL 35 - 193 Comments: a b SERUM Sep 20 Apr 14 Reference 2023 2023 13:54 12:00 Units Ranges ------- CHOL 201 H 198 mg/dL <7 - 199 TRIG 69 71 mg/dL 0 - 150 HDL 58 63 H mg/dL 40 - 60 LDL-d mg/dL <10 - 120 LDL 129 121 mg/dL 0 - 129 CHO/HDL 3.5 3.1 BLOOD Apr 14 Reference 2023 12:00 Units Ranges ------- HgbA1c Hgb-A1c % 4.4 - 6.1 Hgb-A1c % 3 - 6.1 HGB A1C % 4.4 - 6.4 Hgb-A1C % 3.4 - 6.1 HGB-A1c 5.0 % 4 - 5.6 SERUM Apr 14 Reference 2023 12:00 Units Ranges ------- T-U % 32 - 48 T4 ug/dL 4.5 - 12 TSH 3.60 uIU/mL .35 - 5 FTI ug/dL 6.3 - 12.4 T3FR pg/mL ANGELA AB IU/mL 0 - 2 TSIG % baseline BLOOD Apr 14 Reference 2023 12:00 Units Ranges ------- WBC 8.87 K/cmm 4.5 - 11 RBC 5.25 M/cmm 4.23 - 5.66 HGB 16.1 g/dL 12.8 - 17 HCT 48.1 % 39.2 - 50.4 MCV 91.6 fl 82 - 99 MCH 30.7 pg 26.2 - 32.6 MCHC 33.5 g/dL 30.8 - 35.1 RDW 13.5 % 12 - 16 PLT 244 K/cmm 140 - 360 Neut% 66.9 % 43.7 - 75.8 Lymph% 21.4 % 14 - 42.3 Beadle% 8.1 % 5.1 - 13.7 Eos% 2.3 % .4 - 6.8 Baso% 0.7 % .1 - 2 IG% 0.6 % 0 - .7 NeutAbs 5.94 K/cmm 2.2 - 7.6 LymAbs 1.90 K/cmm 1 - 3.2 MonoAbs 0.72 K/cmm .3 - 1.1 EosAbs 0.20 K/cmm .03 - .44 BasoAbs 0.06 K/cmm .01 - .13 IG,Abs 0.05 K/cmm 0 - .06 DATE TIME SPECIMEN TEST VALUE Ref ranges ------- Sep 21, 2023@13:54 SERUM VITAMIN D (25-OH): 26 ng/mL 20 - 50 Sep 21, 2023@13:54 SERUM eGFR(CKD-EPI 2020): >90 mL/min Ref: >=60 Apr 15, 2023@12:00 URINE mALB/Cr: canc mg/G 0 - 29.9 Apr 15, 2023@12:00 URINE MICROALBUMIN,QUANTITATIVE:< 0.5 mg/dL Ref: RR UNAVAIL Apr 15, 2023@12:00 URINE CREATININE URINE: 51.63 mg/dL Apr 15, 2023@12:00 SERUM VITAMIN D (25-OH): 24 ng/mL 20 - 50 Apr 15, 2023@12:00 SERUM eGFR(CKD-EPI 2020): >90 mL/min Ref: >=60 SERUM [place] May 03 Reference 2022 2020 12:15 09:45 Units Ranges ------- PSA 0.99 0.77 ng/mL 0 - 4 A/P: All instructions were explained for the , who expressed understanding and agreement. 1. Hx Tobacco abuse and COPD--continue meds; he has stopped cigarettes, and is seeing pulmonary. He states he will undergo lung cancer screening in that office. 2. Hyperlipidemia-- No known CAD, but he is at risk with hx tobacco abuse. Recommend more intensive therapy to get LDL closer to 100 or less. [place] is not interested in a change in his meds at this time. 3. HCM--colon screen--none documented prostate screen--will get PSA with next routine labs, and if normal, no further screening is indicated 4. FOllow up 1 year, or as needed. GOLDEN Vera--please check with the concerning any history of colonoscopy in the past, and whether he is interested in this. Thanks Medication Reconciliation: Outpatient: Has the patient been taking medications as documented in the EMLR? YES: The patient has been taking medications as documented in the EMLR. Essential Medication List for Review used to complete this medication reconciliation. INCLUDED IN THIS LIST: Alphabetical list of active outpatient prescriptions [facility]ensed from this [facility] (local) and dispensed from another CT or DoD facility (remote) as well as inpatient orders (local, pending and active), local clinic medications, locally documented non-VA medications, and local prescriptions that have or been discontinued in the past 90 days. - All changes in medications, including all non-VA/Herbal/OTC medications were entered into CPRS. - If there were any medications the patient should no longer take, they were discontinued. - The patient/caregiver was instructed to update this list, discard old lists, and take this list to the next appointment, whether with a VA or non-VA provider. /valentín/ Tuan Bach MD INTERNAL MEDICINE and RHEUMATOLOGY Signed: 05/14/2024 12:09 TUAN BACH
--- NOTE | 2024-08-08 13:43 | A.OFFPC_ITS ---
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: No Allergies No Known Allergies Allergy (Verified 08/08/24 13:48) Tobacco use date assessed: 08/08/24 Fall risk assessment: No Falls in past year Last assessed Fall Risk: 08/08/24 Dental Screening Dental Screen Date: 08/08/24 Did you have a dental visit in the last 12 months?: No Did you have a dental problem in the last 6 months where you did not have access to dental care?: Yes Was dental information given to patient?: Patient declined (plans to find a dentist to assist with dentures) HPI HPI Comments History of Present Illness Details 68 year male with a past medical history of type hyperlipidemia, tobacco use, severe COPD presenting to [facility] care. COPD: stable. He is following with pulmonary CV: History of hyperlipidemia. On pravastatin. Due for colon cancer screening. Cologuard ordered. ROS see HPI PHYSICAL EXAM: GENERAL: Alert and oriented x 3. NAD EYES: EOMI. Anicteric. HENT: Moist mucous membranes. No scleral icterus. No cervical lymphadenopathy. LUNGS: Clear to auscultation bilaterally. CARDIOVASCULAR: Regular rate and rhythm. No murmur. No JVD. ABDOMEN: Soft, non-tender +bs EXTREMITIES: No edema. Non-tender. SKIN: No rashes or lesions. Warm. NEUROLOGIC: No focal neurological deficits. CN II-XII grossly intact PSYCHIATRIC: Cooperative. Appropriate mood and affect [facility] Social History Housing: House Patient Tobacco Use Status: Former Tobacco user Cigarette Packs Per Day: 1 Years Smoked: 52 e-Cigarette/Vaping Use: Never Used Second Hand Smoke Exposure: No service: Yes Current occupational status: retired Cognitive needs: No Hearing needs: No Vision needs: Yes (needs glasses[facility]) Questionnaire PHQ-9 Over the last 2 weeks, how often have you been bothered by any of the following problems? 1. Little interest or pleasure in doing things: several days 2. Feeling down, depressed, or hopeless: not at all 3. Trouble falling or staying asleep, or sleeping too much: several days 4. Feeling tired or having little energy: several days 5. Poor appetite or overeating: several days 6. Feeling bad about yourself - or that you are a failure or have let yourself or your family down: not at all 7. Trouble concentrating on things, such as reading the newspaper or watching television: several days 8. Moving or speaking so slowly that other people could have noticed. Or the opposite - being so fidgety or restless that you have been moving around a lot more than usual: several days 9. Thoughts that you would be better off or of hurting yourself in some way: not at all Total score: 6 Depression Screening Interpretation: Positive Depression Screening Follow-up: Declines treatment Depression Screening Done: Yes 58239 - PHQ-9 Billing: Yes Source: Developed by Drs. Hugo Reid, Kelsi Driver, Sachin Hilton and colleagues, with an educational harrison from [employer]. Thrive Questionnaire Date Thrive assessed: 08/08/24 I am a: Patient What is your living situation today?: I have a steady place to live Within the past 12 months, did the food you bought not last and you didn't have the money to get more?: Never true Within the past 12 months, did you worry whether your food would run out before you got money to buy more?: Never true Do you have trouble paying for medicines?: No Do you have trouble getting transportation to medical appointments?: No Do you have trouble paying your heating and electricity bill?: No Do you have trouble taking care of your child, family member or friend?: No Do you have trouble with day-to-day activities such as bathing, preparing meals, shopping, managing finances, etc.?: No Are you currently unemployed and looking for a job?: No Are you interested in more education?: No Please select the resources that you would like help with: None Currently or been in a relationship where the following occur: No concerns reported THRIVE Score: 0 WILSON-7 AMB Questionnaire WILSON-7 Date WILSON - 7 assessed: 08/08/24 Feeling nervous, anxious, or on edge: 0 = Not at all Not being able to stop or control worryin = Not at all Worrying too much about different things: 0 = Not at all Trouble relaxin = Not at all Being so restless that it is hard to sit still: 0 = Not at all Becoming easily annoyed or irritable: 1 = Several days Feeling afraid as if something awful might happen: 0 = Not at all Total WILSON-7 score (0-4 normal; 5-9 mild; 10-14 moderate; 15-21 severe): 1 Source: Developed by Drs. Hugo Reid, Kelsi Driver, Sachin Hilton and colleagues, with an educational harrison from [employer]. WILSON-7 Assessment Billing WILSON-7 Assessment Tool: WILOSN-7 Assessment [id number] Physical exam (Primary Care) Vital Signs: Last Vital Signs Pulse 88 08/08/24 13:52 Resp 16 08/08/24 13:52 BP 130/82 08/08/24 13:52 Pulse Ox 96 08/08/24 13:52 Oxygen Delivery Method Room Air 08/08/24 13:52 BMI result Body Mass Index 34.9 Tobacco/Smoking Status: Tobacco use Status Tobacco use date assessed 08/08/24 08/08/24 13:45 Patient Tobacco Use Status Former Tobacco user 08/08/24 13:45 e-Cigarette/Vaping Use Never Used 08/08/24 13:45 PHQ-9: PHQ-9 Score PHQ-9: Total score 6 08/09/24 16:11 Depression Screening Interpretation: Positive Depression Screening Follow-up: Declines treatment Thrive Assessment: Date of Thrive Assessment Date Thrive assessed 08/08/24 08/08/24 13:56 Currently or been in a relationship where the following occur: No concerns reported Coding Level of Care Code Est Pt Prev Care >65y(92005) Diagnoses Physical exam Z00.00 Hyperlipidemia, unspecified hyperlipidemia type E78.5 Hyperlipidemia type: unspecified Chronic obstructive pulmonary disease with acute exacerbation J44.1 COPD type: COPD with acute exacerbation Additional Codes WILSON-7 Assessment Billing - WILSON-7 Assessment Tool: WILSON-7 Assessment [id number] ([id number]) PHQ-9 - 27160 - PHQ-9 Billing: Yes ([id number]) Assessment & Plan Assessment & Plan (1) Physical exam: Code(s): Z00.00 - Encounter for general adult medical examination without abnormal findings Category: Medical (2) Hyperlipidemia: Code(s): E78.5 - Hyperlipidemia, unspecified Category: Medical Qualifiers: Hyperlipidemia type: unspecified Qualified Code(s): E78.5 - Hyperlipidemia, unspecified (3) COPD (chronic obstructive pulmonary disease): Code(s): J44.9 - Chronic obstructive pulmonary disease, unspecified Category: Medical Qualifiers: COPD type: COPD with acute exacerbation Qualified Code(s): J44.1 - Chronic obstructive pulmonary disease with (acute) exacerbation Plan Physical exam Interval history reviewed HLD-stable on statin therapy Cologuard ordered COPD stable. continue pulm follow up Orders: Orders Prostate Specific Antigen 08/08/24 E78.5 - Hyperlipidemia, unspecified, J44.1 - Chronic obstructive pulmonary disease with (acute) exacerbation, R06.09 - Other forms of dyspnea, Z12.5 - Encounter for screening for malignant neoplasm of prostate Lipid Panel 08/08/24 E78.5 - Hyperlipidemia, unspecified, J44.1 - Chronic obstructive pulmonary disease with (acute) exacerbation, R06.09 - Other forms of dyspnea, Z12.5 - Encounter for screening for malignant neoplasm of prostate Comprehensive Met. Panel 08/08/24 E78.5 - Hyperlipidemia, unspecified, J44.1 - Chronic obstructive pulmonary disease with (acute) exacerbation, R06.09 - Other forms of dyspnea, Z12.5 - Encounter for screening for malignant neoplasm of prostate Referrals Cologuard Test Z12.11 - Encounter for screening for malignant neoplasm of colon, Z12.12 - Encounter for screening for malignant neoplasm of rectum
[2024-08-08 13:52] VITALS: BP 130/82; PULSE 88; RESP 16; O2SAT 96; BMI 34.9
--- OUTSIDE RECORDS SUMMARY | 2024-08-08 14:49 | XMS_ITS | Encounter Summary ---
Author Organization [facility] Address [address] [place] [address] Care Team Providers Care Hands Hanger Name Role Phone Saida Dennis MD Primary Care Provider Saida Martinez MD Primary Care Provider Unavailsreekanth Haque, Pcp Primary Care Provider Heide e Saida Dennis MD Unavailable Unavailable Saida Dennis MD Unavailable Unavailable Melissa Espino MD Primary Care Provider [phone] Encounter Details Date Type Department Care Team Description 07/17/2015 Release of Information Medical Records [address] [place] [id number] Abstract, Provider Social History Tobacco Use Types Packs/Day Years Used Date Smoking Tobacco: Every Day Cigarettes 1 45 Alcohol Use Standard Drinks/Week Comments No 0 (1 standard drink = 0.6 oz pur e alcohol) Sex Assigned at Date Recorded Not on file documented as of this encounter Plan of Treatment Not on file documented as of this encounter Visit Diagnoses Not on filedocumented in this encounter Care Teams Hands Hanger Relationship Specialty Start Date End Date Saida Dennis MD PCP - General Internal Medicine 01/01/15 11/01/18 Saida Dennis MD PCP - General 11/02/18 02/13/19 [facility], Pcp PCP - General Internal Medicine 02/14/19 07/22/21 Melissa Espino MD [address] [place] [address] PCP - General Internal Medicine 07/23/21 Saida Dennis MD Internal Medicine 11/02/18 02/13/19 Saida Dennis MD 02/14/19 documented as of this encounter
--- OUTSIDE RECORDS SUMMARY | 2024-08-08 14:49 | XMS_ITS | Clinical Summary ---
Author Organization [facility] Address [address] [place] [address] Care Team Providers Care Button Station Worker Name Role Phone Melissa Espino MD Primary Care Provider Allergies No known active allergies Medications pravastatin (PRAVACHOL) 10 mg tablet Take 1 tablet (10 mg total) by mouth 1 (one) time each day. 10/24/2021 Active traZODone (DESYREL) 100 mg tablet 10/24/2021 Active melatonin 5 mg tablet Take by mouth. 10/24/2021 Active Active Problems Problem Noted Date Diagnosed Date Hyperlipemia 02/24/2024 Varicose veins of both lower extremities with pa in 04/18/2018 Tobacco use disorder 07/16/2015 Immunizations Name Administration Dates Next Due Influenza Quadravalent, MDCK , 0.5ml, preservative free (Flucelvax) 6mo and older 10/31/2018 Influenza Quadravalent, MDCK , 0.5ml, with preservative (Flucelvax) 6mo and older 11/02/2019 Influenza trivalent, 0.5mL (Fluad) 65yo and olde r 10/24/2021,12/05/2020 Moderna SARS-CoV-2 COVID-19, mRNA, LNP-S, preservative free 05/04/2020,04/06/2020 Medical History Medical History Date Comments Tobacco use disorder 07/16/2015 DX:Tobacco use disorder Hyperlipemia DX:Hyperlipemia Family History Medical History Relation Name Comments Allergies Brother 1 Relation Name Status Comments Brother 1 Brother 2 Social History Tobacco Use Types Packs/Day Years Used Date Smoking Tobacco: Every Day Cigarettes 1 51.5 Started: 02/08/1973 Smokeless Tobacco: Never Alcohol Use Standard Drinks/Week Comments No 0 (1 standard drink = 0.6 oz pur e alcohol) Sex and Gender Information Value Date Recorded Sex Assigned at Not on file Legal Sex Male 4:08 PM EST Gender Identity Not on file Sexual Orientation Not on file Obstetrics History Last Filed Vital Signs Vital Sign Reading Time Taken Comments Blood Pressure 130/77 10/24/2021 1:35 PM EDT Pulse 82 10/24/2021 1:35 PM EDT Temperature - - Respiratory Rate - - Oxygen Saturation - - Inhaled Oxygen Concentration - - Weight 103 kg (226 lb) 10/24/2021 1:35 PM EDT Height 175.3 cm (5' 9 ) 10/24/2021 1:35 PM EDT Body Mass Index 33.37 10/24/2021 1:35 PM EDT Plan of Treatment Health Maintenance Due Date Last Done Comments DTaP,Tdap,and Td Vaccines (1 - Tdap) 1974 Pneumococcal Vaccine: 50+ Years (1 of 2 - PCV) 1974 Zoster Vaccines (1 of 2) 2005 Abdominal Aortic Aneurysm (AAA) Screen 01/07/2022 Depression Screening 01/07/2022 Falls Risk Assessment 01/07/2022 Social Influencers of Health Screening 01/07/2022 Cholesterol Screening (Lipid Panel) 06/22/2023 06/21/2018 COVID-19 Vaccine ( season) 2023 01/19/2021, 05/04/2020, 04/06/2020 Influenza Vaccine (#1) 2024 , 12/05/2020, 11/02/2019, Additional history exists RSV Immunization Adult Patients (1 - 1-dose 75+ series) 2030 Colorectal Cancer Screening: Colonoscopy 10/25/2031 10/24/2021 Hepatitis C Screening Completed 06/21/2018 HIB Vaccines Aged Out No longer eligi ble based on patient's age to complete this topic HPV Vaccines Aged Out No longer eligi ble based on patient's age to complete this topic Hepatitis A Vaccines Aged Out No long er eligible based on patient's age to complete this topic Hepatitis B Vaccines Aged Out No long er eligible based on patient's age to complete this topic IPV Vaccines Aged Out No longer eligi ble based on patient's age to complete this topic MMR Vaccines Aged Out No longer eligi ble based on patient's age to complete this topic Meningococcal ACWY Vaccine Aged Out N o longer eligible based on patient's age to complete this topic Meningococcal B Vaccine Aged Out No l onger eligible based on patient's age to complete this topic RSV Immunization Patients Under 20 months Aged Out No longer eligible based on patient's age to complete this topic Varicella Vaccines Aged Out No longer eligible based on patient's age to complete this topic Procedures Procedure Name Priority Date/Time Associated Diagnosis Comments COLONOSCOPY Routine 10/24/2021 HEPATITIS C SCREENING Routine 06/21/2018 LIPID PANEL Routine 06/21/2018 from Last 3 Months or Most Recently Relevant to Health Maintenance Results * Colonoscopy (10/24/2021) Colonoscopy no interpretation , abstracted Anatomical Region Laterality Modality Other [facility] Provider HEALTH MAINTENANCE Final Result * Hepatitis C Screening (06/21/2018) Pathologist [facility] Hepatitis C Screening abstracted [facility] Provider HEALTH MAINTENANCE Final Result * (ABNORMAL) Lipid panel (06/21/2018) Pathologist [facility] LDL/HDL Ratio 5(A) 0 - 4 Triglycerides 53 0 - 150 mg/dL Cholesterol 286(A) 0 - 200 mg/dL HDL 61 >=40 mg/dL LDL Cholesterol 215(A) 0 - 100 mg/dL Blood Venous blood specimen / Unknown [facility] Provider LAB BLOOD ORDERABLES Elizabeth l Result from Last 3 Months or Most Recently Relevant to Health Maintenance Care Teams Button Station Worker Relationship Specialty Start Date End Date Melissa Espino MD [address] [place] [id number] PCP - General Internal Medicine 07/23/21
== END 2024-08-08 15:22 | disposition home or self-care (01) ==
LOC: HO.HMCFM 13:40
PROVIDERS: PCP Internal Medicine; Visit Provider Internal Medicine
DX: Z00.00 Encounter for general adult medical examination without abnormal findings (principal); E78.5 Hyperlipidemia, unspecified; J44.1 Chronic obstructive pulmonary disease with (acute) exacerbation

== ENCOUNTER → 2024-08-08 13:40 | Outpatient (BNVA) | payer OTHER, SELFPAY | PROVIDERS: PCP Internal Medicine; Visit Provider Internal Medicine | DX: Z00.00 Encounter for general adult medical examination without abnormal findings (principal); Z13.31 Encounter for screening for depression; Z13.30 Encounter for screening examination for mental health and behavioral disorders, unspecified; E78.5 Hyperlipidemia, unspecified; J44.1 Chronic obstructive pulmonary disease with (acute) exacerbation | CPT/HCPCS: 96127 ==

== ENCOUNTER 2024-08-23 10:16 | Outpatient (AMB) | payer OTHER, SELFPAY ==
--- OUTSIDE RECORDS SUMMARY | 2024-08-23 05:50 | XMS_ITS | Continuity of Care Document ---
Author Name [facility] Organization [facility] Care Team Providers Care Panel Beater Name Role Phone [facility] Unavailable Unavailable Problems Combined list of problems from Department of Defense and Veterans Affairs facilities. It does not include entries that were removed or entered in error. Problem Status Onset Date Problem Type Date of Resolution Comments Source cannabinoid user Active Condition [facility] Chronic venous insufficiency Active Condition Mar 10, 2019 Entered By: ROSANGELA LANGLEY Comment: with symptomatic varicositiesMar 10, 2019 Entered By: ROSANGELA LANGLEY Comment: followed by Dr. Rakan Gasca, [facility] Co-management Active Condition Feb Entered By: ROSANGELA LANGLEY Comment: Dr. Saida Gomez, [facility] Hyperlipidemia (SCT [id number]) Active Condition Mar 10, 2019 Entered By: ROSANGELA LANGLEY Comment: on pravastatinNov 14, 2019 Entered By: ROSANGELA LANGLEY Comment: LDL 03/2019 226; 08/2019 176 [facility] Insomnia Active Condition Jun 03 Entered By: CESAR CHRISTIAN Comment: reviewed [facility] Obstructive sleep apnea Active Condition Jul 09, 2020 Entered By: ROSANGELA LANGLEY Comment: 06/2020 overall Apnea-Hypopnea Index of 9.5/hr. [facility] Tobacco use Active Condition Mar 10, 2019 Entered By: ROSANGELA LANGLEY Comment: 1 ppdApr 2021 Entered By: CESAR CHRISTIAN Comment: reviewedMay 14, 2024 Entered By: TUAN BACH Comment: quit 10/2023 [facility] Diagnosis: ICD-10-CM J44.9 Chronic obstructive pulmonary disease, unspecified Active Diagnosis [place] Diagnosis: ICD-10-CM Z00.01 Encounter for general adult medical exam w abnormal findings Active Diagnosis [facility] [place] Diagnosis: ICD-10-CM E78.5 Hyperlipidemia, unspecified Active Diagnosis [place] Medications Combined list of outpatient medications from [...] ONCE DAILY FOR ALLERGIE S ORAL ACTIVE 03/21/2025 [id number] 5 JUNEYEN P 2024 90 [facility] CETIRIZINE HCL 10MG TAB TAKE ONE TABLET BY MOUTH ONCE DAILY FOR ALLERGIE S ORAL DISCONT INUED 12/31/2024 [id number] SHIVAM, APOLINARI O 2023 90 [facility] FLUTICASONE 500MCG/SALM ETEROL 50MCG INHL,ORAL,D ISKUS,60 INHALE 1 PUFF BY MOUTH TWICE DAILY FOR BRONCHOS [place] PREVENTI ON WITH COPD - RINSE MOUTH AFTER USE INSTEAD OF BRETZI RESPIR ATORY (INHAL ATION) ACTIVE 03/21/2025 [id number] 5 JUNE,YEN STEWARD P 2024 3 [facility] FLUTICASONE 500MCG/SALM ETEROL 50MCG INHL,ORAL,D ISKUS,60 INHALE 1 PUFF BY MOUTH TWICE DAILY FOR BRONCHOS PASM PREVENTI ON WITH COPD - RINSE MOUTH AFTER USE INSTEAD OF BRETZI RESPIR ATORY (INHAL ATION) DISCONT INUED 12/31/2024 [id number] SHIVAM, APOLINARI O 2023 3 [facility] PRAVASTATIN NA 20MG TAB TAKE ONE TABLET BY MOUTH ONCE DAILY FOR CHOLESTE ROL ORAL DISCONT INUED BY PROVIDE R 06/17/2024 [id number] 4 SHIVAM, APOLINARI O 2023 90 [facility]ELD PRAVASTATIN NA 20MG TAB TAKE ONE TABLET BY MOUTH ONCE DAILY ORAL ACTIVE JUNEYEN P 2024 [facility] IELD TIOTROPIUM 2.5MCG/ACTU AT INHL,ORAL,6 0D,4GM INHALE 2 PUFFS BY MOUTH ONCE DAILY FOR BRONCHOS PASM PREVENTI ON WITH COPD RESPIR ATORY (INHAL ATION) ACTIVE 03/21/2025 [id number] 5 JUNE,YEN RLY P 2024 3 [facility] [place] TIOTROPIUM 2.5MCG/ACTU AT INHL,ORAL,6 0D,4GM INHALE 2 PUFFS BY MOUTH ONCE DAILY FOR BRONCHOS PASM PREVENTI ON WITH COPD RESPIR ATORY (INHAL ATION) DISCONT INUED 12/31/2024 [id number] MICHELINE LANGLEY 2023 3 [facility] Immunizations Combined list of available immunizations from the Department of Defense and [facility] facilities. Immunization Series Date Given Administered By Site Reaction Lot Number CVX Code Drug Typewriters Functional Tester Status Comments Source PNEUMOCOCCAL CONJUGATE PCV20, POLYSACCHARID E [id number] CONJUGATE, ADJUVANT, PF 2022 WADE LARSEN RIGHT DELTO ID [id number] 216 complet ed [facility] ([place] [place]) IELD TDAP 2022 WADE LARSEN RIGHT DELTO ID L 115 complet ed [facility] ([place] [place]) IE INFLUENZA, UNSPECIFIED FORMULATION 2022 88 complet ed HISTORICA L INFORMATI ON - SOURCE [facility]PECIFI [facility] INFLUENZA, UNSPECIFIED FORMULATION 2021 88 complet ed HISTORICA L INFORMATI ON - SOURCE UNSPECIFI ED, [facility] COVID-19 (MODERNA), MRNA, LNP-S, PF, 100 MCG/0.5ML DOSE OR 50 MCG/0.25ML DOSE 3 2020 207 complet ed HISTORICA L INFORMATI ON - SOURCE UNSPECIFI ED, [facility] INFLUENZA VACCINE, QUADRIVALENT, ADJUVANTED 2020 205 complet ed [facility] [place] COVID-19 (MODERNA), MRNA, LNP-S, PF, 100 MCG/0.5 ML DOSE 2 2020 207 complet ed MOD; [id number]; 1 [place] COVID-19 (MODERNA), MRNA, LNP-S, PF, 100 MCG/0.5 ML DOSE 1 2020 207 complet ed MOD; [id number]; 1 [place] INFLUENZA, INJECTABLE, QUADRIVALENT, PRESERVATIVE FREE 2019 150 complet ed [place] INFLUENZA, SEASONAL, INJECTABLE 2018 141 complet ed [facility] [place] [facility] DTAP, UNSPECIFIED FORMULATION 2012 107 complet ed [...] Reference Range Date Interpretation Specimen Comments Source LIPID PANEL FASTING CHOLESTEROL [MASS/VOLUM E] IN SERUM OR PLASMA 201 mg/dL 09/20 H Specimen Type: SERUM No comment entered. Ordering Provider: AMAIRANI LANGLEY Report Released Date/Time: Sep 21, 2023 01:41 PM Reporting Lab: [facility] [address] [facility] [address] Performing Lab: [facility] [address] [facility] [facility] [address] [facility] LIPID PANEL FASTING TRIGLYCERID E [MASS/VOLUM E] IN SERUM OR PLASMA 69 mg/dL 0 - 150 09/20 Specimen Type: SERUM No comment entered. Ordering Provider: AMAIRANI LANGLEY Report Released Date/Time: Sep 21, 2023 01:41 PM Reporting Lab: [facility] [address] [facility] [address] Performing Lab: [facility] [address] [facility] [facility] [address] [facility] LIPID PANEL FASTING CHOLESTEROL IN LDL [MASS/VOLUM E] IN SERUM OR PLASMA BY CALCULATION 129 mg/dL 0 - 129 09/20 Specimen Type: SERUM No comment entered. Ordering Provider: AMAIRANI LANGLEY Report Released Date/Time: Sep 21, 2023 01:41 PM Reporting Lab: [facility]RL TRN [facility]ITALUSEMO[facility]ANS[facility] [address] [facility] [address] Performing Lab: [facility]R [facility] [address] [facility] [address] [facility]ITALRNOL[facility]OSPITAL TUSCALOOSATRN [facility] HOSPITALUSE [facility] LIPID PANEL FASTING CHOLESTEROL .TOTAL/CHOL ESTEROL IN HDL [MASS RATIO] IN SERUM OR PLASMA 3.5 09/20 Specimen Type: SERUM No comment entered. Ordering Provider: AMAIRANI LANGLEY Report Released Date/Time: Sep 21, 2023 01:41 PM Reporting Lab: [facility] [address] [address] Performing Lab: [facility] BAR[place]OURN [facility]ITALUSE[address] [address] [facility] LIPID PANEL FASTING CHOLESTEROL IN HDL [MASS/VOLUM E] IN SERUM OR PLASMA 58 mg/dL 40 - 60 09/20 Specimen Type: SERUM No comment entered. Ordering Provider: AMAIRANI LANGLEY Report Released Date/Time: Sep 21, 2023 01:41 PM Reporting Lab: [facility]ITALRNOL[facility] TUSCALOOSATRN [facility]ITALUSE[address] [address] Performing Lab: [facility]ITALRL TRN [facility]ITALUSE[address] [address] [facility]ITALR[facility]ENTER BARBOURN [facility]ITALUSE [facility] LIVER FUNCTION PROTEIN [MASS/VOLUM E] IN SERUM OR PLASMA 7.5 g/dL 6.0 - 8.3 09/20 Specimen Type: SERUM No comment entered. Ordering Provider: AMAIRANI LANGLEY Report Released Date/Time: Sep 21, 2023 01:41 PM Reporting Lab: [facility]ITALRNOL[facility] TUSCALOOSATRN [facility]OSPITALUSE[address] [address] Performing Lab: [facility]ITALRNOL[facility] TUSCALOOSATRN [facility]ITALUSE[address] [address] [facility]ITALRL WSTRN [place] TS [facility] LIVER FUNCTION ALBUMIN [MASS/VOLUM E] IN SERUM OR PLASMA 4.2 g/dL 3.5 - 5.0 09/20 Specimen Type: SERUM No comment entered. Ordering Provider: AMAIRANI LANGLEY Report Released Date/Time: Sep 21, 2023 01:41 PM Reporting Lab: [facility] [place] [facility] [address] [facility] [address] Performing Lab: [facility] [place] [facility] [address] [facility] [facility] [address] [facility]ITALRL W[facility]N [place] [facility] LIVER FUNCTION ALKALINE PHOSPHATASE [ENZYMATIC ACTIVITY/VO LUME] IN SERUM OR PLASMA 69 U/L 40 - 150 09/20 Specimen Type: SERUM No comment entered. Ordering Provider: AMAIRANI LANGLEY Report Released Date/Time: Sep 21, 2023 01:41 PM Reporting Lab: [facility] [place] [address] [address] Performing Lab: [facility] [place] [facility] [address] [facility] [address] [facility] [place] [facility] LIVER FUNCTION ASPARTATE AMINOTRANSF ERASE [ENZYMATIC ACTIVITY/VO LUME] IN SERUM OR PLASMA 21 U/L 5 - 34 09/20 Specimen Type: SERUM No comment entered. Ordering Provider: AMAIRANI LANGLEY Report Released Date/Time: Sep 21, 2023 01:41 PM Reporting Lab: [facility] [place] [facility] [address] [facility] [address] Performing Lab: [facility] [place] [facility] [address] [facility] [address] [facility] [place] [facility] LIVER FUNCTION ALANINE AMINOTRANSF ERASE [ENZYMATIC ACTIVITY/VO LUME] IN SERUM OR PLASMA 21 U/L 09/20 Specimen Type: SERUM No comment entered. Ordering Provider: AMAIRANI LANGLEY Report Released Date/Time: Sep 21, 2023 01:41 PM Reporting Lab: [facility] [place] [facility] [address] [facility] [address] Performing Lab: [facility] [address] [facility] [facility] [address] [facility] LIVER FUNCTION BILIRUBIN.T OTAL [MASS/VOLUM E] IN SERUM OR PLASMA 0.6 mg/dL 0.2 - 1.2 09/20 Specimen Type: SERUM No comment entered. Ordering Provider: AMAIRANI LANGLEY Report Released Date/Time: Sep 21, 2023 01:41 PM Reporting Lab: [facility]ITALRL TRN [facility] [address] [facility] [facility] [address] Performing Lab: [facility]ITALR[facility] [place]OURN [facility] [address] [facility] [facility] [address] [facility] VITAMIN D (25-OH) 25-HYDROXYV ITAMIN D3 [MASS/VOLUM E] IN SERUM OR PLASMA 26 ng/mL 20 - 50 09/20 Specimen Type: SERUM No comment entered. Ordering Provider: AMAIRANI LANGLEY Report Released Date/Time: Sep 21, 2023 01:41 PM Reporting Lab: [facility]ITALR[facility] [address] [facility] [address] Performing Lab: [facility]ITALR[facility] [place]N [facility] [address] [facility] [address] [facility] BASIC METABOLIC PANEL (non-fast ing) UREA NITROGEN [MASS/VOLUM E] IN SERUM OR PLASMA 8 mg/dL 7 - 25 09/20 Specimen Type: SERUM No comment entered. Ordering Provider: AMAIRANI LANGLEY Report Released Date/Time: Sep 21, 2023 01:41 PM Reporting Lab: [facility]ITALRNOL[facility] TUSCALOOSATRN [facility] [address] [facility] [address] Performing Lab: [facility]ITALRMED[facility] CENTER [place]N [facility]OSPITALUSEMOHANSIC [facility] [address] [facility] [facility] [address] [facility] BASIC METABOLIC PANEL (non-fast ing) GLUCOSE [MASS/VOLUM E] IN SERUM OR PLASMA 80 mg/dL 65 - 100 09/20 Specimen Type: SERUM No comment entered. Ordering Provider: AMAIRANI LANGLEY Report Released Date/Time: Sep 21, 2023 01:41 PM Reporting Lab: [facility] [place] [facility] [address] [facility] [address] Performing Lab: [facility] [place] [facility] [address] [facility] [address] [facility] [place] [facility] BASIC METABOLIC PANEL (non-fast ing) SODIUM [MOLES/VOLU ME] IN SERUM OR PLASMA 138 mmol/L 135 - 145 09/20 Specimen Type: SERUM No comment entered. Ordering Provider: AMAIRANI LANGLEY Report Released Date/Time: Sep 21, 2023 01:41 PM Reporting Lab: [facility] [place] [facility] [address] [facility] [address] Performing Lab: [facility] [place] [facility] [address] [facility] [address] [facility]ITALRL WSTRN [facility] HOSPITALUSE [facility] BASIC METABOLIC PANEL (non-fast ing) POTASSIUM [MOLES/VOLU ME] IN SERUM OR PLASMA 4.2 mmol/L 3.5 - 5.0 09/20 Specimen Type: SERUM No comment entered. Ordering Provider: AMAIRANI LANGLEY Report Released Date/Time: Sep 21, 2023 01:41 PM Reporting Lab: [facility] [place] [facility] [address] [facility] [address] Performing Lab: [facility] [place] [facility] [address] [facility] [facility] [address] [facility]ITALRL WSTRN [place] [facility] BASIC METABOLIC PANEL (non-fast ing) CHLORIDE [MOLES/VOLU ME] IN SERUM OR PLASMA 104 mmol/L 100 - 110 09/20 Specimen Type: SERUM No comment entered. Ordering Provider: AMAIRANI LANGLEY Report Released Date/Time: Sep 21, 2023 01:41 PM Reporting Lab: [facility] [place] [facility] [address] [facility] [address] Performing Lab: [facility] [place] [facility] [address] [facility] [address] [facility] [place] [facility] BASIC METABOLIC PANEL (non-fast ing) CARBON DIOXIDE, TOTAL [MOLES/VOLU ME] IN SERUM OR PLASMA 23 meq/L 20 - 30 09/20 Specimen Type: SERUM No comment entered. Ordering Provider: AMAIRANI LANGLEY Report Released Date/Time: Sep 21, 2023 01:41 PM Reporting Lab: [address] [address] Performing Lab: [address] [address] [facility] BASIC METABOLIC PANEL (non-fast ing) CREATININE [MASS/VOLUM E] IN SERUM OR PLASMA 0.85 mg/dL 0.50 - 1.40 09/20 Specimen Type: SERUM No comment entered. Ordering Provider: AMAIRANI LANGLEY Report Released Date/Time: Sep 21, 2023 01:41 PM Reporting Lab: [address] [address] Performing Lab: [address] [address] [facility] BASIC METABOLIC PANEL (non-fast ing) GLOMERULAR FILTRATION RATE/1.73 SQ M.PREDICTED [VOLUME RATE/AREA] IN SERUM, PLASMA OR BLOOD BY CREATININE- BASED FORMULA (CKD-EPI 2020) >90mL/ min 60 09/20 Specimen Type: SERUM No comment entered. Ordering Provider: AMAIRANI LANGLEY Report Released Date/Time: Sep 21, 2023 01:41 PM Reporting Lab: [address] [address] Performing Lab: [address] [address] [facility] HEMOGLOBI N A1C PANEL HEMOGLOBIN A1C/HEMOGLO BIN.TOTAL [...] be between 8.73 and 9.27. Ref: [email or web address] Ordering Provider: AMAIRANI LANGLEY Report Released Date/Time: Apr 08, 2023 09:54 AM Reporting Lab: [facility] [address] [facility] [address] Performing Lab: [facility] [address] [facility] [address] [facility] [place] [facility] TSH THYROTROPIN [UNITS/VOLU ME] IN SERUM OR PLASMA 3.60 u[IU]/ mL 0.35 - 5.00 04/14 Specimen Type: SERUM No comment entered. Ordering Provider: AMAIRANI LANGLEY Report Released Date/Time: Apr 08, 2023 09:54 AM Reporting Lab: [facility] [place] [facility] [address] [facility] [address] Performing Lab: [facility] [place] [facility] [address] [facility] [address] [facility] [place] [facility] CALCIUM CALCIUM [MASS/VOLUM E] IN SERUM OR PLASMA 9.0 mg/dL 8.5 - 10.2 04/14 Specimen Type: SERUM No comment entered. Ordering Provider: AMAIRANI LANGLEY Report Released Date/Time: Apr 08, 2023 09:54 AM Reporting Lab: [facility] [address] [facility] [address] Performing Lab: [facility] [address] [facility] [address] [facility] [place] [facility] MAGNESIUM MAGNESIUM [MASS/VOLUM E] IN SERUM OR PLASMA 2.1 mg/dL 1.6 - 2.6 04/14 Specimen Type: SERUM No comment entered. Ordering Provider: AMAIRANI LANGLEY Report Released Date/Time: Apr 08, 2023 09:54 AM Reporting Lab: [facility] [address] [facility] [address] Performing Lab: [facility] [place] [facility] [address] [facility] [address] [facility]RL [facility] [place] [facility] VITAMIN D (25-OH) 25-HYDROXYV ITAMIN D3 [MASS/VOLUM E] IN SERUM OR PLASMA 24 ng/mL 20 - 50 04/14 Specimen Type: SERUM No comment entered. Ordering Provider: AMAIRANI LANGLEY Report Released Date/Time: Apr 08, 2023 09:54 AM Reporting Lab: [facility] [place] [facility] [address] [facility] [address] Performing Lab: [facility] [place] [facility] [address] [facility] [address] [facility] WSTR[facility] MICROALBU MIN CREATININ E RATIO PANEL MICROALBUMI N/CREATININ E [MASS RATIO] IN URINE cancmg /g 0 - 29.9 04/14 Specimen Type: URINE No comment entered. Ordering Provider: AMAIRANI LANGLEY Report Released Date/Time: Apr 08, 2023 09:54 AM Reporting Lab: [facility] [place] [facility] [address] [facility] [address] Performing Lab: [facility] [place] [facility] [address] [facility] [address] [facility] MICROALBU MIN CREATININ E RATIO PANEL MICROALBUMI N [MASS/VOLUM E] IN URINE < 0.5mg/ dL 04/14 Specimen Type: URINE No comment entered. Ordering Provider: AMAIRANI LANGLEY Report Released Date/Time: Apr 08, 2023 09:54 AM Reporting Lab: [facility] [place] [facility] [address] [facility] [address] Performing Lab: [facility] [place] [facility] [address] [facility] [address] [facility] [place] [facility] MICROALBU MIN CREATININ E RATIO PANEL CREATININE [MASS/VOLUM E] IN URINE 51.63 mg/dL 04/14 Specimen Type: URINE No comment entered. Ordering Provider: AMAIRANI LANGLEY Report Released Date/Time: Apr 08, 2023 09:54 AM Reporting Lab: [facility] [place] [address] [facility] [address] Performing Lab: [facility] [place] [facility] [address] [facility] [address] [facility] [place] Vital Signs Combined list of inpatient and outpatient Vital Signs from Department of Defense and Veterans Affairs, ranging from 12 months to all on record, depending upon the facility. Vital Sign Value Date Comments Source SYSTOLIC BLOOD PRESSURE 128 03/20/19 25 14:12:03 [facility] DIASTOLIC BLOOD PRESSURE 78 025 14:12:03 [facility] PULSE OXIMETRY 98 03/20/2024 14:12:03 [facility] WEIGHT 224.7 03/20/2024 14:12:03 [facility] BMI 33 kg/m2 03/20/2024 14:12:03 [facility] TEMPERATURE 98.9 03/20/2024 14:12:03 [facility] PULSE 88 03/20/2024 14:12:03 [facility] SYSTOLIC BLOOD PRESSURE 119 09/21/19 24 14:28:36 [facility] DIASTOLIC BLOOD PRESSURE 79 024 14:28:36 [facility] [place] PULSE OXIMETRY 97 09/21/2023 14:28:36 [facility] WEIGHT 196.4 09/21/2023 14:28:36 [facility] BMI 29 kg/m2 09/21/2023 14:28:36 [facility] PAIN 0 09/21/2023 14:28:36 [facility] HEIGHT 69 09/21/2023 14:28:36 [facility] TEMPERATURE 96.6 09/21/2023 14:28:36 [facility] PULSE 87 09/21/2023 14:28:36 [facility] RESPIRATION 20 09/21/2023 14:28:36 [facility] Encounters Combined list of: 1) Encounters from Department of Veterans Affairs facilities going backup to the last 18 months, not all VA inpatient encounters are included; 2) Encounters from the Department of Defense facilities going backup to 280 months. Location Location Details Encounter Type Encounter Number Reason For Visit Attending Provider ADM Date DC Date Status Disposition Source [facility] OFFICE O/P EST MOD 30 MIN [id number] Diagnos is: ICD-10- CM E78.5 Hyperli pidemia , unspeci fied SHIVAM,A POLINARIO 04/28 [facility] Encounter [id number] 06[facility]14 [facility] Encounter [id number] 06/14 [facility] Encounter [id number] 06/15 [facility] Encounter [id number] 06/21 [facility] Encounter [id number] ELIZA ESCOBAR 06/21 [facility] Encounter [id number] 06/30 [facility] [id number] [facility] OFFICE O/P EST MOD 30 MIN [id number] Diagnos is: ICD-10- CM Z00.01 Encount er for general adult medical exam w abnorma l finding s SHIVAMSteven Harris 09/20 [facility] [id number] 1.10/06 [facility] [id number] 1[facility]10/06 [facility] [id number] [facility] [id number] [facility] [id number] 1.12/27 [facility] [id number] 12/28 [facility] [id number] 12/28 [facility] [id number] 1.12/28 [facility] [id number] 12/30 [facility] [id number] 03/20 [facility] OFF[facility] O/P EST MOD 30 MIN [id number] Diagnos is: ICD-10- CM J44.9 Chronic obstruc tive pulmona ry disease , unspeci fied JUNEJANAY LY P 03/20 [place] [facility] [facility] Outpatient Encounter [id number] 08/14 [facility] Social History Combined list of available smoking, tobacco, and other social history from Department of Defense and Veterans Affairs facilities. Social History Type Response Date Comment Sour e Tobacco smoking status MNIS VA-TOBACCO USER EVERY DAY 09/21/2023 [place] History of tobacco use VA-TOBACCO USE WI 30 MIN OF WAKEUP 09/21/2023 [place] History of tobacco use VA-TOBACCO USER EVERY DAY 06/22/2022 [place] History of tobacco use VA-TOBACCO USER EVERY DAY 06/03/2021 [place] History of tobacco use VA-TOBACCO USER EVERY DAY 04/22/2020 [place] History of tobacco use VA-TOBACCO USE MED NO 02/21/2019 [facility] History of tobacco use CURRENT SMOKER 04/20/2012 pt smokes a half a pack of cigaretts a day. [place] Plan of Care List of future care activities from Department of Veterans Affairs facilities. Additional future care activities may be listed in the Assessment and Plan section. Date/Time Care Activity Care Activity Detail Facili ty 11/29/2024 AMBULATORY - MEDICINE AMBULATORY - MEDICI [facility] [facility]
--- NOTE | 2024-08-23 10:21 | MHC.OFFVIS ---
Vital Signs 08/23/24 10:22 Height 5 ft 7 in Weight 221 lb 8 oz BMI 34.7 BP 136/82 Blood Pressure Location Lt brachial Position Sitting Pulse 87 Pulse Source Pulse Oximeter Pulse Oximetry (%) 95 Oxygen Delivery Method Room Air Intake Visit Reasons: COPD Allergies No Known Allergies Allergy (Verified 08/23/24 10:24) HPI HPI COPD: Details: Dave is a pleasant 69 year old male, former 50 pack year smoker, recently quit 6+ months ago with underlying severe COPD and HLD. Since last visit patient has been well controlled on Wixela and Spiriva, not requiring the use of albuterol MDI. He denies any respiratory symptoms at this time. He denies any visits to urgent care hospitalizations related to respiratory distress since last visit. He was previously sent for chest CT given smoking history to [facility] however this has yet to be scheduled. He does express concerns with insurance coverage and referrals through the [facility] as he has not seen his primary care for quite some time. He has an upcoming appointment in November with a new PCP through the [facility] and will request referral to pulmonology. Prior chest x-ray from October 2023 unremarkable. [facility] Social History Housing: House Patient Tobacco Use Status: Former Tobacco user Cigarette Packs Per Day: 1 Years Smoked: 52 e-Cigarette/Vaping Use: Never Used Second Hand Smoke Exposure: No service: Yes Current occupational status: retired Cognitive needs: No Hearing needs: No Vision needs: Yes (needs glasses, will go to [facility]) Review of Systems Const Denies chills, Denies excessive sweating, Denies fever(s), Denies headache(s) and Denies night sweats Eyes Denies dry eyes, Denies irritation and Denies itchy eyes ENT Reports Normal hearing present, Denies headache(s), Denies nasal congestion, Denies nasal discharge, Denies post nasal drip and Denies sore throat Card Denies chest pain, Denies chest pain at rest, Denies chest pain with activity, Denies claudication, Denies leg edema, Denies dyspnea, Denies dyspnea on exertion, Denies orthopnea and Denies paroxysmal nocturnal dyspnea Resp Denies chest congestion, Denies cough, Denies excessive phlegm production, Denies pain on inspiration, Denies pain with cough, Denies dyspnea, Denies dyspnea on exertion, Denies stridor and Denies wheezing Musc Denies myalgias Neuro Reports Normal hearing present and Denies headache(s) Endo Denies excessive sweating Gaurav/Lymph Denies lymphadenopathy Aller/Immun Denies itchy eyes, Denies seasonal rhinorrhea and Denies wheezing Physical Exam Vital Signs: Last Vital Signs Pulse 87 08/23/24 10:22 BP 136/82 08/23/24 10:22 Pulse Ox 95 08/23/24 10:22 Oxygen Delivery Method Room Air 08/23/24 10:22 BMI result Body Mass Index 34.7 Const General: cooperative, healthy appearing, comfortable, no acute distress, well developed and alert Orientation/consciousness: patient oriented x3 Limitations: no limitations HEENT Head: Yes normal to inspection, Yes normocephalic and Yes atraumatic Ears: hearing grossly normal bilaterally and external ears normal Eyes General: appearance normal, both eyes and all related structures Eyelids: Yes eyelids normal Sclerae: sclerae normal EOM: EOMs intact bilaterally Neck Neck: Yes normal visual inspection and Yes no lymphadenopathy Lymphatic: no lymphadenopathy noted Chest Chest palpation & inspection: normal inspection of the chest Resp Effort & Inspection: normal respiratory effort, able to speak in complete sentences, no audible wheezes, no cough, no stridor, not tachypneic, no tripod positioning and no use of accessory muscles Auscultation: diminished lung sounds Cardio Jugular venous distension: no JVD Rate: regular rate Rhythm: regular rhythm Skin Other: warm, dry General skin exam: no rashes or lesions noted Neuro General: patient oriented x3 Cranial nerves: Yes Normal hearing present Cognition (Neuro): normal cognition Gait exam (Neuro): Normal gait present Extrem General: Yes normal to inspection, Yes capillary refill normal, Yes no clubbing, cyanosis or edema and Yes no pedal edema Psych Appearance: grossly normal and well kempt Speech and movement: Normal speech and movement present and Clear speech present Affect: normal affect Attitude: cooperative Thought process: Normal thought process present Thought content: Normal thought content present Insight: Good insight present (Psych) Judgement: Good judgement present (Psych) Assessment & Plan Assessment & Plan (1) COPD (chronic obstructive pulmonary disease): Code(s): J44.9 - Chronic obstructive pulmonary disease, unspecified Category: Medical Qualifiers: COPD type: COPD with acute exacerbation Qualified Code(s): J44.1 - Chronic obstructive pulmonary disease with (acute) exacerbation (2) Nicotine dependence, cigarettes, uncomplicated: Code(s): F17.210 - Nicotine dependence, cigarettes, uncomplicated Category: Medical Plan At this time Dave reports good control of respiratory symptoms on current regimen of Wixela and Spiriva, advised to continue. Discussed when to use albuterol MDI. We discussed need for further imaging giving smoking history however he would like to wait until he establishes care with new PCP to the [facility]. Recommended obtaining chest x-ray now as his appointment is not until November however he would like to wait at this time. All questions were answered and patient is in agreement of plan. Will follow up in three months or sooner if needed. Orders: Orders XR chest 2V Today R05.9 - Cough, unspecified Medications: Discontinued budesonide-formoterol 160-4.5 mcg/actuation (Symbicort) Discontinued Reason: Patient Completed Course 2 puffs inhalation Q12H 3 ea 3RF J44.1 - Chronic obstructive pulmonary disease with (acute) exacerbation Coding Level of Care Code Est Pt Level 4 (66835) Diagnoses Chronic obstructive pulmonary disease with acute exacerbation J44.1 COPD type: COPD with acute exacerbation Nicotine dependence, cigarettes, uncomplicated F17.210
[2024-08-23 10:22] VITALS: BP 136/82; PULSE 87; O2SAT 95; BMI 34.7
--- OUTSIDE RECORDS SUMMARY | 2024-08-23 10:52 | XMS_ITS | Clinical Summary ---
Author Organization [facility] Address [address] [place] [address] Care Team Providers Care Turfgrass Technician Name Role Phone Melissa Espino MD Primary [...] , abstracted Anatomical Region Laterality Modality Other [facility] Provider HEALTH MAINTENANCE Final Result * Hepatitis C Screening (06/21/2018) Pathologist [facility] Hepatitis C Screening abstracted [facility] Provider HEALTH MAINTENANCE Final Result * (ABNORMAL) Lipid panel (06/21/2018) Pathologist [facility] LDL/HDL Ratio 5(A) 0 - 4 Triglycerides 53 0 - 150 mg/dL Cholesterol 286(A) 0 - 200 mg/dL HDL 61 >=40 mg/dL LDL Cholesterol 215(A) 0 - 100 mg/dL Blood Venous blood specimen / Unknown [facility] Provider LAB BLOOD ORDERABLES Elizabeth l Result from Last 3 Months or Most Recently Relevant to Health Maintenance Care Teams Turfgrass Technician Relationship Specialty Start Date End Date Melissa Espino MD [address] [place] [id number] PCP - General Internal Medicine 07/23/21
== END 2024-08-23 10:57 | disposition home or self-care (01) ==
PROVIDERS: PCP Internal Medicine; Visit Provider Nurse Practitioner Family
DX: J44.1 Chronic obstructive pulmonary disease with (acute) exacerbation (principal); F17.210 Nicotine dependence, cigarettes, uncomplicated
CPT/HCPCS: 99214

== ENCOUNTER 2024-11-24 13:01 | Outpatient (REF) | payer OTHER, SELFPAY ==
--- OUTSIDE RECORDS SUMMARY | 2024-11-24 15:38 | XMS_ITS | Encounter Summary ---
Author Organization [facility] Address [address] [place] [address] Care Team Providers Care Dry Can Tender Name Role Phone Saida Dennis MD Unavailable Unavailable Melissa Espino MD Primary Care Provider + [phone] Reason for Visit * Reason Onset Date Comments Medical Records 10/24/2021 Encounter Details Date Type Department Care Team Description 10/24/2021 Telephone Adult Medicine - [place] [address] [place] [address] Melissa Espino MD [address] [place] [address] Medical Records Social History Tobacco Use Types Packs/Day Years Used Date Smoking Tobacco: Every Day Cigarettes 1 45 Started: [birth year]/08/1973 Smokeless Tobacco: Never Alcohol Use Standard Drinks/Week Comments No 0 (1 standard drink = 0.6 oz pur e alcohol) Sex Assigned at Date Recorded Not on file COVID-19 Exposure Response Date Recorded In the last 10 days, have yo u been in contact with someone who was confirmed or suspected to have Coronavirus/COVID-19? No / Unsure 10/24/2021 1:28 PM EDT documented as of this encounter Miscellaneous Notes * Telephone Encounter - Milli Leigh - 10/24/2021 4:46 PM EDT Pt filled out medical records for posen - medical record form faxed and confirmation received documented in this encounter Plan of Treatment Not on file documented as of this encounter Visit Diagnoses Not on filedocumented in this encounter Care Teams Dry Can Tender Relationship Specialty Start Date End Date Melissa Espino MD [address] [place] [id number] PCP - General Internal Medicine 07/23/21 Saida Dennis MD 02/14/19 documented as of this encounter
--- OUTSIDE RECORDS SUMMARY | 2024-11-24 15:38 | XMS_ITS | Clinical Summary ---
Author Organization [facility] Address [address] [place] [address] Care Team Providers Care Underwater Photographer Name Role Phone Melissa Espino MD Primary [...] in 04/18/2018 Tobacco use disorder 07/16/2015 Immunizations Immunization Administration Dates Next Due Influenza Quadravalent, MDCK [...] Date Smoking Tobacco: Every Day Cigarettes 1 51.8 Started: 02/08/1973 Smokeless Tobacco: Never Alcohol Use [...] 2005 Abdominal Aortic Aneurysm (AAA) Screen 01/07/2022 Falls Risk Assessment 01/07/2022 Social Influencers of Health Screening 01/07/2022 Cholesterol Screening (Lipid Panel) 06/22/2023 06/21/2018 Depression Screening 02/09/2024 COVID-19 Vaccine ( season) 2024 01/19/2021, 05/04/2020, 04/06/2020 Influenza Vaccine (#1) 2024 2, 12/05/2020, 11/02/2019, Additional history exists RSV Immunization [...] , abstracted Anatomical Region Laterality Modality Other [facility] Provider HEALTH MAINTENANCE Final Result * Hepatitis C Screening (06/21/2018) Pathologist [facility] Hepatitis C Screening abstracted [facility] Provider HEALTH MAINTENANCE Final Result * (ABNORMAL) Lipid panel (06/21/2018) Pathologist [facility] LDL/HDL Ratio 5(A) 0 - 4 Triglycerides 53 0 - 150 mg/dL Cholesterol 286(A) 0 - 200 mg/dL HDL 61 >=40 mg/dL LDL Cholesterol 215(A) 0 - 100 mg/dL Blood Venous blood specimen / Unknown [facility] Provider LAB BLOOD ORDERABLES Elizabeth l Result from Last 3 Months or Most Recently Relevant to Health Maintenance Care Teams Underwater Photographer Relationship Specialty Start Date End Date Melissa Espino MD [address] [place] [id number] PCP - General Internal Medicine 07/23/21
--- OUTSIDE RECORDS SUMMARY | 2024-11-24 15:38 | XMS_ITS | Encounter Summary ---
Author Organization [facility] Address [address] [place] [address] Care Team Providers Care Retail Property Manager Name Role Phone Saida Dennis MD Primary Care Provider Saida Martinez MD Primary Care Provider Unavailsreekanth Haque, Pcp Primary Care Provider Heide e Saida Dennis MD Unavailable Unavailable Saida Dennis MD Unavailable Unavailable Melissa Espino MD Primary Care Provider [phone] Encounter Details Date Type Department Care Team Description 07/17/2015 Release of Information Medical Records [address] [place] [id number] Abstract, Provider Social History Tobacco Use Types [...] on filedocumented in this encounter Care Teams Retail Property Manager Relationship Specialty Start Date End Date Saida Dennis MD PCP - General Internal Medicine 01/01/15 11/01/18 Saida Dennis MD PCP - General 11/02/18 02/13/19 [facility], Pcp PCP - General Internal Medicine 02/14/19 07/22/21 Melissa Espino MD [address] [place] [address] PCP - General Internal Medicine 07/23/21 Saida Dennis MD Internal Medicine 11/02/18 02/13/19 Saida Dennis MD 02/14/19 documented as of this encounter
[2024-11-24 18:33] LABS: Alanine Aminotransferase 27 U/L (0-40); Albumin Level 4.3 g/dL (3.5-5.0); Alkaline Phosphatase 80 U/L (39-117); Anion Gap 15 (12-20); Aspartate Amino Transferase 38 U/L (5-37); Blood Urea Nitrogen 8 mg/dL (9-16); Calcium 9.2 mg/dL (8.4-10.2); Carbon Dioxide 19 mmol/L (22-29); Chloride 107 mmol/L (96-108); Cholesterol 207 mg/dL (<200); Estimated Glomerular Filt Rate > 60; HDL Cholesterol 61 mg/dL (>40); Potassium 4.2 mmol/L (3.3-5.1); Sodium 137 mmol/L (135-145); Total Protein 8.1 g/dL (6.5-8.0); Triglycerides 72 mg/dL (<150)
[2024-11-24 18:50] LABS: Prostate Specific Antigen 0.92 ng/mL (<0.05-4.0)
== END 2024-11-24 13:02 | disposition home or self-care (01) ==
LOC: HO.WFDLDS 13:01
PROVIDERS: Visit Provider Internal Medicine
DX: Z12.5 Encounter for screening for malignant neoplasm of prostate (principal); J44.1 Chronic obstructive pulmonary disease with (acute) exacerbation; E78.5 Hyperlipidemia, unspecified; R06.09 Other forms of dyspnea
CPT/HCPCS: 36415; 80053; 80061; 84153